=== PATIENT | male | born 1985 | race Caucasian/White ===

== ENCOUNTER 2016-09-16 18:04 | Inpatient (IN) | payer MEDICAID, OTHER ==
[~2016-09-16] VITALS: Ht 170.2 cm; Wt 50.0 kg
[~2016-09-16 18:04] MED LIST: ALBU2.5V36 NEB; ASCO500C7 PO; BUDE0.5A IH; CEFE1FRO IV; CRAN425C PO; DOCU-159 PO; DULR PR; FER325 PO; LOV40I SC; MAGN400O4 PO; MULT-552 PO; OMEP20CA16 PO; SIME80TA PO; UDTYL PO; VENL25TA PO; Vancomycin Hcl XX; ZINC220C5 PO
[2016-09-16] MEDS ORDERED: ACETAMINOPHEN 650 MG SUPP PR STA (18:08)
[2016-09-16] MEDS ORDERED: CEFEPIME 2GM/50 ML (PMX) 50 ML IVPB STA (18:08)
[2016-09-16] MEDS ORDERED: SODIUM CHLORIDE 0.9% 1L BAG IV* STA (18:08)
[2016-09-16] MEDS ORDERED: VANCOMYCIN 1 GM (PMX) 250 ML IVPB ONE (18:30)
[2016-09-16 19:03] VITALS: Ht 170.2 cm; Wt 50.0 kg
[2016-09-16 19:44] LABS: INR 3.69; MEAN CORPUSCULAR HEMOGLOBIN 27.9 pg (29.0-33.0); MEAN CORPUSCULAR HGB CONC 32.8 g/dl (32.0-37.0); MEAN CORPUSCULAR VOLUME 85.1 fl (82.0-101.0); MEAN PLATELET VOLUME 7.6 fl (7.4-10.4); PLATELET COUNT 86 10^3/UL (140-440); PROTIME 37.2 Sec (12.2-14.2); PT RATIO 2.9; RED BLOOD COUNT 1.17 10^6/ul (4.70-6.10); RED CELL DISTRIBUTION WIDTH 15.3 % (11.5-14.5); UNCORRECTED WBC 6.3 10^3/ul (4.8-10.8); WHITE BLOOD COUNT 6.3 10^3/ul (4.8-10.8)
--- NOTE | 2016-09-16 19:46 | RADRPT ---
PROCEDURE: XR Chest. CLINICAL INDICATION: Possible sepsis. TECHNIQUE: Single frontal view of the chest was obtained COMPARISON: 09/30/2014. FINDINGS: Tracheostomy tube at midline. Cardiac silhouette unremarkable. Calcified thoracic aorta. Left ángel g base atelectasis versus airspace disease versus small pleural effusion. Right lung is clear. There is no pleural effusion or pneumothorax. IMPRESSION: 1. Atherosclerotic calcifications in the thoracic aorta. 2. Left lung base air space disease with small pleural effusion. RPTAT: [facility] Physician Turner Date Time Electronically viewed and signed by Valerie Tobias Physician on 09/16/2016 19:46 RS/
[2016-09-16 20:04] LABS: ALANINE AMINOTRANSFERASE 23 IU/L (13-69); ANION GAP 10 (8-16); ASPARTATE AMINO TRANSFERASE < 8 IU/L (15-46); BLOOD UREA NITROGEN 24 mg/dl (7-20); CHLORIDE 129 mmol/L (97-110); CREATININE 0.59 mg/dl (0.61-1.24); SODIUM 147 mmol/L (135-144); TROPONIN-I 0.048 ng/ml (0.00-0.12)
[2016-09-16 20:05] LABS: PARTIAL THROMBOPLASTIN TIME 76.3 Sec (25.0-35.0)
[2016-09-16 20:06] LABS: CONDITION 1; HEMOGLOBIN 3.3 g/dl (14.0-18.0); LH ANALYZER COMMENTS 1
[2016-09-16 20:07] LABS: ALKALINE PHOSPHATASE < 20 IU/L (42-121); CALCIUM 2.1 mg/dl (8.4-10.2); CARBON DIOXIDE 9 mmol/L (21-31); GLUCOSE 42 mg/dl (70-220); POTASSIUM 1.3 mmol/L (3.5-5.1)
[2016-09-16 20:08] LABS: ALBUMIN < 1.0 g/dl (3.3-4.9); AMYLASE < 30 U/L (11-123); TOTAL PROTEIN < 2.0 g/dl (6.1-8.1)
[2016-09-16] MEDS ORDERED: DEXTROSE 50% 50 ML SYRINGE IV STA (20:08)
[2016-09-16 20:12] LABS: ADD UMIC YES; URINE BILIRUBIN (Dip) NEGATIVE (NEGATIVE); URINE BLOOD (Dip) 2+ (NEGATIVE); URINE COLOR YELLOW (YELLOW); URINE GLUCOSE (Dip) NEGATIVE (NEGATIVE); URINE KETONES (Dip) NEGATIVE (NEGATIVE); URINE LEUKOCYTE ESTERASE (Dip) 3+ (NEGATIVE); URINE NITRITE (Dip) NEGATIVE (NEGATIVE); URINE TOTAL PROTEIN (Dip) 2+ (NEGATIVE); URINE UROBILINOGEN (Dip) 0.2 E.U./dL (0.1-1.0)
[2016-09-16 21:00] LABS: SQUAMOUS EPITHELIAL CELL,UR MODERATE
[2016-09-16 21:01] LABS: BACTERIA,URINE MANY
[2016-09-16 21:53] LABS: HEMOGLOBIN 10.1 g/dl (14.0-18.0); MEAN CORPUSCULAR HEMOGLOBIN 27.5 pg (29.0-33.0); MEAN CORPUSCULAR HGB CONC 32.6 g/dl (32.0-37.0); MEAN CORPUSCULAR VOLUME 84.2 fl (82.0-101.0); MEAN PLATELET VOLUME 8.1 fl (7.4-10.4); PLATELET COUNT 241 10^3/UL (140-440); RED BLOOD COUNT 3.68 10^6/ul (4.70-6.10); RED CELL DISTRIBUTION WIDTH 15.8 % (11.5-14.5); UNCORRECTED WBC 20.5 10^3/ul (4.8-10.8); WHITE BLOOD COUNT 20.5 10^3/ul (4.8-10.8)
[2016-09-16 21:56] LABS: CONDITION 1; LH ANALYZER COMMENTS 1; SUSPECT 1
--- NOTE | 2016-09-16 21:59 | ERA ---
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 No further history is available. The patient is a phasic and EMS indicated they were told that the patient just appeared more confused however it is unknown with the patient's baseline mental status is. According to previous documentation the patient has a spinal cord injury at C1-C2-C3 that resulted in his quadriplegia and has a known history of anemia. Again no further information is available at this time. ROS All systems reviewed and are negative except as per history of present illness. Medications Home Meds Active Scripts [Vancomycin Hcl] 1 EA EACH No Conflict Check, 0 EA XX NOTE for 7 Days, EACH pharmacy to dose for 7 more days Prov:RAKESH BEST 10/02/14 Cefepime Hcl/Dextrose, Iso-Osm (Cefepime 1 Gm Injection) 1 Gm/50 Ml Froz.piggy, 1 GM IV Q12 for 7 Days Prov:RAKESH BEST 10/02/14 Acetaminophen* (Tylenol*) 160 Mg/5 Ml Soln, 650 MG PO Q6H Y for PAIN LEVEL 1-3 OR FEVER for 30 Days Prov:RAKESH BEST 10/02/14 Reported Medications Albuterol Sulfate* (Albuterol Sulfate* Neb) 0.5%-0.5 Ml Neb, 2.5 MG NEB Q4H Y for WHEEZING AND SOB, EA 09/29/14 Docusate Sodium* (Docusate Sodium*) 100 Mg Capsule, 100 MG PO QHS, CAP 09/29/14 Cranberry Extract (Cranberry) 425 Mg Capsule, 425 MG PO DAILY 09/29/14 Bisacodyl* (Bisacodyl*) 10 Mg Supp, 10 MG NJ Q24H for CONSTIPATION, SUPP 09/29/14 Enoxaparin Sodium* (Enoxaparin Sodium*) 40 Mg/0.4 Ml Disp.syrin, 40 MG SC DAILY , SYR 09/29/14 Ferrous Sulfate* (Ferrous Sulfate*) 325 Mg Tabec, 325 MG PO DAILY, TAB 09/29/14 Magnesium Hydroxide* (Milk Of Magnesia*) 400 Mg/5 Ml Oral.susp, 30 ML PO Q24H for CONSTIPATION, ML 09/29/14 Multivitamins* (Once Daily*) 1 Tab Tablet, 1 TAB PO DAILY, TAB 09/29/14 Omeprazole* (Omeprazole*) 20 Mg Capsule.dr, 20 MG PO DAILY, CAP 09/29/14 Budesonide* (Budesonide*) 0.5 Mg/2 Ml Ampul.neb, 0.5 MG IH BID, EA 09/29/14 Simethicone* (Anti-Gas/80*) 80 Mg Tab.chew, 80 MG PO DAILY Y for DISTENSION/GAS/ BLOATING, TAB.CHEW 09/29/14 Venlafaxine Hcl* (Effexor*) 25 Mg Tablet, 25 MG PO DAILY, TAB 09/29/14 Ascorbic Acid* (Vitamin C*) 500 Mg Capsule.sa, 500 MG PO DAILY, CAP 09/29/14 Zinc Sulfate* (Zinc Sulfate*) 220 Mg Cap, 220 MG PO DAILY, CAP 09/29/14 Allergies Allergies: Coded Allergies: No Known Allergy (Unverified , 09/29/14) PMhx/Soc History of Surgery: Yes (TRACH PLACEMENT) Anesthesia Reaction: No (UNKNOWN) Hx Neurological Disorder: Yes (QUADRIPLEGIA, ENCEPHALOPATHY) Hx Respiratory Disorders: Yes (TRACH TO MECH VENT) Hx Cardiac Disorders: No Hx Psychiatric Problems: No Hx Miscellaneous Medical Probl: Yes (vent dependent resp failure w/trach & vent ) Hx Alcohol Use: No (UNKNOWN) Hx Substance Use: No (UNKNOWN) Hx Tobacco Use: No (UNKNOWN) Smoking Status: Never smoker Physical Exam Vitals Vital Signs Date Time Temp Pulse Resp B/P Pulse Ox O2 Delivery O2 Flow Rate FiO2 09/16/16 21:45 101.8 125 16 119/66 100 Mechanical Ventilator 09/16/16 21:15 110 16 111/65 100 Mechanical Ventilator 09/16/16 20:45 112 16 107/56 100 Mechanical Ventilator 09/16/16 20:15 113 16 86/42 100 Mechanical Ventilator 09/16/16 19:45 114 16 88/36 100 Mechanical Ventilator 09/16/16 19:15 124 16 76/47 100 Mechanical Ventilator 09/16/16 19:03 107.3 125 16 117/98 100 09/16/16 18:45 131 16 78/50 100 Mechanical Ventilator 09/16/16 18:10 15 100 Physical Exam Constitutional:Well-developed. Cachectic male. Trach to vent dependent. HEENT:Normocephalic. Atraumatic.Pupils were equal round reactive to light. Moist mucous membranes.No tonsillar exudates. Neck: No nuchal rigidity. No lymphadenopathy. No posterior cervical spine tenderness or step-offs. Patient's head is turned to the right. Tracheostomy site clean dry and intact. Respiratory: Not using accessory muscles of respiration.Lungs were clear to auscultation bilaterally. No rhonchi. No rales. No wheezing. Cardiovascular: Regular rate regular rhythm.No murmurs. No rubs were appreciated.S1, S2 normal. Distal pulses are palpable 2+ bilaterally. GI: Abdomen was soft. Nontender. Non Distended. No pulsatile abdominal masses or bruits. No rebound. No guarding. Bowel sounds were present and normal. Muscle skeletal: Paraplegia with muscle atrophy of the upper and lower extremities Skin: Diaphoretic and very warm to the touch with no petechia, no purpura. No lesions on the palms or the soles of the feet. No maculopapular rash. 5 cm x 4 cm well-circumscribed stage II ulcer over the right buttocks with no purulent drainage NEURO: Patient was alert. Aphasic. Bedbound. Result Diagram: 09/16/16214209/[id number] Results 24 hrs Laboratory Tests Test 09/16/16 18:50 09/16/16 18:55 09/16/16 18:57 09/16/16 20:56 Activated Partial Thromboplast Time 76.3Sec Blood Morphology Comment Hematocrit 10.0% Hemoglobin 3.3g/dl INR International Normalized Ratio 3.69 Mean Corpuscular Hemoglobin 27.9pg Mean Corpuscular Hemoglobin Concent 32.8g/dl Mean Corpuscular Volume 85.1fl Mean Platelet Volume 7.6fl Platelet Count 8610^3/UL Prothrombin Time 37.2Sec Prothrombin Time Ratio 2.9 Red Blood Count 1.1710^6/ul Red Cell Distribution Width 15.3% White Blood Count 6.310^3/ul Alanine Aminotransferase (ALT/SGPT) 23IU/L Albumin < 1.0g/dl Albumin/Globulin Ratio 1.00 Alkaline Phosphatase < 20IU/L Amylase Level < 30U/L Anion Gap 10 Aspartate Amino Transf (AST/SGOT) < 8IU/L Blood Urea Nitrogen 24mg/dl Calcium Level 2.1mg/dl Carbon Dioxide Level 9mmol/L Chloride Level 129mmol/L Creatinine 0.59mg/dl Direct Bilirubin 0.00mg/dl Globulin 1.00g/dl Glucose Level 42mg/dl Indirect Bilirubin 0.0mg/dl Lactic Acid Level 1.0mmol/L 1.1mmol/L Lipase < 10U/L Potassium Level 1.3mmol/L Sodium Level 147mmol/L Total Bilirubin 0.0mg/dl Total Protein < 2.0g/dl Troponin I 0.048ng/ml Urine Amorphous Urates MODERATE Urine Bacteria MANY Urine Bilirubin NEGATIVE Urine Calcium Oxalate Crystals MODERATE Urine Clarity CLOUDY Urine Color YELLOW Urine Glucose NEGATIVE% Urine Hemoglobin 2+ Urine Ketones NEGATIVE Urine Leukocyte Esterase 3+ Urine Microscopic RBC 5-10/HPF Urine Microscopic WBC >200/HPF Urine Nitrite NEGATIVE Urine Specific Beaver 1.010 Urine Squamous Epithelial Cells MODERATE Urine Total Protein 2+ Urine Urobilinogen 0.2 E.U./dL Urine pH >=9.0 Test 09/16/16 21:43 Activated Partial Thromboplast Time 47.0Sec Alanine Aminotransferase (ALT/SGPT) 25IU/L Albumin 3.5g/dl Albumin/Globulin Ratio 0.92 Alkaline Phosphatase 74IU/L Amylase Level 97U/L Anion Gap 18 Aspartate Amino Transf (AST/SGOT) 43IU/L Blood Morphology Comment Blood Urea Nitrogen 83mg/dl Calcium Level 8.2mg/dl Carbon Dioxide Level 28mmol/L Chloride Level 93mmol/L Creatinine 2.21mg/dl Direct Bilirubin 0.00mg/dl Globulin 3.80g/dl Glucose Level 152mg/dl Hematocrit 31.0% Hemoglobin 10.1g/dl INR International Normalized Ratio 1.68 Indirect Bilirubin 0.1mg/dl Lipase 42U/L Mean Corpuscular Hemoglobin 27.5pg Mean Corpuscular Hemoglobin Concent 32.6g/dl Mean Corpuscular Volume 84.2fl Mean Platelet Volume 8.1fl Platelet Count 91277^3/UL Potassium Level 3.7mmol/L Prothrombin Time 19.9Sec Prothrombin Time Ratio 1.6 Red Blood Count 3.6810^6/ul Red Cell Distribution Width 15.8% Sodium Level 135mmol/L Total Bilirubin 0.1mg/dl Total Protein 7.3g/dl Troponin I 0.247ng/ml White Blood Count 20.510^3/ul Current Medications Medications (Trade) Dose Ordered Sig/Shannen Route PRN Reason Start Time Stop Time Status Last Admin Dose Admin Sodium Chloride (NS) 2,170 ml BOLUS OVER 2 HOURS STAT IV* 09/16/16 18:08 09/16/16 18:11 DC 09/16/16 19:01 Acetaminophen 650 mg 650 mg ONCE STAT NJ 09/16/16 18:08 09/16/16 18:11 DC 09/16/16 18:56 Cefepime HCl 50 ml @ 100 mls/hr ONCE STAT IVPB 09/16/16 18:08 09/16/16 18:37 DC 09/16/16 19:20 Vancomycin HCl (Vancocin) 250 ml @ 125 mls/hr ONCE ONCE IVPB 09/16/16 18:30 09/16/16 20:29 DC 09/16/16 20:23 Dextrose 50 ml 50 ml ONCE STAT IV 09/16/16 20:08 09/16/16 20:09 DC 09/16/16 20:22 Norepinephrine (Levophed) 250 ml @ 7.5 mls/hr ONCE STAT IV 09/16/16 22:00 09/18/16 07:19 Acetaminophen (Tylenol Supp) 650 mg ONCE ONCE NJ 09/16/16 22:00 09/16/16 22:07 DC 09/16/16 22:23 Procedures/MDM The patient presented to the emergency department with an acute and persistent change in their mental status. The differential diagnosis is diverse however reversible causes such as hypoglycemia, opiate overdose, thiamine deficiency were immediately considered. The patient was placed on a cardiac exercise physiologist, continuous pulse oximetry and IV access was established. The patients airway was secure however hypoxic events such as anemia, shock, or severe pulmonary disease were all considered as etiologies in this patients presentation. Circulation assessed with poor good cap refill and did require fluids and pressure support. Finger stick for rapid glucose determined to be normal. The patient was pyretic upon arrival with a temperature of 107 rectally. Cooling measures were immediately performed and the patient received rectal acetaminophen for resolution of the patient's elevated core temperature. 12 Lead EKG tracing ordered and reviewed by myself showed: Sinus tachycardia 118 bpm and no arrhythmia. NJ interval normal. QRS duration normal. No ST segment elevation No ST segment depression. No changes consistent with acute ischemia. The patient had a urinary tract infection. Patient's infectious symptoms have not stabilized and the patient is at risk of rapid decompensation. The patient will be admitted for careful hydration, antibiotic therapy, and infectious source control. Severe Sepsis Assessment: Infectious Source: pyleonephritis End organ damage indicated by: Lactate > 2.0 mmol/L Hypotension( SBP < 90 or >40 mmHG drop or MAP < 65) Acute Resp Failure (sat < 92% w/o oxygen) Severe Sepsis Managment: Blood Cultures X 2 before broad spectrum antibiotics initiated within 3 hours of recognition. 30 ml/kg NS bolus Completed Initial Lactate: Pending Repeat Lactate pending Septic Shock Assessment (1 hour post 30 ml/kg fluid bolus): Hypotension (SBP < 90 or 40 mmHg drop, MAP < 65): Yes Lactic acid > 4.0 pending Perfusion Reassessment for Septic Shock: Temp 101.8, Pulse 125, RR 16, BP 119/66 Heart Exam: Tachycardic Lung Exam: No Crackles Capillary Refill: Delayed Peripheral Pulses: Radially present Skin: warm Hypotensive Treatment (not required for isolated lactic acid elevation): Comfort Care: No Central LIne: femoral line Vasopressor started: norepinephrine Troponin was elevated and the patient received aspirin via his PEG tube. I considered further perfusion assessment with CVP measurement, SCVO2, bedside ultrasound volume assessment, passive leg raise, trial of further fluid bolus. And preceded with IV fluids The patient had significant abnormalities at the lab which included hypo-kalemia , hypocalcemia, and severe anemia. Type and screen was obtained and the patient was typed and crossed and 2 units of packed red blood cells had been ordered. However laboratory inform me that they were concerned that the labs are not accurate and therefore the labs are being repeated and will be followed up with the oncoming physician Dr. Montano. Repeat labs indicated that the hemoglobin level was 10 and therefore the packed red blood cells were not given to the patient The patient will admitted to the telemetry service in serious condition with anticipated stay of greater than 2 midnights. The patient was not stable for transfer and I spoke with Dr. Whelan from [facility] who was in agreement with this. Critical Care: Time: 80 minutes Treatments/Evaluations: Close monitoring and treatment of unstable vital signs, cardiorespiratory, and neurologic status, while maintaining tight balance of fluid, respiratory, and cardiac interventions. The patient was critically ill and required central venous access. The patient was unable to consent due to his altered mental status and after was prepped and draped in a sterile fashion. Time out performed and the left femoral vein was cannulated using the Seldinger technique after anesthesia administered with 1% lidocaine locally. A triple lumen catheter used. The guidewire was easily thread into the vessel. The guidewire was retrieved, removed and disposed of. All three ports keshia back venous blood and flushed easily. The line was secured in place with 2 simple interrupted sutures and a biostat was applied over the area in inoculation. The patient tolerated the procedure well with no complications. ED Ultrasound: Central line placed by me using concurrent ultrasound guidance. Real time image archived in the medical record confirms vascular anatomy. Departure Diagnosis: Primary Impression: Encephalopathy Additional Impressions: Heatstroke Severe sepsis Urinary tract infection NSTEMI (non-ST elevation myocardial infarction) Condition: Serious HOLLI BARRERA Sep 16, 2016 21:59
[2016-09-16] MEDS ORDERED: NORepinephrine 8MG/250 ML (PMX 250 ML IV STA (22:00)
[2016-09-16] MEDS ORDERED: ACETAMINOPHEN 650 MG SUPP PR ONE (22:00)
[2016-09-16 22:01] LABS: ALBUMIN 3.5 g/dl (3.3-4.9)
[2016-09-16 22:02] LABS: INR 1.68; POTASSIUM 3.7 mmol/L (3.5-5.1); PROTIME 19.9 Sec (12.2-14.2); PT RATIO 1.6
[2016-09-16 22:04] LABS: BILIRUBIN,INDIRECT 0.1 mg/dl (0-1.1); BILIRUBIN,TOTAL 0.1 mg/dl (0.2-1.3); CREATININE 2.21 mg/dl (0.61-1.24)
[2016-09-16 22:05] LABS: ALBUMIN/GLOBULIN RATIO 0.92; CALCIUM 8.2 mg/dl (8.4-10.2); TOTAL PROTEIN 7.3 g/dl (6.1-8.1)
[2016-09-16 22:19] LABS: TROPONIN-I 0.247 ng/ml (0.00-0.12)
[2016-09-16 22:35] LABS: LYMPHOCYTES # 1.2 10^3/ul (0.8-2.9); MONOCYTE # 1.8 10^3/ul (0.3-0.9); NEUTROPHIL # 16.4 10^3/ul (1.6-7.5)
[2016-09-16 22:38] LABS: LYMPHOCYTES # 0.6 10^3/ul (0.8-2.9); MONOCYTE # 0.2 10^3/ul (0.3-0.9); NEUTROPHIL # 5.2 10^3/ul (1.6-7.5)
[2016-09-16 22:42] LABS: AADO2 Arterial 268.8 mmHg (7.0-24.0); Arterial Base Excess -2.3 mmol/L (-3.0-3); Arterial HCO3 26.4 mmol/L (22.0-26.0); Blood Gas Mean Airway Pressure 4.6; MODE VENT - AC
[2016-09-16] MEDS ORDERED: ALBUTEROL 0.5% (NEB) 2.5 MG/0.5 ML AMP NEB PRN (23:00)
[2016-09-16] MEDS ORDERED: ACETAMINOPHEN 650MG/20.3ML CUP PO PRN (23:00)
[2016-09-16] MEDS ORDERED: NACL 0.9% 3 ML SYG IV SCH (23:00)
[2016-09-16] MEDS ORDERED: morphine 2 MG INJ IV PRN (23:00)
[2016-09-16] MEDS ORDERED: ASPIRIN 325 MG TAB PEG ONE (23:00)
[2016-09-16] MEDS: MAGNESIUM HYDROXIDE 30ML CUP PO SCH (23:00)
[2016-09-16] MEDS ORDERED: VANCOMYCIN IV PER PHARMACY XX SCH (23:00)
[2016-09-16] MEDS: BISACODYL 10 MG SUPP PR SCH (23:00)
[2016-09-16] MEDS: D5W-0.45 NACL + KCL 20 MEQ 1,000 ML IV SCH (23:24)
[2016-09-16] MEDS: PIPER-TAZO 3.375 GM IV (PMX) 100 ML IVPB SCH (23:24)
--- NOTE | 2016-09-17 01:26 | HP ---
DATE OF ADMISSION: 09/16/2016 TIME: 10:15 p.m. CHIEF COMPLAINT: Altered level of consciousness. HISTORY OF PRESENT ILLNESS: The patient is a 31-year-old male who is vent dependent and has a known history of quadriplegia secondary to spinal cord injury at C1, C2, C3. [facility]. The patient reportedly had a sudden change in mental status. The patient is no nverbal. The EMS indicated that the patient appeared more confused. The patient's baseline mental status is unclear. History is obtained from previous medical records. The patient's temperature wa s severely elevated on arrival at 107.3 and it has improved now to 101.8. The patient was hospitali zed here in 2014 under the diagnosis of healthcare-associated pneumonia. The patient is unable to p rovide any history. PAST MEDICAL HISTORY: 1. Quadriplegia secondary to cervical injury with tracheostomy and vent as well as PEG tube placeme nt and chronic encephalopathy. 2. History of healthcare-associated pneumonia. 3. History of anemia of chronic disease as well as sacral decubitus ulcer. HOME MEDICATIONS: Albuterol, Colace, cranberry extract, Lovenox, ferrous sulfate, Milk of magnesia, multivitamin, omeprazole, budesonide, simethicone, Effexor, zinc sulfate, and vitamin C. ALLERGIES: NO KNOWN DRUG ALLERGIES. FAMILY HISTORY: Unknown. SOCIAL HISTORY: Unknown. REVIEW OF SYSTEMS: A 12-point review of systems is unable to be obtained secondary to patient's poo r mentation. PHYSICAL EXAMINATION: VITAL SIGNS: T-max was 107.3, T-current is 101.8, pulse is 125, respiratory rate 16, BP is 190/66, saturation 100% on mechanical ventilation. GENERAL: Nonverbal. HEENT: Normocephalic, atraumatic. LUNGS: Clear to auscultation. CARDIOVASCULAR: Tachycardic. ABDOMEN: Nondistended, soft. EXTREMITIES: No clubbing, cyanosis, or edema. LABORATORIES: White count is 20.5, hemoglobin 7.1, platelets are 241. Chemistry: Sodium is 135, p otassium is 3.7, chloride 93, anion gap is 18, BUN is 83, creatinine is 2.21, calcium is 8.2. Tropo nins 0.247. INR is 1.68. UA initially is greater than 200 WBCs, 3+ leukocyte esterase. DIAGNOSTICS: Chest x-ray shows atherosclerotic calcifications in the thoracic aorta and left lung b ase airspace disease with small pleural effusion. ASSESSMENT AND PLAN: 1. Severe sepsis secondary to urinary tract infection. The patient had a T-max of 107 on arrival. The patient does have leukocytosis and tachycardia and was reported as acute encephalopathy. The p atient will be started on antibiotics. Will get a urine culture with an ID consultation in the a.m. measures as needed. 2. Demand ischemia, likely secondary to sepsis. We will trend the troponins. 3. Acute kidney injury, likely secondary to sepsis. Will treat with IV fluids and antibiotics. 4. History of quadriplegia, status post tracheostomy and PEG. No acute issues. 5. Prophylaxis: SCDs. Dictated By: DIANA HORNE MD BS/NTS Conf#: [id number] DID#: [id number]
--- NOTE | 2016-09-17 01:56 | RADRPT ---
PROCEDURE: CT brain without contrast. CLINICAL INDICATION: Headache. TECHNIQUE: CT of the brain was performed using a [employer] 64-slice VCT scann er. Contiguous axial images using 5-mm slice thickness were obtained from the skull base to the rosina soto without contrast. Coronal and sagittal reformatted images were obtained. Images were reviewed on a PACS workstation. Exam CTD/vol = 44.40 mGy. Total exam DLP = 720.23 mGy-cm. COMPARISON: None. FINDINGS: The ventricles and cortical sulci are within normal limits for patient's age. There are no areas of abnormal attenuation within the brain parenchyma. There is no mass effect or midline shift. There is no intracranial hemorrhage or abnormal extra-axial collection. The calvarium is intact. There is no evidence of fracture. Visualized paranasal sinuses and mastoi d air cells are clear. IMPRESSION: No acute intracranial abnormality identified. .Avtar Daniel MD, MD Date Time Electronically viewed and signed by .Avtar Daniel MD, on 09/17/2016 01:55 .T/
[2016-09-17] MEDS: PANTOPRAZOLE 40 MG INJ IV SCH (05:56)
[2016-09-17] MEDS: PIPER-TAZO 3.375 GM IV (PMX) 100 ML IVPB SCH ×3 (05:57→18:23)
[2016-09-17] MEDS ORDERED: PANTOPRAZOLE (EC) 40 MG TAB PO SCH (06:00)
[2016-09-17 06:01] LABS: HEMATOCRIT 32.2 % (42.0-52.0); HEMOGLOBIN 10.6 g/dl (14.0-18.0); LYMPHOCYTES # 1.2 10^3/ul (0.8-2.9); MEAN CORPUSCULAR HEMOGLOBIN 27.7 pg (29.0-33.0); MEAN CORPUSCULAR HGB CONC 32.7 g/dl (32.0-37.0); MEAN CORPUSCULAR VOLUME 84.5 fl (82.0-101.0); MONOCYTE # 1.2 10^3/ul (0.3-0.9); MONOCYTES % 7.2 % (0.0-11.0); NEUTROPHIL # 14.3 10^3/ul (1.6-7.5); NEUTROPHILS % 85.8 % (39.0-77.0); PLATELET COUNT 179 10^3/UL (140-440); RED BLOOD COUNT 3.81 10^6/ul (4.70-6.10); RED CELL DISTRIBUTION WIDTH 15.9 % (11.5-14.5); UNCORRECTED WBC 16.7 10^3/ul (4.8-10.8); WHITE BLOOD COUNT 16.7 10^3/ul (4.8-10.8)
[2016-09-17 06:11] LABS: POTASSIUM 4.2 mmol/L (3.5-5.1)
[2016-09-17 06:13] LABS: CREATININE 1.69 mg/dl (0.61-1.24)
[2016-09-17 06:14] LABS: CALCIUM 8.3 mg/dl (8.4-10.2)
[2016-09-17 06:15] LABS: CONDITION 1; LH ANALYZER COMMENTS 1; MAGNESIUM 2.6 mg/dl (1.7-2.5)
[2016-09-17] MEDS: MULTIVITAMINS THERAPEUTIC TAB PO SCH (08:58)
[2016-09-17] MEDS: ZINC SULFATE 220 MG CAP PO SCH (08:58)
[2016-09-17] MEDS: VENLAFAXINE 25 MG TAB PO SCH (08:58)
[2016-09-17] MEDS: ASCORBIC ACID 500 MG TAB PO SCH (08:58)
[2016-09-17] MEDS: FERROUS SULFATE (EC) 325 MG TAB PO SCH (08:58)
[2016-09-17] MEDS ORDERED: NON-FORMULARY/PATIENT OWN MED (Cranberry Extract (Cranberry) 425 MG) PO SCH (09:00)
[2016-09-17] MEDS ORDERED: NON-FORMULARY/PATIENT OWN MED (Omeprazole* 20 MG) PO SCH (09:00)
[2016-09-17] MEDS: ENOXAPARIN 40 MG/0.4 ML SYG SC SCH (09:01)
[2016-09-17] MEDS: D5W-0.45 NACL + KCL 20 MEQ 1,000 ML IV SCH (09:01)
[2016-09-17] MEDS: BUDESONIDE (NEB) 0.5MG/2ML AMP INH SCH ×2 (09:09→20:00)
[2016-09-17] MEDS: ONDANSETRON 4 MG INJ IV PRN (14:14)
--- NOTE | 2016-09-17 14:27 | PN ---
DATE: 09/17/2016 SUBJECTIVE: The patient is alert. Family members at the bedside. No acute events overnight. OBJECTIVE VITAL SIGNS: T-max 101.8, presently 99.9, pulse is 103 to 112, respirations 14, blood pressure is t o 98 to 141 systolic over 61 to 82 diastolic, saturating at 100% on mechanical ventilation, FIO2 of 40. GENERAL: The patient lying in bed, not verbal, opens eyes. No acute distress. HEENT: Pupils equal, round, reactive to light. Extraocular muscles intact. NECK: Supple, no thyromegaly. LUNGS: Clear to auscultation bilaterally. CARDIOVASCULAR: Tachycardic heart rate. No rubs or gallops. ABDOMEN: Soft, nontender, nondistended. Normal bowel sounds. MUSCULOSKELETAL: No lower extremity edema bilaterally. LABORATORY DATA: WBC 16.7, hemoglobin 10.6, hematocrit 32.2, platelets of 179. Sodium 137, potassi um 4.2, chloride 96, CO2 26, BUN of 79, creatinine is down to 1.69. Third troponin is 0.192, 4th is 0.142. UA shows 3+ leukocyte esterase positive. ASSESSMENT AND PLAN: This is a 31-year-old male, vent dependent, history of quadriplegia secondary to spinal cord injury, comes from [facility] facility with severe sepsis secondary to urinary t ract infection. 1. Severe sepsis, again white blood cell count slightly less than yesterday, but still elevated. S till having some fevers, but lessened in intensity than yesterday. Continue broad spectrum antibiot ics, Tylenol p.r.n. pain and fevers. Consider ID consult. Follow up culture results. Morphine p.r .n. for pain. Zofran p.r.n. for nausea, vomiting. 2. History of trach. Continue mechanical ventilation for now. Consider followup pulmonary consult for vent management as well. 3. Gastrointestinal prophylaxis. Continue Protonix. 4. Deep venous thrombosis prophylaxis, he is on Lovenox. 5. Acute renal insufficiency. Again secondary to sepsis, slowly improving. Continue to monitor ur ine output. Continue IV fluids for now. 6. History of quadriplegia, status post tracheostomy and percutaneous endoscopic gastrostomy. Cont inue to monitor for now . Dictated By: KINGA NUNEZ/JENNIFER Conf#: [id number] DID#: [id number]
[2016-09-17 19:30] VITALS: TEMP 99.1
[2016-09-17] MEDS ORDERED: VANCOMYCIN 750 MG in SOD CHLORIDE 0.9% 150 ML IVPB SCH (20:00)
[2016-09-17] MEDS ORDERED: VANCOMYCIN 1 GM in NS 250 ML IVPB SCH (20:00)
[2016-09-17] MEDS: DOCUSATE SODIUM 100 MG CAP PO SCH (21:00)
[2016-09-17 21:50] VITALS: RESP 14
[2016-09-17] MEDS: BISACODYL 10 MG SUPP PR SCH (23:00)
[2016-09-17] MEDS: MAGNESIUM HYDROXIDE 30ML CUP PO SCH (23:00)
[2016-09-17 23:30] VITALS: BP 107/67; PULSE 89; RESP 14
[2016-09-17 23:37] VITALS: RESP 14
[2016-09-17 23:45] VITALS: BP 85/58; PULSE 84; RESP 12
[2016-09-18] VITALS (87 sets, daily range): BP systolic 82–163; BP diastolic 51–110; PULSE 45–103; RESP 12–22
[2016-09-18] MEDS ORDERED: NORepinephrine 8MG/250 ML (PMX 250 ML IV SCH
[2016-09-18] MEDS: D5W-0.45 NACL + KCL 20 MEQ 1,000 ML IV SCH ×4 (00:31→20:08)
[2016-09-18] MEDS: PIPER-TAZO 3.375 GM IV (PMX) 100 ML IVPB SCH ×5 (00:35→23:58)
[2016-09-18 05:12] LABS: BASOPHILS % 0.1 % (0.0-2.0); HEMATOCRIT 27.8 % (42.0-52.0); HEMOGLOBIN 8.9 g/dl (14.0-18.0); LYMPHOCYTES # 1.1 10^3/ul (0.8-2.9); LYMPHOCYTES % 7.1 % (15.0-51.0); MEAN CORPUSCULAR HEMOGLOBIN 27.4 pg (29.0-33.0); MEAN CORPUSCULAR HGB CONC 32.1 g/dl (32.0-37.0); MEAN CORPUSCULAR VOLUME 85.3 fl (82.0-101.0); MEAN PLATELET VOLUME 10.5 fl (7.4-10.4); MONOCYTE # 0.6 10^3/ul (0.3-0.9); MONOCYTES % 3.8 % (0.0-11.0); NEUTROPHIL # 13.3 10^3/ul (1.6-7.5); PLATELET COUNT 126 10^3/UL (140-440); RED BLOOD COUNT 3.26 10^6/ul (4.70-6.10); UNCORRECTED WBC 14.9 10^3/ul (4.8-10.8); WHITE BLOOD COUNT 14.9 10^3/ul (4.8-10.8)
[2016-09-18 05:29] LABS: CONDITION 1; LH ANALYZER COMMENTS 1
[2016-09-18 05:37] LABS: POTASSIUM 5.1 mmol/L (3.5-5.1)
[2016-09-18 05:40] LABS: CREATININE 0.85 mg/dl (0.61-1.24)
[2016-09-18] MEDS: PANTOPRAZOLE 40 MG INJ IV SCH (05:52)
[2016-09-18] MEDS: VENLAFAXINE 25 MG TAB PO SCH (08:56)
[2016-09-18] MEDS: MULTIVITAMINS THERAPEUTIC TAB PO SCH (08:56)
[2016-09-18] MEDS: FERROUS SULFATE (EC) 325 MG TAB PO SCH (08:56)
[2016-09-18] MEDS: ASCORBIC ACID 500 MG TAB PO SCH (08:56)
[2016-09-18] MEDS: ENOXAPARIN 40 MG/0.4 ML SYG SC SCH (09:01)
[2016-09-18] MEDS: ZINC SULFATE 220 MG CAP PO SCH (09:03)
[2016-09-18] MEDS: BUDESONIDE (NEB) 0.5MG/2ML AMP INH SCH ×2 (09:53→21:27)
--- NOTE | 2016-09-18 10:23 | PN ---
Date/Time of Note Date/Time of Note DATE: 09/18/16 TIME: 10:17 Assessment/Plan VTE Prophylaxis VTE Prophylaxis Intervention: other Lines/Catheters IV Catheter Type (from Nrsg): Central Line Central line still needed: Yes Urinary Cath still in place: Yes Reason Cath still needed: other (indicate) Assessment/Plan Chief Complaint/Hosp Course ASSESSMENT AND PLAN: This is a 31-year-old male, vent dependent, history of quadriplegia secondary to spinal cord injury, comes from nursing home facility with severe sepsis secondary to urinary tract infection. 1. Severe sepsis, Continue broad spectrum antibiotics, Tylenol p.r.n. pain and fevers. Continue aggressive IV fluids and pressors 2. History of trach. Continue mechanical ventilation for now. Consult blacksmith helper for vent management 3. Acute renal insufficiency. Likely secondary to sepsis, slowly improving. Continue to monitor urine output. Continue IV fluids for now. 4. History of quadriplegia, status post tracheostomy and percutaneous endoscopic gastrostomy. Continue to monitor for now 5. Gastrointestinal prophylaxis. Continue Protonix. 6. Deep venous thrombosis prophylaxis,on Lovenox. We will continue monitor patient closely for recommendation management treatment as clinical course Plan to transfer to telemetry floor when off pressors Restart feeding via Isosource Problems: Subjective 24 Hr Interval Summary Free Text/Dictation Patient is minimally responsive to pain stimuli Continues to be on pressors. Levophed at 4 vargas Vent dependent via trach Exam/Review of Systems Vital Signs Vitals Vital Signs Date Time Temp Pulse Resp B/P Pulse Ox O2 Delivery O2 Flow Rate FiO2 09/18/16 09:54 53 14 100 50 09/18/16 09:15 107/72 09/18/16 09:00 Mechanical Ventilator 09/18/16 08:00 98.8 Intake and Output 09/17/16 09/17/16 09/18/16 15:00 23:00 07:00 Intake Total 207.5 ml Output Total 700 ml 850 ml 100 ml Balance -700 ml -850 ml 107.5 ml Exam General: The patient is cachectic with severe muscle wasting, minimal response HEENT: Atraumatic, normocephalic. The pupils are symmetric Neck: Tracheostomy in place Chest: Normal Lungs: Decreased breath sounds bilateral lower lung field Heart: Normal S1-S2, Abdomen: Soft , nontender, nondistended , bowel sounds are present. PEG tube in place Extremities: Severe muscle wasting and contracture Neurologic: Minimal response to pain stimuli Results Result Diagram: 09/18/16 0414 09/18/164 Results 24 hrs Laboratory Tests Test 09/18/16 04:14 09/18/16 08:23 Anion Gap 16 Basophils # 0.0 Basophils % 0.1 Blood Morphology Comment Blood Urea Nitrogen 30 #H Calcium Level 8.0 L Carbon Dioxide Level 25 Chloride Level 104 Creatinine 0.85 Eosinophils # 0.0 Eosinophils % 0.0 Glucose Level 382 #H Hematocrit 27.8 L Hemoglobin 8.9 L Lymphocytes # 1.1 Lymphocytes % 7.1 L Mean Corpuscular Hemoglobin 27.4 L Mean Corpuscular Hemoglobin Concent 32.1 Mean Corpuscular Volume 85.3 Mean Platelet Volume 10.5 H Monocytes # 0.6 Monocytes % 3.8 Neutrophils # 13.3 H Neutrophils % 89.0 H Nucleated Red Blood Cells # 0.0 Nucleated Red Blood Cells % 0.0 Platelet Count 126 #L Potassium Level 5.1 Red Blood Count 3.26 L Red Cell Distribution Width 16.0 H Sodium Level 140 White Blood Count 14.9 H Bedside Glucose 147 Medications Medications Current Medications Potassium Chloride/Dextrose/ Sod Cl (D5-1/2ns + KCl 20 Meq) 1,000 ml @ 100 mls/ hr Q10H IV Last administered on 09/18/16 08:28; Admin Dose 100 MLS/HR; Start at 22:41 Ondansetron HCl (Zofran Inj) 4 mg Q6H PRN IV NAUSEA AND/OR VOMITING Last administered on 09/17/16 14:14; Admin Dose 4 MG; Start 09/16/16 at 23:00 Morphine Sulfate 2 mg 2 mg Q4H PRN IV SEVERE PAIN LEVEL 7-10; Start 09/16/16 at 23:00 Piperacillin Sod/ Tazobactam Sod (Zosyn 3.375gm/ 100 ml (Pmx)) 100 ml @ 200 mls /hr Q6 IVPB Last administered on 09/18/16 05:53; Admin Dose 200 MLS/HR; Start 09/17/16 at 00:00 Acetaminophen (Tylenol Liquid) 650 mg Q6H PRN PO PAIN LEVEL 1-3 OR FEVER Last administered on 09/17/16 14:44; Admin Dose 650 MG; Start 09/16/16 at 23:00 Ascorbic Acid (Vitamin C) 500 mg DAILY PO Last administered on 09/18/16 08:56; Admin Dose 500 MG; Start 09/17/16 at 09:00 Bisacodyl (Dulcolax Supp) 10 mg Q24H RI ; Start 09/16/16 at 23:00 Docusate Sodium (Colace) 100 mg QHS PO ; Start 09/17/16 at 21:00 Enoxaparin Sodium (Lovenox) 40 mg DAILY SC Last administered on 09/18/16 09:01 ; Admin Dose 40 MG; Start 09/17/16 at 09:00 Ferrous Sulfate (Ferrous Sulfate (Ec)) 325 mg DAILY PO Last administered on 09/18 08:56; Admin Dose 325 MG; Start 09/17/16 at 09:00 Magnesium Hydroxide (Milk Of Mag) 30 ml Q24H PO ; Start 09/16/16 at 23:00 Multivitamins Therapeutic (Theragran) 1 tab DAILY PO Last administered on 08:56; Admin Dose 1 TAB; Start 09/17/16 at 09:00 Simethicone (Mylicon) 80 mg DAILY PRN PO DISTENSION/GAS/BLOATING; Start at 23:00 Venlafaxine HCl (Effexor) 25 mg DAILY PO Last administered on 09/18/16 08:56; Admin Dose 25 MG; Start 09/17/16 at 09:00 Zinc Sulfate (Zinc Sulfate) 220 mg DAILY PO Last administered on 09/18/16 09:03 ; Admin Dose 220 MG; Start 09/17/16 at 09:00 Pantoprazole 40 mg 40 mg DAILY@06 IV Last administered on 09/18/16 05:52; Admin Dose 40 MG; Start 09/17/16 at 06:00 Norepinephrine 250 ml @ 1.875 mls/ hr TITRATE IV Last administered on 00:29; Admin Dose 7.5 MLS/HR; Start 09/18/16 at 00:00 Norepinephrine 16 mg/Dextrose 500 ml @ 1.87 mls/hr TITRATE IV ; Start 09/17/16 at 23:45 Vancomycin HCl/ Sodium Chloride (Vancocin/NS) 150 ml @ 75 mls/hr Q12H IVPB ; Start 09/18/16 at 11:00 DEBORAH CHEN MD Sep 18, 2016 10:23
[2016-09-18] MEDS: ONDANSETRON 4 MG INJ IV PRN (10:47)
[2016-09-18] MEDS: VANCOMYCIN 750 MG in SOD CHLORIDE 0.9% 150 ML IVPB SCH ×2 (11:30→22:36)
[2016-09-18 14:56] LABS: AADO2 Arterial 204.7 mmHg (7.0-24.0); Allen Test ACCEPTAB; Arterial COHb 0.3 % (0.0-3.0); Arterial Fraction of Oxyhgb 96.5 % (93.0-99.0); Arterial HCO3 24.8 mmol/L (22.0-26.0); Arterial MetHb 0 % (0.0-1.5); Arterial Total Hemglobin 10.6 g/dl (12.0-18.0); Blood Gas Low PEEP Setting 0 cmH2O; MODE VENT - AC
--- NOTE | 2016-09-18 16:15 | CONS ---
DATE OF ADMISSION: 09/16/2016 DATE OF CONSULTATION: 09/18/2016 REASON FOR CONSULTATION: Ventilator management. Thank you, Dr. Montano, for this consultation. HISTORY OF PRESENT ILLNESS: This is a 31-year-old gentleman with history of vent-dependent respirat ory failure, quadriplegia, spinal cord injury, transferred from [facility] facility for change in mentation, found to have a fever of 107 on admission and 101 with leukocytosis and urinalysis pos itive for E. coli infection, positive for gram-negative rods, cultures of which are pending at this time. The patient is currently nonverbal and unable to give me further details. PAST MEDICAL HISTORY: As above. MEDICATIONS: Per chart. ALLERGIES: NONE. PHYSICAL EXAMINATION: GENERAL: Chronically ill appearing gentleman, appears comfortable at rest, no acute distress. VITAL SIGNS: Currently afebrile, pulse is 56, blood pressure 128/95, O2 saturation 96%, FIO2 of 50% . NECK: Supple. No JVD or lymphadenopathy. CARDIAC: S1, S2, no added sounds or murmurs. CHEST: Diminished air entry bilaterally. ABDOMEN: Soft, nontender. No guarding or rebound. EXTREMITIES: No cyanosis, clubbing, edema. NEUROLOGIC: Generalized weakness. LABORATORY DATA: White count 14.9, hemoglobin 8.9, platelets 126, BUN 30, creatinine 0.85. Initial ABG: pH 7.24, pCO2 of 37, pCO2 of 62, PaO2 of 381. INR 1.68. Urinalysis positive for UTI. IMPRESSION AND PLAN: 1. Gram-negative urinary tract infection with septic shock. 2. Vent dependent respiratory failure. 3. Chronic encephalopathy. 4. History of C-spine disease with quadriplegia. 5. Dysphagia with G-tube. PLAN: The patient will require: 1. Continue broad-spectrum antibiotics, currently on Zosyn and vancomycin. 2. Monitor hemoglobin and hematocrit. 3. Vasopressors as needed. 4. Tube feeding as tolerated. 5. Deep venous thrombosis and gastrointestinal prophylaxis. Dictated By: ROLANDO NOLAND/JENNIFER Conf#: [id number] DID#: [id number]
--- NOTE | 2016-09-18 17:10 | CONS ---
DATE OF ADMISSION: 09/16/2016 DATE OF CONSULTATION: 09/18/2016 TYPE OF CONSULTATION: Infectious Disease. REASON FOR CONSULTATION: Antibiotic management. HISTORY OF PRESENT ILLNESS: Aaron Flores is a 31-year-old male with numerous problem s who comes in with altered levels of consciousness. His problems include: 1. Quadriplegia secondary to cervical injury. 2. Ventilator-dependent respiratory failure, status post tracheostomy. 3. Dysphagia, status post G-tube placement. 4. Chronic encephalopathy. 5. History of healthcare-associated pneumonia. 6. Anemia of chronic disease. 7. Sacral decubitus ulcer. The patient had a quadriplegic secondary to spinal cord injury at C1-2 and 3. He has had a sudden c hange in his mental status according to his long term facility, and on admission, his temperat ure was 107.3, then down to 101.8. He was hospitalized under the diagnosis of healthcare-associated pneumonia in 2014. On admission on the , his white count was 20.5, hemoglobin of 7.1, platelet count 241,000, BUN and creatinine 83/2.21. Urinalysis showed greater than 200 white cells per high- power field, 3+ leukocyte esterase. Chest x-ray shows atherosclerotic calcification of the thoracic aorta, left lung base airspace with small pleural effusion. PAST MEDICAL HISTORY: Operations as outlined. FAMILY HISTORY: Noncontributory. SOCIAL HISTORY: He does not smoke, drink or abuse drugs. ALLERGIES: NONE TO PENICILLIN, SULFA OR FOODS. MEDICATIONS: Per chart. REVIEW OF SYSTEMS: As per HPI. PHYSICAL EXAMINATION: GENERAL: The patient is a chronically ill-appearing white male who is awake, but noncommunicative, in no acute distress. VITAL SIGNS: Stable. His T-max is 100.6, but today his T-current is 98.2/97.4. SKIN: Without generalized rash. He has a trach, PEG, Grant. HEENT: Within normal limits. NECK: Supple. LYMPH NODES: None palpable. CHEST: Decreased breath sounds at the bases. HEART: Without murmur or gallop. ABDOMEN: Soft, nontender, without organosplenomegaly or masses. EXTREMITIES: Without cyanosis, clubbing, or edema. RECTAL AND GENITAL: Deferred. NEUROLOGIC: The patient is cephalopathic, does not follow commands, moves all extremities. IMAGING: Chest x-ray shows left lung atelectasis versus airspace disease versus small left pleural effusion, right lung is clear. Brain CT: No acute intracranial abnormality identified. MICROBIOLOGY: Blood cultures are negative. Clostridium difficile assay is negative. Urine culture greater than 10 to the 5th gram-negative rods. IMPRESSION AND PLAN: The patient was started on vancomycin and Zosyn. We will continue him on this regimen until we get the results of the cultures. It seems that he has severe sepsis secondary to urinary tract infection. I will dictate my findings to Dr. Montano, Dr. Last Lares, the hospita list. Dictated By: ELINOR LOPEZ MD, JD/JENNIFER Conf#: [id number] DID#: [id number]
[2016-09-18] MEDS: DOCUSATE SODIUM 100 MG CAP PO SCH (20:09)
[2016-09-18] MEDS: BISACODYL 10 MG SUPP PR SCH (22:37)
[2016-09-18] MEDS: MAGNESIUM HYDROXIDE 30ML CUP PO SCH (22:37)
[2016-09-19] VITALS (22 sets, daily range): BP systolic 90–134; BP diastolic 67–104; PULSE 41–98; RESP 14–16
[2016-09-19] MEDS: PANTOPRAZOLE 40 MG INJ IV SCH (05:32)
[2016-09-19] MEDS: PIPER-TAZO 3.375 GM IV (PMX) 100 ML IVPB SCH ×2 (05:32→12:41)
[2016-09-19 06:07] LABS: BASOPHILS % 0.2 % (0.0-2.0); EOSINOPHILS # 0.1 10^3/ul (0.0-0.5); EOSINOPHILS % 1.1 % (0.0-7.0); HEMATOCRIT 25.7 % (42.0-52.0); HEMOGLOBIN 8.3 g/dl (14.0-18.0); LYMPHOCYTES # 1.2 10^3/ul (0.8-2.9); LYMPHOCYTES % 11.5 % (15.0-51.0); MEAN CORPUSCULAR HEMOGLOBIN 27.5 pg (29.0-33.0); MEAN CORPUSCULAR HGB CONC 32.4 g/dl (32.0-37.0); MEAN CORPUSCULAR VOLUME 84.9 fl (82.0-101.0); MEAN PLATELET VOLUME 10.2 fl (7.4-10.4); MONOCYTE # 0.4 10^3/ul (0.3-0.9); MONOCYTES % 4.1 % (0.0-11.0); NEUTROPHIL # 8.5 10^3/ul (1.6-7.5); NEUTROPHILS % 83.1 % (39.0-77.0); PLATELET COUNT 101 10^3/UL (140-440); RED BLOOD COUNT 3.03 10^6/ul (4.70-6.10); RED CELL DISTRIBUTION WIDTH 15.6 % (11.5-14.5); UNCORRECTED WBC 10.2 10^3/ul (4.8-10.8); WHITE BLOOD COUNT 10.2 10^3/ul (4.8-10.8)
[2016-09-19 06:27] LABS: CONDITION 1; LH ANALYZER COMMENTS 1
[2016-09-19 06:28] LABS: POTASSIUM 4.1 mmol/L (3.5-5.1)
[2016-09-19 06:31] LABS: CALCIUM 8.5 mg/dl (8.4-10.2); CREATININE 0.7 mg/dl (0.61-1.24)
[2016-09-19 08:25] LABS: AADO2 Arterial 101.5 mmHg (7.0-24.0); Allen Test ACCEPTAB; Arterial Base Excess -2.6 mmol/L (-3.0-3); Arterial COHb 0.3 % (0.0-3.0); Arterial Fraction of Oxyhgb 98.3 % (93.0-99.0); Arterial MetHb 0 % (0.0-1.5); Arterial Total Hemglobin 11.8 g/dl (12.0-18.0); Blood Gas Low PEEP Setting 0 cmH2O; MODE VENT - AC
[2016-09-19] MEDS: ZINC SULFATE 220 MG CAP PO SCH (09:00)
[2016-09-19] MEDS: FERROUS SULFATE (EC) 325 MG TAB PO SCH (09:00)
[2016-09-19] MEDS: MULTIVITAMINS THERAPEUTIC TAB PO SCH (09:00)
[2016-09-19] MEDS: ASCORBIC ACID 500 MG TAB PO SCH (09:00)
[2016-09-19] MEDS: VENLAFAXINE 25 MG TAB PO SCH (09:00)
[2016-09-19] MEDS: ENOXAPARIN 40 MG/0.4 ML SYG SC SCH (09:03)
[2016-09-19] MEDS: BUDESONIDE (NEB) 0.5MG/2ML AMP INH SCH (09:15)
[2016-09-19] MEDS: D5W-0.45 NACL + KCL 20 MEQ 1,000 ML IV SCH (09:53)
--- NOTE | 2016-09-19 10:12 | PDOCDIS ---
Discharge Instructions CONDITION Patient Condition: Fair HOME CARE INSTRUCTIONS: Diet Instructions: ACTIVITY: Activity Restrictions: No Weight Bearing DEBORAH CHEN MD Sep 19, 2016 10:12
[2016-09-19] MEDS ORDERED: PIPE3.374 IVPB (10:14)
[2016-09-19] MEDS ORDERED: LEVO500T72 PO (10:14)
--- NOTE | 2016-09-19 10:34 | RADRPT ---
PROCEDURE: XR Chest. CLINICAL INDICATION: pain TECHNIQUE: Single portable view of the chest was obtained COMPARISON: 09/16/2016 FINDINGS: There is decreased left lower lobe infiltrate and left pleural effusion. The heart is normal in siz e. There is a tracheostomy tube in place. There is no pleural effusion or pneumothorax.. The heart , lungs and mediastinum are otherwise unchanged. . RPTAT: AA IMPRESSION: Decreased left lower lobe infiltrate and left pleural effusion. No other significant change. .Rafal Damon MD, MD Date Time Electronically viewed and signed by .Rafal Damon MD, on 09/19/2016 10:34 .S/
--- NOTE | 2016-09-19 11:07 | CONS ---
Date/Time of Note Date/Time of Note DATE: 09/19/16 TIME: 11:06 Consult Date/Type/Reason Admit Date/Time Sep 16, 2016 at 22:45 Initial Consult Date Type of Consultation: pulmonary Subjective Patient remains stable awake alert Appears to have mild discomfort Attempting to talk Objective Vital Signs Date Time Temp Pulse Resp B/P Pulse Ox O2 Delivery O2 Flow Rate FiO2 09/19/16 09:17 55 16 100 30 09/19/16 09:00 123/93 09/19/16 08:00 97.4 Mechanical Ventilator Intake and Output 09/18/16 09/18/16 09/19/16 15:00 23:00 07:00 Intake Total 1093.25 ml 441.22 ml 260 ml Output Total 465 ml 405 ml 675 ml Balance 628.25 ml 36.22 ml -415 ml PHYSICAL EXAMINATION: GENERAL: Chronically ill appearing gentleman, appears comfortable at rest, no acute distress. VITAL SIGNS: NECK: Supple. No JVD or lymphadenopathy. CARDIAC: S1, S2, no added sounds or murmurs. CHEST: Diminished air entry bilaterally. ABDOMEN: Soft, nontender. No guarding or rebound. EXTREMITIES: No cyanosis, clubbing, edema. NEUROLOGIC: Generalized weakness. Results/Medications Result Diagram: 09/19/16 0450 09/19/16 0450 Results 24 hrs Laboratory Tests Test 09/18/16 14:00 09/19/16 04:50 09/19/16 07:00 Arterial Blood HCO3 24.8 22.0 Arterial Blood Base Excess -2.0 -2.6 Arterial Blood Oxygen Saturation 96.8 98.6 H Farhan Test ACCEPTAB ACCEPTAB Arterial Blood Gas Puncture Site Right Radial Right Radial Arterial Blood Carboxyhemoglobin 0.3 0.3 Arterial Blood Date Drawn 09/18/2016 2:30:11 PM 09/19/2016 7:30:13 AM Arterial Blood Methemoglobin 0 0 Arterial Blood pCO2 (Temp correct) 52.1 H 37.1 Arterial Blood pH (Temp corrected) 7.296 *L 7.390 Arterial Blood pO2 (Temp corrected) 93.2 141.0 H Blood Gas A-a O2 Differential 204.7 H 101.5 H Blood Gas Actual Respiration Rate 14 17 Blood Gas Critical Value Read Back K FARLESS RN Blood Gas Low PEEP Setting 0 0 Blood Gas Modality VENT - AC VENT - AC Blood Gas Notified Time 09/18/2016 2:55:28 PM 09/19/2016 8:24:55 AM Blood Gas Notified Whom JLD JLD Blood Gas Respiration Rate 14.0 16.0 Blood Gas Specimen Source Blood arterial Blood arterial Blood Gas Temperature 37.0 37.0 Blood Gas Tidal Volume 450.0 500.0 FiO2 50.0 40.0 Oxyhemoglobin Percent 96.5 98.3 Total Hemoglobin 10.6 L 11.8 L Anion Gap 12 Basophils # 0.0 Basophils % 0.2 Blood Morphology Comment Blood Urea Nitrogen 19 # Calcium Level 8.5 Carbon Dioxide Level 26 Chloride Level 109 Creatinine 0.70 Eosinophils # 0.1 Eosinophils % 1.1 Glucose Level 357 H Hematocrit 25.7 L Hemoglobin 8.3 L Lymphocytes # 1.2 Lymphocytes % 11.5 L Mean Corpuscular Hemoglobin 27.5 L Mean Corpuscular Hemoglobin Concent 32.4 Mean Corpuscular Volume 84.9 Mean Platelet Volume 10.2 Monocytes # 0.4 Monocytes % 4.1 Neutrophils # 8.5 H Neutrophils % 83.1 H Nucleated Red Blood Cells # 0.0 Nucleated Red Blood Cells % 0.0 Platelet Count 101 L Potassium Level 4.1 Red Blood Count 3.03 L Red Cell Distribution Width 15.6 H Sodium Level 143 White Blood Count 10.2 # Medications Current Medications Potassium Chloride/Dextrose/ Sod Cl (D5-1/2ns + KCl 20 Meq) 1,000 ml @ 100 mls/ hr Q10H IV Last administered on 09/19/16 09:53; Admin Dose 100 MLS/HR; Start 09/16/16 at 22:41 Ondansetron HCl (Zofran Inj) 4 mg Q6H PRN IV NAUSEA AND/OR VOMITING Last administered on 09/18/16 10:47; Admin Dose 4 MG; Start 09/16/16 at 23:00 Morphine Sulfate 2 mg 2 mg Q4H PRN IV SEVERE PAIN LEVEL 7-10; Start 09/16/16 at 23:00 Piperacillin Sod/ Tazobactam Sod (Zosyn 3.375gm/ 100 ml (Pmx)) 100 ml @ 200 mls /hr Q6 IVPB Last administered on 09/19/16 05:32; Admin Dose 200 MLS/HR; Start 09/17/16 at 00:00 Acetaminophen (Tylenol Liquid) 650 mg Q6H PRN PO PAIN LEVEL 1-3 OR FEVER Last administered on 09/17/16 14:44; Admin Dose 650 MG; Start 09/16/16 at 23:00 Ascorbic Acid (Vitamin C) 500 mg DAILY PO Last administered on 09/19/16 09:00 ; Admin Dose 500 MG; Start 09/17/16 at 09:00 Bisacodyl (Dulcolax Supp) 10 mg Q24H DC Last administered on 09/18/16 22:37; Admin Dose 10 MG; Start 09/16/16 at 23:00 Docusate Sodium (Colace) 100 mg QHS PO ; Start 09/17/16 at 21:00 Enoxaparin Sodium (Lovenox) 40 mg DAILY SC Last administered on 09/19/16 09:03 ; Admin Dose 40 MG; Start 09/17/16 at 09:00 Ferrous Sulfate (Ferrous Sulfate (Ec)) 325 mg DAILY PO Last administered on 09:00; Admin Dose 325 MG; Start 09/17/16 at 09:00 Magnesium Hydroxide (Milk Of Mag) 30 ml Q24H PO Last administered on 09/18/16 22:37; Admin Dose 30 ML; Start 09/16/16 at 23:00 Multivitamins Therapeutic (Theragran) 1 tab DAILY PO Last administered on 09:00; Admin Dose 1 TAB; Start 09/17/16 at 09:00 Simethicone (Mylicon) 80 mg DAILY PRN PO DISTENSION/GAS/BLOATING; Start at 23:00 Venlafaxine HCl (Effexor) 25 mg DAILY PO Last administered on 09/19/16 09:00; Admin Dose 25 MG; Start 09/17/16 at 09:00 Zinc Sulfate (Zinc Sulfate) 220 mg DAILY PO Last administered on 09/19/16 09: 00; Admin Dose 220 MG; Start 09/17/16 at 09:00 Pantoprazole 40 mg 40 mg DAILY@06 IV Last administered on 09/19/16 05:32; Admin Dose 40 MG; Start 09/17/16 at 06:00 Norepinephrine 250 ml @ 1.875 mls/ hr TITRATE IV Last administered on 00:29; Admin Dose 7.5 MLS/HR; Start 09/18/16 at 00:00 Norepinephrine 16 mg/Dextrose 500 ml @ 1.87 mls/hr TITRATE IV ; Start 09/17/16 at 23:45 Vancomycin HCl/ Sodium Chloride (Vancocin/NS) 150 ml @ 75 mls/hr Q12H IVPB Last administered on 09/18/16t 22:36; Admin Dose 75 MLS/HR; Start 09/18/16 at 11: 00 Assessment/Plan Chief Complaint/Hosp Course IMPRESSION AND PLAN: 1. Gram-negative urinary tract infection with septic shock. Improved hemodynamics 2. Vent dependent respiratory failure. 3. Chronic encephalopathy. 4. History of C-spine disease with quadriplegia. 5. Dysphagia with G-tube. 6. Chronic anemia PLAN: The patient will require: 1. Continue broad-spectrum antibiotics, currently on Zosyn and vancomycin. 2. Monitor hemoglobin and hematocrit. Consider transfusion 1 unit packed red blood cells prior to discharge 3. Free water per G-tube 4. Tube feeding as tolerated. 5. Deep venous thrombosis and gastrointestinal prophylaxis. Agree with discharge planning Problems: ROLANDO COLIN MD, [facility] Sep 19, 2016 11:07
[2016-09-19] MEDS: VANCOMYCIN 750 MG in SOD CHLORIDE 0.9% 150 ML IVPB SCH (11:11)
--- NOTE | 2016-09-19 13:26 | PN ---
DATE: 09/19/2016 SUBJECTIVE: No changes overnight. The patient is off pressors, awake, in no distress. No fevers. WBC today 10.2, platelets 101, neutrophils 83.1, BUN 19, creatinine 0.70. MICROBIOLOGY: Blood cultures remain negative. Stool for C. diff negative. Urine culture growing g kiko-negative rods. INDWELLINGS: Trach, PEG, Grant, right femoral triple-lumen catheter. ANTIMICROBIALS: 1. Vancomycin. 2. Zosyn. DIAGNOSTICS: Chest x-ray this morning revealed decreased left lower lobe infiltrate and left pleura l effusions. PHYSICAL EXAMINATION: GENERAL: This is a chronically ill-appearing, middle-aged man who is in no distress. HEENT: Head atraumatic, normocephalic. Sclerae anicteric. Buccal mucosa dry. NECK: Supple. Tracheostomy present. CHEST: Rise symmetrical. Breath sounds diminished to bases. HEART: S1, S2. ABDOMEN: Soft. Bowel tones hypoactive. EXTREMITIES: Contractured, wasted with multiple chronic wounds, pressure sores. ASSESSMENT: 1. Sepsis status post shock, improving. 2. Urinary tract infection. 3. Healthcare-associated pneumonia. 4. Multiple pressure sores and chronic decubitus. 5. Chronic encephalopathy. 6. History of cervical spine injury with resulting quadriplegia. PLAN: The patient remains stable, currently off pressors. No fevers. Final cultures are pending. His white blood cell count decreased to normal. We will continue him on current regimen and await f or final cultures. Dictated By: SERENA SANTIAGO FUNCTIONAL TESTER TYPEWRITERS for ELINOR KINSEY/JENNIFER Conf#: [id number] DID#: [id number]
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
== END 2016-09-19 17:50 | DRG 871 ==
LOC: E/R 18:04 → TEL 22:45 → ICU 09-17 22:50
PROVIDERS: ADMIT Internal Medicine; ATTEND Internal Medicine
PROC: 5A1945Z Respiratory Ventilation, 24-96 Consecutive Hours (ICD-10-PCS; principal; 2016-09-16)
DX: A41.50 Gram-negative sepsis, unspecified (principal); R65.21 Severe sepsis with septic shock; G93.49 Other encephalopathy; G82.50 Quadriplegia, unspecified; L89.214 Pressure ulcer of right hip, stage 4; Z99.11 Dependence on respirator [ventilator] status; D69.6 Thrombocytopenia, unspecified; N17.9 Acute kidney failure, unspecified; N39.0 Urinary tract infection, site not specified; L89.222 Pressure ulcer of left hip, stage 2; Z93.0 Tracheostomy status; Z93.1 Gastrostomy status; R13.10 Dysphagia, unspecified; D64.9 Anemia, unspecified; E16.2 Hypoglycemia, unspecified; L89.512 Pressure ulcer of right ankle, stage 2
CPT/HCPCS: 36415; 36600; 70450; 71010; 76937; 80048; 80053; 81001; 81003; 82150; 82803; 82962; 83036; 83605; 83690; 83735; 84100; 84484; 85025; 85610; 85730; 86850; 86900; 86901; 86920; 87040; 87045; 87075; 87081; 87086; 93005; 94002; 94003; 94640; 94664; 94799; 96372; 96374; 96375; 96376; C1751; C9113; J1650; J2405; J2543; J3370; J3480; J7030

== ENCOUNTER 2018-03-23 21:34 | Inpatient (IN) | END 2018-03-30 20:08 | DRG 870 ==

== ENCOUNTER 2018-10-18 19:49 | Inpatient (IN) | payer OTHER ==
[~2018-10-18] VITALS: Ht 177.8 cm; Wt 69.0 kg
[~2018-10-18 19:49] MED LIST changes: +ACET325T33 GTB; -ALBU2.5V36 NEB; -ASCO500C7 PO; +ASPI-817 GTB; +BALS60OI TOP; -BUDE0.5A IH; +BUDE0.5A INHALATION; -CEFE1FRO IV; +CHLO473M7 MM; -CRAN425C PO; +CRAN425C6 GTB; +DOCU-144 GTB; -DOCU-159 PO; -DULR PR; +ENOX30DI10 SQ; -FER325 PO; +FERR220S13 PO; +LACT1CAP72 GTB; -LOV40I SC; -MAGN400O4 PO; +MIDO10TA GTB; -MULT-552 PO; +MULTI GTB; +OMEP20CA16 GTB; -OMEP20CA16 PO; +SAN30GM TOP; -SIME80TA PO; +TRAM50TA GTB; -UDTYL PO; -VENL25TA PO; -Vancomycin Hcl XX; -ZINC220C5 PO
[2018-10-18] MEDS ORDERED: CEFEPIME 2GM/50 ML (PMX) 50 ML IVPB STA (19:50)
[2018-10-18] MEDS ORDERED: SODIUM CHLORIDE 0.9% 1L BAG IV* STA (19:50)
[2018-10-18] MEDS ORDERED: VANCOMYCIN 1 GM (PMX) 250 ML IVPB ONE (20:00)
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
[2018-10-18] MEDS ORDERED: ACETAMINOPHEN 325 MG TAB PO ONE (20:30)
[2018-10-18] MEDS ORDERED: ACID1CAP GTB (21:07)
[2018-10-18] MEDS ORDERED: ASPI-903 GTB (21:08)
[2018-10-18] MEDS ORDERED: CHLO473M2 MM (21:10)
[2018-10-18] MEDS ORDERED: DOCU-144 GTB (21:11)
[2018-10-18] MEDS ORDERED: CRAN425C6 GTB (21:12)
[2018-10-18] MEDS ORDERED: FERR220S13 GTB (21:13)
[2018-10-18] MEDS ORDERED: ENOX30DI10 SQ (21:14)
[2018-10-18] MEDS ORDERED: MIDO10TA GTB (21:15)
[2018-10-18] MEDS ORDERED: MULTI GTB (21:16)
[2018-10-18] MEDS ORDERED: OMEP20CA16 GTB (21:18)
[2018-10-18] MEDS ORDERED: BUDE0.5A INHALATION (21:18)
[2018-10-18] MEDS ORDERED: ACET325T33 GTB ×2 (21:21)
[2018-10-18] MEDS ORDERED: TYL500 GTB (21:22)
[2018-10-18] MEDS ORDERED: TRAM50TA2 GTB (21:23)
[2018-10-18] MEDS ORDERED: VIT500LI GTB (21:25)
[2018-10-18] MEDS ORDERED: VANCOMYCIN IV PER PHARMACY XX SCH (21:30)
[2018-10-18] MEDS ORDERED: ACETAMINOPHEN 325 MG TAB PO PRN (21:30)
[2018-10-18] MEDS ORDERED: NACL 0.9% 3 ML SYG IV SCH (21:30)
[2018-10-18] MEDS ORDERED: ONDANSETRON 4 MG INJ IV PRN ×2 (21:30)
[2018-10-18 22:22] VITALS: RESP 18
[2018-10-18] MEDS ORDERED: IPRA3AMP29 INHALATION (22:25)
[2018-10-18 22:34] VITALS: PULSE 95
[2018-10-18 23:32] VITALS: Ht 177.8 cm; Wt 69.0 kg
[2018-10-18 23:48] VITALS: RESP 18
[2018-10-18 23:50] VITALS: BP 96/55; PULSE 78; RESP 18
[2018-10-19] VITALS (24 sets, daily range): BP systolic 95–115; BP diastolic 51–77; PULSE 51–105; RESP 16–19
[2018-10-19] MEDS: SOD CHLORIDE 0.9% 1,000 ML IV SCH ×3 (00:23→17:31)
[2018-10-19] MEDS: ACETAMINOPHEN 325 MG TAB PO PRN (05:27)
[2018-10-19] MEDS ORDERED: VANCOMYCIN 750 MG (PMX) 250 ML IVPB SCH (09:00)
[2018-10-19] MEDS: FAMOTIDINE 20 MG INJ IV SCH ×2 (09:05→21:43)
[2018-10-19] MEDS: CEFEPIME 1GM/50 ML (PMX) 50 ML IVPB SCH ×2 (09:05→21:44)
[2018-10-19] MEDS: ENOXAPARIN 30 MG/0.3 ML SYG SC SCH (09:07)
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
[2018-10-19] MEDS: morphine 2 MG INJ IV PRN ×2 (13:19→17:29)
[2018-10-19] MEDS: VANCOMYCIN 750 MG (PMX) 250 ML IVPB SCH (23:42)
[2018-10-20] VITALS (24 sets, daily range): BP systolic 93–118; BP diastolic 52–68; PULSE 44–82; RESP 18–23
[2018-10-20] MEDS: morphine 2 MG INJ IV PRN ×2 (04:28→17:21)
[2018-10-20] MEDS: SOD CHLORIDE 0.9% 1,000 ML IV SCH ×2 (06:39→12:11)
[2018-10-20] MEDS: CEFEPIME 1GM/50 ML (PMX) 50 ML IVPB SCH ×2 (08:21→21:07)
[2018-10-20] MEDS: FAMOTIDINE 20 MG INJ IV SCH ×2 (08:21→21:06)
[2018-10-20] MEDS: ENOXAPARIN 30 MG/0.3 ML SYG SC SCH (08:23)
[2018-10-20] MEDS: VANCOMYCIN 750 MG (PMX) 250 ML IVPB SCH ×2 (10:53→23:46)
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
[2018-10-21] VITALS (29 sets, daily range): BP systolic 95–122; BP diastolic 55–75; PULSE 26–67; RESP 18–23
[2018-10-21] MEDS: morphine 2 MG INJ IV PRN ×3 (02:44→22:05)
[2018-10-21] MEDS: SOD CHLORIDE 0.9% 1,000 ML IV SCH ×2 (09:08→21:57)
[2018-10-21] MEDS: CEFEPIME 1GM/50 ML (PMX) 50 ML IVPB SCH ×2 (09:08→21:57)
[2018-10-21] MEDS: FAMOTIDINE 20 MG INJ IV SCH (09:08)
[2018-10-21] MEDS: ENOXAPARIN 30 MG/0.3 ML SYG SC SCH (09:28)
[2018-10-21] MEDS: VANCOMYCIN 750 MG (PMX) 250 ML IVPB SCH ×2 (11:47→22:04)
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
[2018-10-21] MEDS: FAMOTIDINE 20 MG TAB PO SCH (21:00)
[2018-10-22] VITALS (25 sets, daily range): BP systolic 89–132; BP diastolic 51–85; PULSE 39–98; RESP 18–62
[2018-10-22] MEDS: morphine LIQ (10 MG/5 ML) CUP PO PRN ×3 (05:38→15:03)
[2018-10-22] MEDS: SOD CHLORIDE 0.9% 1,000 ML IV SCH (08:39)
[2018-10-22] MEDS: CEFEPIME 1GM/50 ML (PMX) 50 ML IVPB SCH ×2 (09:15→21:38)
[2018-10-22] MEDS: FAMOTIDINE 20 MG TAB PO SCH ×2 (09:15→21:00)
[2018-10-22] MEDS: ENOXAPARIN 30 MG/0.3 ML SYG SC SCH (09:30)
[2018-10-22] MEDS: VANCOMYCIN 750 MG (PMX) 250 ML IVPB SCH ×2 (11:15→23:00)
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
[2018-10-22] MEDS: traMADol 50 MG TAB PO PRN (17:51)
[2018-10-22] MEDS: DEXTROSE 5%-0.9% NACL 1,000 ML IV SCH (18:49)
[2018-10-23] VITALS (23 sets, daily range): BP systolic 85–119; BP diastolic 53–70; PULSE 55–90; RESP 18–20
[2018-10-23] MEDS: DEXTROSE 5%-0.9% NACL 1,000 ML IV SCH ×2 (08:43→21:10)
[2018-10-23] MEDS: CEFEPIME 1GM/50 ML (PMX) 50 ML IVPB SCH ×2 (08:44→20:26)
[2018-10-23] MEDS: FAMOTIDINE 20 MG TAB PO SCH ×2 (08:44→20:25)
[2018-10-23] MEDS: ENOXAPARIN 30 MG/0.3 ML SYG SC SCH (08:48)
[2018-10-23] MEDS: morphine LIQ (10 MG/5 ML) CUP PO PRN (08:53)
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
[2018-10-23] MEDS: VANCOMYCIN 750 MG (PMX) 250 ML IVPB SCH ×2 (12:25→23:10)
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
[2018-10-23] MEDS ORDERED: SOD CHLORIDE 0.9% 500 ML IV ONE (14:00)
[2018-10-23] MEDS: ACETAMINOPHEN 325 MG TAB PO PRN (16:56)
--- NOTE | 2018-10-23 18:12 | RADRPT ---
Echocardiogram Report Patient Name: CIARA PRAKASHEPatient ID: [id number] : 1985 (33y 1m)Study Date: 10/23/2018 9:11:43 AM Gender: MAccession #: [id number] Tech: Aashish Ignacio [facility] Location: [facility] Ref.Physician: ADAM CLEMENS Height(Cm): BSA: Weight(Kg): Quality: GoodAccount #: Procedures: Echocardiographic Report: Transthoracic echocardiogram with complete 2D, M-Mode, and doppler examination. Indications: Cardiac pauses. Measurements: 2D/M Mode Doppler Measurement Value Normal Range Measurement Value Normal Range LVIDd 2D 4.5 [ 4.2 - 5.8 ] cm AV Peak Donavon 1.0 [ 100.0 - 170.0 ] cm/sec LVIDs 2D 2.9 [ 2.5 - 4.0 ] cm AV Peak PG 4.0 [ 2.0 - 9.0 ] mmHg LVPWd 2D 1.1 [ 0.6 - 1.0 ] cm LVOT Peak Donavon 0.9 [ 70.0 - 110.0 ] cm/sec IVSd 2D 0.9 [ 0.6 - 1.0 ] cm LVOT Peak PG 3.0 [ 2.0 - 6.0 ] mmHg IVS/LVPW 2D 0.9 ratio MV E Peak Donavon 1.0 [ 60.0 - 130.0 ] cm/sec AoR Diam 2D 2.9 [ 2.6 - 3.4 ] cm MV A Peak Donavon 0.7 [ 100.0 - 120.0 ] cm/sec LA/Ao 2D 1 ratio MV E/A 1.4 [ 0.8 - 1.5 ] ratio LA Dimen 2D 2.8 [ 3.0 - 4.0 ] cm MV Decel Time 208 [ 104 - 258 ] msec Lat E` Donavon 0.1 [ 10.0 - 15.0 ] cm/sec MV E/A 1.4 [ 0.8 - 1.5 ] ratio TR Peak Donavon 2.7 [ 100.0 - 280.0 ] cm/sec TR Peak PG 30.0 mmHg RVSP 33.0 [ 10.0 - 36.0 ] mmHg RA Pressure 3.0 mmHg Findings: Left Ventricle: Normal left ventricular systolic function. Normal left ventricular cavity size. Mild concentric left ventricular hypertrophy. Ejection fraction is visually estimated at 55 %. Right Ventricle: Normal right ventricular size. Normal right ventricular systolic function. Left Atrium: The left atrium is normal in size. Right Atrium: The right atrium is normal in size. Mitral Valve: Normal appearance and function of the mitral valve with trace physiologic regurgitation. Aortic Valve: Normal appearance of the aortic valve. No significant aortic stenosis or insufficiency. Tricuspid Valve: Normal appearance of the tricuspid valve. Estimated peak PA systolic pressure 33 mmHg. There is trace tricuspid regurgitation. Pulmonic Valve: Normal pulmonic valve appearance. Pericardium: Normal pericardium with no significant pericardial effusion. Aorta: Normal aortic root. IVC: Normal size and normal respiratory collapse consistent with normal right atrial pressure. Conclusions: Normal left ventricular systolic function. Normal left ventricular cavity size. Mild concentric left ventricular hypertrophy. Ejection fraction is visually estimated at 55 %. Normal appearance and function of the mitral valve with trace physiologic regurgitation. Normal appearance of the tricuspid valve. Estimated peak PA systolic pressure 33 mmHg. There is trace tricuspid regurgitation. Electronically Signed By: Amish Carnes 2018-10-23 18:11:44 PST
[2018-10-24] VITALS (23 sets, daily range): BP systolic 81–116; BP diastolic 51–72; PULSE 53–94; RESP 15–27
[2018-10-24] MEDS: ACETAMINOPHEN 325 MG TAB PO PRN ×2 (05:23→17:24)
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
[2018-10-24] MEDS: FAMOTIDINE 20 MG TAB PO SCH ×2 (09:21→20:32)
[2018-10-24] MEDS: CEFEPIME 1GM/50 ML (PMX) 50 ML IVPB SCH ×2 (09:21→20:32)
[2018-10-24] MEDS: ENOXAPARIN 30 MG/0.3 ML SYG SC SCH (09:45)
[2018-10-24] MEDS: DEXTROSE 5%-0.9% NACL 1,000 ML IV SCH ×2 (09:51→23:50)
[2018-10-24] MEDS: VANCOMYCIN 750 MG (PMX) 250 ML IVPB SCH (11:25)
[2018-10-24] MEDS: morphine LIQ (10 MG/5 ML) CUP PO PRN ×2 (11:33→22:03)
--- NOTE | 2018-10-24 11:39 | CONS ---
Assessment/Plan Assessment/Plan Hospital Course (Demo Recall) IMPRESSION: 1. Cardiac pause x approximately 5 seconds in the setting of a vented patient with no signs of significant conduction system disease by EKG. Likely primary pulmonary event with possible mucus plugging congestion of the patient's tracheostomy or sleep apnea. Continue to follow.- no receurrnce by tele in last 24 hours. NL EF by echo EF 55. Neg trop x 3. NL TSH 2. Abnormal electrocardiogram, borderline anterior R-wave progression status post acute coronary syndrome, unlikely. 3. Chronic respiratory failure, status post trach. 4. Dysphagia, status post G-tube. 5. Chronic encephalopathy. 6. Left hemithorax whiteout; question mucous plugging, collapse. 7. Anemia. 8. Thrombocytosis. Recc: -Tele -Follow for recurrent significant pause -Contineu abx's and f/u cx data Consultation Date/Type/Reason Admit Date/Time Oct 18, 2018 at 21:17 Initial Consult Date 10/23/18 Type of Consult Cardiology Reason for Consultation Pause Requesting Provider: ADAM CLEMENS MD Date/Time of Note DATE: 10/24/18 TIME: 11:36 Exam/Review of Systems Vital Signs Vitals Vital Signs Date Temp Pulse Resp B/P (MAP) Pulse Ox O2 O2 Flow FiO2 Time Delivery Rate 10/24/18 98.2 64 21 102/66 97 Mechanical 11:08 (78) Ventilator 10/24/18 30 09:15 Intake and Output 10/23/18 10/23/18 10/24/18 1515:00 23:00 07:00 IntakeIntake Total 800 ml 950 ml OutputOutput Total 600 ml BalanceBalance 800 ml 350 ml Exam Exam Review of Systems: CONSTITUTIONAL: No fevers, chills. PULMONARY: No sob CARDIOVASCULAR: No chest pain/palpitations GASTROINTESTINAL: No nausea/vomiting. GENITOURINARY: No hematuria/dysuria. MUSCULOSKELETAL: No myagias/arthalgias. PSYCHIATRIC: The patient denies depression. NEUROLOGIC: No weakness Constitutional: alert Psych: no complaints Head: normocephalic ENMT: mucosa pink and moist Neck: supple, jvd (9 cm water) Respiratory: diminished breath sounds (at bases/B) Cardiovascular: regular rate and rhythm Gastrointestinal: soft, non-tender Musculoskeletal: muscle weakness Extremities: other (contracted) Neurological: other (No focal deficits) Labs Result Diagram: 10/24/1828 10/24/18527 Results 24hrs Laboratory Tests Test 10/23/18 12:01 10/23/18 18:17 10/23/18 22:02 10/24/18 00:37 Sodium Level 140 Potassium Level 3.7 Chloride Level 108 Carbon Dioxide Level 22 Anion Gap 10 Blood Urea Nitrogen 12 Creatinine 0.62 Est Glomerular > 60 Filtrat Rate mL/min Glucose Level 149 Calcium Level 9.5 Magnesium Level 1.8 Troponin I < 0.012 < 0.012 Vancomycin Level 18.3 Trough Test 10/24/18 05:28 White Blood Count 6.2 # Red Blood Count 3.73 L Hemoglobin 10.2 L Hematocrit 33.9 L Mean Corpuscular 90.9 Volume Mean Corpuscular 27.3 L Hemoglobin Mean Corpuscular 30.1 L Hemoglobin Concent Red Cell 14.9 H Distribution Width Platelet Count 403 Mean Platelet Volume 8.7 Immature 0.300 Granulocytes % Neutrophils % 54.5 Lymphocytes % 35.6 Monocytes % 7.7 Eosinophils % 1.3 Basophils % 0.6 Nucleated Red Blood 0.0 Cells % Immature 0.020 Granulocytes # Neutrophils # 3.4 Lymphocytes # 2.2 Monocytes # 0.5 Eosinophils # 0.1 Basophils # 0.0 Nucleated Red Blood 0.0 Cells # Sodium Level 141 Potassium Level 4.1 Chloride Level 107 Carbon Dioxide Level 23 Anion Gap 11 Blood Urea Nitrogen 12 Creatinine 0.64 Est Glomerular > 60 Filtrat Rate mL/min Glucose Level 97 # Calcium Level 9.7 Troponin I < 0.012 Thyroid Stimulating 1.690 Hormone (TSH) Medications Medications Current Medications IV Flush (NS 3 ml) 3 ml PER PROTOCOL IV ; Start 10/18/18 at 21:30 Ondansetron HCl (Zofran Inj) 4 mg Q6H PRN IV NAUSEA/VOMITING; Start 10/18/18 at 21:30 Acetaminophen (Tylenol Tab) 650 mg Q6H PRN PO .PAIN 1-3 OR TEMP Last administered on 10/24/18at 05:23; Admin Dose 650 MG; Start 10/18/18 at 21:30 Enoxaparin Sodium (Lovenox) 30 mg DAILY SC Last administered on 10/24/18at 09:45; Admin Dose 30 MG; Start 10/19/18 at 09:00 Cefepime HCl 50 ml @ 100 mls/hr Q12 IVPB Last administered on 10/24/18 09:21; Admin Dose 100 MLS/HR; Start 10/19/18 at 09:00 Vancomycin HCl (Vanco Iv Per Pharmacy) VANCOMYCIN PER PHARMACY PER PROTOCOL XX ; Start 10/18/18 at 21:30 Vancomycin/Sodium Chloride 250 ml @ 125 mls/hr Q12H IVPB Last administered on 10/23/18 23:10; Admin Dose 125 MLS/HR; Start 10/19/18 at 23:00 Famotidine (Pepcid) 20 mg Q12 PO Last administered on 10/24/18 09:21; Admin Dose 20 MG; Start 10/21/18 at 21:00 Morphine Sulfate (morphine) 6 mg Q4H PRN PO SEVERE PAIN LEVEL 7-10 Last administered on 10/23/18 08:53; Admin Dose 6 MG; Start 10/21/18 at 23:00 Tramadol HCl (Ultram) 50 mg Q6H PRN PO MODERATE PAIN LEVEL 4-6 Last administered on 10/22/18 17:51; Admin Dose 50 MG; Start 10/22/18 at 18:00 Dextrose/Sodium Chloride 1,000 ml @ 75 mls/hr [id number] IV Last administered on 10/24/18 09:51; Admin Dose 75 MLS/HR; Start 10/22/18 at 18:30 Midodrine (Proamatine) 5 mg Q8 PRN PO SBP<90; Start 10/23/18 at 14:30 NOE SAWYER Oct 24, 2018 11:39
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
[2018-10-24] MEDS ORDERED: SOD CHLORIDE 0.9% 500 ML IV ONE (20:30)
[2018-10-25] VITALS (22 sets, daily range): BP systolic 92–137; BP diastolic 50–78; PULSE 57–101; RESP 9–23
[2018-10-25] MEDS: VANCOMYCIN 750 MG (PMX) 250 ML IVPB SCH ×2 (00:56→12:07)
[2018-10-25] MEDS: FAMOTIDINE 20 MG TAB PO SCH ×2 (09:30→20:17)
[2018-10-25] MEDS: CEFEPIME 1GM/50 ML (PMX) 50 ML IVPB SCH ×2 (09:30→20:17)
[2018-10-25] MEDS: ENOXAPARIN 30 MG/0.3 ML SYG SC SCH (09:48)
[2018-10-25] MEDS: ACETAMINOPHEN 325 MG TAB PO PRN (09:49)
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
[2018-10-25] MEDS: DEXTROSE 5%-0.9% NACL 1,000 ML IV SCH ×2 (12:10→22:04)
--- NOTE | 2018-10-25 14:57 | CONS ---
Assessment/Plan Assessment/Plan Hospital Course (Demo Recall) IMPRESSION: 1. Cardiac pause x approximately 5 seconds in the setting of a vented patient with no signs of significant conduction system disease by EKG. Likely primary pulmonary event with possible mucus plugging congestion of the patient's tracheostomy or sleep apnea. Continue to follow.- no receurrnce by tele in last 24 hours. NL EF by echo EF 55. Neg trop x 3. NL TSH 2. Abnormal electrocardiogram, borderline anterior R-wave progression status post acute coronary syndrome, unlikely. 3. Chronic respiratory failure, status post trach. 4. Dysphagia, status post G-tube. 5. Chronic encephalopathy. 6. Left hemithorax whiteout; question mucous plugging, collapse. 7. Anemia. 8. Thrombocytosis. Recc: -Tele -Follow for recurrent significant pause -Contineu abx's and f/u cx data Consultation Date/Type/Reason Admit Date/Time Oct 18, 2018 at 21:17 Initial Consult Date 10/23/18 Type of Consult Cardiology Reason for Consultation Pause Requesting Provider: ADAM CLEMENS MD Date/Time of Note DATE: 10/25/18 TIME: 14:56 Exam/Review of Systems Vital Signs Vitals Vital Signs Date Temp Pulse Resp B/P (MAP) Pulse Ox O2 O2 Flow FiO2 Time Delivery Rate 10/25/18 59 12:14 10/25/18 18 95 30 11:23 10/25/18 98.0 127/69 Mechanical 11:21 (88) Ventilator Intake and Output 10/24/18 10/24/18 10/25/18 1414:59 22:59 06:59 IntakeIntake Total 0 ml 1750 ml 100 ml OutputOutput Total 800 ml 900 ml BalanceBalance -800 ml 850 ml 100 ml Exam Exam Review of Systems: CONSTITUTIONAL: No fevers, chills. PULMONARY: No sob CARDIOVASCULAR: No chest pain/palpitations GASTROINTESTINAL: No nausea/vomiting. GENITOURINARY: No hematuria/dysuria. MUSCULOSKELETAL: No myagias/arthalgias. PSYCHIATRIC: The patient denies depression. NEUROLOGIC: No weakness Constitutional: alert Head: normocephalic ENMT: mucosa pink and moist Neck: supple, jvd (9 cm water) Respiratory: diminished breath sounds (at bases/B) Cardiovascular: regular rate and rhythm Gastrointestinal: soft, non-tender Musculoskeletal: muscle tone (normal) Extremities: edema (none) Neurological: other (No focal deficits) Labs Result Diagram: 10/25/18 0552 10/25/18 0552 Results 24hrs Laboratory Tests Test 10/25/18 05:52 White Blood Count 7.8 # Red Blood Count 3.66 L Hemoglobin 10.1 L Hematocrit 33.5 L Mean Corpuscular Volume 91.5 Mean Corpuscular Hemoglobin 27.6 L Mean Corpuscular Hemoglobin Concent 30.1 L Red Cell Distribution Width 15.1 H Platelet Count 388 Mean Platelet Volume 8.8 Immature Granulocytes % 0.300 Neutrophils % 66.4 Lymphocytes % 24.4 Monocytes % 6.2 Eosinophils % 2.2 Basophils % 0.5 Nucleated Red Blood Cells % 0.0 Immature Granulocytes # 0.020 Neutrophils # 5.2 Lymphocytes # 1.9 Monocytes # 0.5 Eosinophils # 0.2 Basophils # 0.0 Nucleated Red Blood Cells # 0.0 Sodium Level 142 Potassium Level 3.8 Chloride Level 110 Carbon Dioxide Level 23 Anion Gap 9 Blood Urea Nitrogen 12 Creatinine 0.68 Est Glomerular Filtrat Rate mL/min > 60 Glucose Level 100 Calcium Level 9.8 Medications Medications Current Medications IV Flush (NS 3 ml) 3 ml PER PROTOCOL IV ; Start 10/18/18 at 21:30 Ondansetron HCl (Zofran Inj) 4 mg Q6H PRN IV NAUSEA/VOMITING; Start 10/18/18 at 21:30 Acetaminophen (Tylenol Tab) 650 mg Q6H PRN PO .PAIN 1-3 OR TEMP Last administered on 10/25/18at 09:49; Admin Dose 650 MG; Start 10/18/18 at 21:30 Enoxaparin Sodium (Lovenox) 30 mg DAILY SC Last administered on 10/25/18at 09:48; Admin Dose 30 MG; Start 10/19/18 at 09:00 Cefepime HCl 50 ml @ 100 mls/hr Q12 IVPB Last administered on 10/25/18 09:30; Admin Dose 100 MLS/HR; Start 10/19/18 at 09:00 Vancomycin HCl (Vanco Iv Per Pharmacy) VANCOMYCIN PER PHARMACY PER PROTOCOL XX ; Start 10/18/18 at 21:30 Famotidine (Pepcid) 20 mg Q12 PO Last administered on 10/25/18at 09:30; Admin Dose 20 MG; Start 10/21/18 at 21:00 Morphine Sulfate (morphine) 6 mg Q4H PRN PO SEVERE PAIN LEVEL 7-10 Last a dministered on 10/24/18at 22:03; Admin Dose 6 MG; Start 10/21/18 at 23:00 Tramadol HCl (Ultram) 50 mg Q6H PRN PO MODERATE PAIN LEVEL 4-6 Last administered on 10/22/18at 17:51; Admin Dose 50 MG; Start 10/22/18 at 18:00 Dextrose/Sodium Chloride 1,000 ml @ 75 mls/hr [id number] IV Last administered on 10/24/18at 23:50; Admin Dose 75 MLS/HR; Start 10/22/18 at 18:30 Midodrine (Proamatine) 5 mg Q8 PRN PO SBP<90; Start 10/23/18 at 14:30 Vancomycin HCl 100 ml @ 100 mls/hr Q12H IVPB ; Start 10/26/18 at 00:00 NOE SAWYER Oct 25, 2018 14:57
[2018-10-25] MEDS: morphine LIQ (10 MG/5 ML) CUP PO PRN ×2 (18:10→23:43)
[2018-10-25] MEDS: VANCOMYCIN 500 MG (PMX) 100 ML IVPB SCH (23:42)
[2018-10-26] VITALS (26 sets, daily range): BP systolic 102–124; BP diastolic 49–73; PULSE 32–88; RESP 18–24
[2018-10-26] MEDS: FAMOTIDINE 20 MG TAB PO SCH ×2 (09:56→20:41)
[2018-10-26] MEDS: CEFEPIME 1GM/50 ML (PMX) 50 ML IVPB SCH ×2 (09:56→20:41)
[2018-10-26] MEDS: ENOXAPARIN 30 MG/0.3 ML SYG SC SCH (10:01)
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
[2018-10-26] MEDS: VANCOMYCIN 500 MG (PMX) 100 ML IVPB SCH ×2 (12:07→23:28)
[2018-10-26] MEDS: DEXTROSE 5%-0.9% NACL 1,000 ML IV SCH (12:07)
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
--- NOTE | 2018-10-26 16:06 | CONS ---
Consult Date/Type/Reason Admit Date/Time Oct 18, 2018 at 21:17 Initial Consult Date Requesting Provider: ADAM CLEMENS MD Date/Time of Note DATE: 10/26/18 TIME: 16:06 Subjective VS reviewed - stable Objective Vitals Vital Signs Date Temp Pulse Resp B/P (MAP) Pulse Ox O2 O2 Flow FiO2 Time Delivery Rate 10/26/18 75 18 98 40 15:37 10/26/18 98.0 116/73 Mechanical 15:33 (87) Ventilator Intake and Output 10/25/18 10/25/18 10/26/18 1515:00 23:00 07:00 IntakeIntake Total 1850 ml 100 ml BalanceBalance 1850 ml 100 ml Results/Medications Result Diagram: 10/26/18 0500 10/26/18 0500 Results 24 hrs Laboratory Tests Test 10/26/18 05:00 White Blood Count 7.2 Red Blood Count 3.67 L Hemoglobin 10.2 L Hematocrit 34.4 L Mean Corpuscular Volume 93.7 Mean Corpuscular Hemoglobin 27.8 L Mean Corpuscular Hemoglobin Concent 29.7 L Red Cell Distribution Width 14.9 H Platelet Count 329 Mean Platelet Volume 9.6 Immature Granulocytes % 0.300 Neutrophils % 56.5 Lymphocytes % 31.7 Monocytes % 7.6 Eosinophils % 3.5 Basophils % 0.4 Nucleated Red Blood Cells % 0.0 Immature Granulocytes # 0.020 Neutrophils # 4.1 Lymphocytes # 2.3 Monocytes # 0.6 Eosinophils # 0.3 Basophils # 0.0 Nucleated Red Blood Cells # 0.0 Sodium Level 142 Potassium Level 4.2 Chloride Level 111 H Carbon Dioxide Level 19 L Anion Gap 12 Blood Urea Nitrogen 15 Creatinine 0.56 L Est Glomerular Filtrat Rate mL/min > 60 Glucose Level 90 Calcium Level 9.9 Home Meds Reported Medications Ipratropium-Albuterol (Ipratropium-Albuterol) 0.5-3 Mg/3 Ml Ampul.neb, 3 ML INHALATION Q6, #30 VIAL 10/18/18 Vit C-Ascorbate Ca-Ascorb Sod (Vitamin C) 500 Mg/15 Ml Liquid, 5 ML GTB DAILY, ML 10/18/18 Tramadol HCl (Tramadol HCl) 50 Mg Tablet, 50 MG GTB BID PRN for PAIN, #60 TAB 10/18/18 Acetaminophen* (Tylenol*) 500 Mg Tab, 1000 MG GTB Q4H PRN for PAIN 7-9/10, TAB 10/18/18 Acetaminophen* (Tylenol*) 325 Mg Tablet, 650 MG GTB NEEDED PRN for TRACH TUBE CHANGE, TAB 10/18/18 Acetaminophen* (Tylenol*) 325 Mg Tablet, 650 MG GTB Q4H PRN for MILD PAIN LEVEL 1-3, TAB AND FEVER 101F 10/18/18 Budesonide* (Budesonide*) 0.5 Mg/2 Ml Ampul.neb, 0.5 MG INHALATION BID, AMP 10/18/18 Omeprazole* (Omeprazole*) 20 Mg Capsule.dr, 20 MG GTB DAILY, #30 CAP 10/18/18 Multivitamins* (Theragran*) 1 Tab Tab, 1 TAB GTB BID, TAB 10/18/18 Midodrine* (Midodrine*) 10 Mg Tablet, 10 MG GTB TID, TAB HOLD FOR SBP ABOVE 140 10/18/18 Enoxaparin Sodium* (Lovenox*) 30 Mg/0.3 Ml Disp.syrin, 30 MG SQ DAILY, SYR 10/18/18 Ferrous Sulfate* (Ferrous Sulfate*) 220 Mg/5 Ml Solution, 7.5 ML GTB DAILY, ML 10/18/18 Cranberry Extract (Cranberry) 425 Mg Capsule, 425 MG GTB TID, CAP 10/18/18 Docusate Sodium* (Colace*) 100 Mg Capsule, 200 MG GTB QHS, #30 CAP 10/18/18 Chlorhexidine Gluconate (Periogard) 473 Ml Mouthwash, 15 ML MM Q12H, BOTTLE 10/18/18 Aspirin* (Aspirin* Chew) 81 Mg Tab.chew, 81 MG GTB DAILY, TAB.CHEW 10/18/18 Acidophilus/Pectin, [place] (ACIDOPHILUS PROBIOTIC CAPSULE) 1 Each Capsule, 1 EACH GTB BID, CAP 10/18/18 Medications Current Medications IV Flush (NS 3 ml) 3 ml PER PROTOCOL IV ; Start 10/18/18 at 21:30 Ondansetron HCl (Zofran Inj) 4 mg Q6H PRN IV NAUSEA/VOMITING; Start 10/18/18 at 21:30 Acetaminophen (Tylenol Tab) 650 mg Q6H PRN PO .PAIN 1-3 OR TEMP Last administered on 10/25/18 09:49; Admin Dose 650 MG; Start 10/18/18 at 21:30 Enoxaparin Sodium (Lovenox) 30 mg DAILY SC Last administered on 10/26/18 10:01; Admin Dose 30 MG; Start 10/19/18 at 09:00 Cefepime HCl 50 ml @ 100 mls/hr Q12 IVPB Last administered on 10/26/18 09:56; Admin Dose 100 MLS/HR; Start 10/19/18 at 09:00 Vancomycin HCl (Vanco Iv Per Pharmacy) VANCOMYCIN PER PHARMACY PER PROTOCOL XX ; Start 10/18/18 at 21:30 Famotidine (Pepcid) 20 mg Q12 PO Last administered on 10/26/18 09:56; Admin Dose 20 MG; Start 10/21/18 at 21:00 Morphine Sulfate (morphine) 6 mg Q4H PRN PO SEVERE PAIN LEVEL 7-10 Last administered on 10/25/18 23:43; Admin Dose 6 MG; Start 10/21/18 at 23:00 Tramadol HCl (Ultram) 50 mg Q6H PRN PO MODERATE PAIN LEVEL 4-6 Last administered on 10/22/18 17:51; Admin Dose 50 MG; Start 10/22/18 at 18:00 Dextrose/Sodium Chloride 1,000 ml @ 75 mls/hr [id number] IV Last administered on 10/26/18 12:07; Admin Dose 75 MLS/HR; Start 10/22/18 at 18:30 Midodrine (Proamatine) 5 mg Q8 PRN PO SBP<90; Start 10/23/18 at 14:30 Vancomycin HCl 100 ml @ 100 mls/hr Q12H IVPB Last administered on 10/26/18 12:07; Admin Dose 100 MLS/HR; Start 10/26/18 at 00:00 Miscellaneous Information (*Rx Drug Level Order Reminder*) 1 ONCE ONCE XX ; Start 10/27/18 at 11:00; Stop 10/27/18 at 11:01 QUINTIN OWEN MD Oct 26, 2018 16:06
[2018-10-26] MEDS: ACETAMINOPHEN 325 MG TAB PO PRN (16:22)
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
[2018-10-26] MEDS: morphine LIQ (10 MG/5 ML) CUP PO PRN (23:26)
[2018-10-27] VITALS (24 sets, daily range): BP systolic 94–116; BP diastolic 59–73; PULSE 52–95; RESP 18–22
[2018-10-27] MEDS: DEXTROSE 5%-0.9% NACL 1,000 ML IV SCH ×3 (06:21→21:38)
[2018-10-27] MEDS: FAMOTIDINE 20 MG TAB PO SCH ×2 (09:02→20:49)
[2018-10-27] MEDS: CEFEPIME 1GM/50 ML (PMX) 50 ML IVPB SCH ×2 (09:02→20:48)
[2018-10-27] MEDS: ENOXAPARIN 30 MG/0.3 ML SYG SC SCH (09:13)
[2018-10-27] MEDS: VANCOMYCIN 500 MG (PMX) 100 ML IVPB SCH (12:45)
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
--- NOTE | 2018-10-27 13:45 | CONS ---
Consult Date/Type/Reason Admit Date/Time Oct 18, 2018 at 21:17 Initial Consult Date Requesting Provider: ADAM CLEMENS MD Date/Time of Note DATE: 10/27/18 TIME: 13:42 Subjective No acute events - pt stable on vent - con't to follow clinically. ROS: No fever, no chills, no nausea, no vomiting, no diarrhea/constipation No recent weight changes No chest pain, no PND, no orthopnea - stable SOB No dizziness, blurred vision No thirst, no heat or cold intolerance Objective Vitals Vital Signs Date Temp Pulse Resp B/P (MAP) Pulse Ox O2 O2 Flow FiO2 Time Delivery Rate 10/27/18 70 12:26 10/27/18 98.4 21 116/65 99 11:25 (82) 10/27/18 40 11:10 10/27/18 Mechanical 03:37 Ventilator Intake and Output 10/26/18 10/26/18 10/27/18 1414:59 22:59 06:59 IntakeIntake Total 880 ml 1150 ml BalanceBalance 880 ml 1150 ml Exam General: WN/WD/NAD, AOx 3 HEENT: Unicetric/atraumatic/EOMI (follows commands) NECK: trach Lymph: no lymphadenopathy HEART: regular with no S3, II/ systolic murmur at apex LUNGS: Coarse sounds ABD: soft, NT, ND, +BS : Intact Neuro: non focal SKIN: chronic changes EXT: trace edema Results/Medications Result Diagram: 10/27/18 0500 10/27/18 0500 Results 24 hrs Laboratory Tests Test 10/27/18 05:00 10/27/18 10:57 White Blood Count 5.7 # Red Blood Count 3.97 L Hemoglobin 10.9 L Hematocrit 36.9 L Mean Corpuscular Volume 92.9 Mean Corpuscular Hemoglobin 27.5 L Mean Corpuscular Hemoglobin Concent 29.5 L Red Cell Distribution Width 14.8 H Platelet Count 386 Mean Platelet Volume 8.9 Immature Granulocytes % 0.300 Neutrophils % 50.0 Lymphocytes % 38.0 Monocytes % 8.2 Eosinophils % 2.8 Basophils % 0.7 Nucleated Red Blood Cells % 0.0 Immature Granulocytes # 0.020 Neutrophils # 2.9 Lymphocytes # 2.2 Monocytes # 0.5 Eosinophils # 0.2 Basophils # 0.0 Nucleated Red Blood Cells # 0.0 Sodium Level 143 Potassium Level 4.1 Chloride Level 109 Carbon Dioxide Level 25 Anion Gap 9 Blood Urea Nitrogen 15 Creatinine 0.68 Est Glomerular Filtrat Rate mL/min > 60 Glucose Level 96 Calcium Level 9.8 Vancomycin Level Trough 11.6 Home Meds Reported Medications Ipratropium-Albuterol (Ipratropium-Albuterol) 0.5-3 Mg/3 Ml Ampul.neb, 3 ML INHALATION Q6, #30 VIAL 10/18/18 Vit C-Ascorbate Ca-Ascorb Sod (Vitamin C) 500 Mg/15 Ml Liquid, 5 ML GTB DAILY, ML 10/18/18 Tramadol HCl (Tramadol HCl) 50 Mg Tablet, 50 MG GTB BID PRN for PAIN, #60 TAB 10/18/18 Acetaminophen* (Tylenol*) 500 Mg Tab, 1000 MG GTB Q4H PRN for PAIN 7-05/20, TAB 10/18/18 Acetaminophen* (Tylenol*) 325 Mg Tablet, 650 MG GTB NEEDED PRN for TRACH TUBE CHANGE, TAB 10/18/18 Acetaminophen* (Tylenol*) 325 Mg Tablet, 650 MG GTB Q4H PRN for MILD PAIN LEVEL 1-3, TAB AND FEVER 101F 10/18/18 Budesonide* (Budesonide*) 0.5 Mg/2 Ml Ampul.neb, 0.5 MG INHALATION BID, AMP 10/18/18 Omeprazole* (Omeprazole*) 20 Mg Capsule.dr, 20 MG GTB DAILY, #30 CAP 10/18/18 Multivitamins* (Theragran*) 1 Tab Tab, 1 TAB GTB BID, TAB 10/18/18 Midodrine* (Midodrine*) 10 Mg Tablet, 10 MG GTB TID, TAB HOLD FOR SBP ABOVE 140 10/18/18 Enoxaparin Sodium* (Lovenox*) 30 Mg/0.3 Ml Disp.syrin, 30 MG SQ DAILY, SYR 10/18/18 Ferrous Sulfate* (Ferrous Sulfate*) 220 Mg/5 Ml Solution, 7.5 ML GTB DAILY, ML 10/18/18 Cranberry Extract (Cranberry) 425 Mg Capsule, 425 MG GTB TID, CAP 10/18/18 Docusate Sodium* (Colace*) 100 Mg Capsule, 200 MG GTB QHS, #30 CAP 10/18/18 Chlorhexidine Gluconate (Periogard) 473 Ml Mouthwash, 15 ML MM Q12H, BOTTLE 10/18/18 Aspirin* (Aspirin* Chew) 81 Mg Tab.chew, 81 MG GTB DAILY, TAB.CHEW 10/18/18 Acidophilus/Pectin, [place] (ACIDOPHILUS PROBIOTIC CAPSULE) 1 Each Capsule, 1 EACH GTB BID, CAP 10/18/18 Medications Current Medications IV Flush (NS 3 ml) 3 ml PER PROTOCOL IV ; Start 10/18/18 at 21:30 Ondansetron HCl (Zofran Inj) 4 mg Q6H PRN IV NAUSEA/VOMITING; Start 10/18/18 at 21:30 Acetaminophen (Tylenol Tab) 650 mg Q6H PRN PO .PAIN 1-3 OR TEMP Last administered on 10/26/18at 16:22; Admin Dose 650 MG; Start 10/18/18 at 21:30 Enoxaparin Sodium (Lovenox) 30 mg DAILY SC Last administered on 10/27/18at 09:13; Admin Dose 30 MG; Start 10/19/18 at 09:00 Cefepime HCl 50 ml @ 100 mls/hr Q12 IVPB Last administered on 10/27/18 09:02; Admin Dose 100 MLS/HR; Start 10/19/18 at 09:00 Vancomycin HCl (Vanco Iv Per Pharmacy) VANCOMYCIN PER PHARMACY PER PROTOCOL XX ; Start 10/18/18 at 21:30 Famotidine (Pepcid) 20 mg Q12 PO Last administered on 10/27/18 09:02; Admin Dose 20 MG; Start 10/21/18 at 21:00 Morphine Sulfate (morphine) 6 mg Q4H PRN PO SEVERE PAIN LEVEL 7-10 Last administered on 10/26/18 23:26; Admin Dose 6 MG; Start 10/21/18 at 23:00 Tramadol HCl (Ultram) 50 mg Q6H PRN PO MODERATE PAIN LEVEL 4-6 Last administered on 10/22/18at 17:51; Admin Dose 50 MG; Start 10/22/18 at 18:00 Dextrose/Sodium Chloride 1,000 ml @ 75 mls/hr [id number] IV Last administered on 10/27/18at 06:21; Admin Dose 75 MLS/HR; Start 10/22/18 at 18:30 Midodrine (Proamatine) 5 mg Q8 PRN PO SBP<90; Start 10/23/18 at 14:30 Vancomycin HCl 100 ml @ 100 mls/hr Q12H IVPB Last administered on 10/27/18at 12:45; Admin Dose 100 MLS/HR; Start 10/26/18 at 00:00 Assessment/Plan Hospital Course (Demo Recall) 1. Cardiac pause x approximately 5 seconds in the setting of a vented patient with no signs of significant conduction system disease by EKG. Likely primary pulmonary event with possible mucus plugging congestion of the patient's tracheostomy or sleep apnea. Continue to follow.- no receurrnce by tele in last 24 hours. NL EF by echo EF 55. Neg trop x 3. NL TSH - no new pauses now, will monitor clinically. 2. Abnormal electrocardiogram, borderline anterior R-wave progression status post acute coronary syndrome, unlikely. 3. Chronic respiratory failure, status post trach.Con't resp Rx. 4. Dysphagia, status post G-tube- con't feeds. 5. Chronic encephalopathy. 6. Left hemithorax whiteout; question mucous plugging, collapse. Pulmonary team follows. 7. Anemia - H/H satble - con't to follow. 8. Thrombocytosis. QUINTIN OWEN MD Oct 27, 2018 13:45
[2018-10-27] MEDS: traMADol 50 MG TAB PO PRN (14:29)
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
[2018-10-27] MEDS: morphine LIQ (10 MG/5 ML) CUP PO PRN (21:38)
[2018-10-28] VITALS (23 sets, daily range): BP systolic 93–116; BP diastolic 53–74; PULSE 49–82; RESP 18–24
[2018-10-28] MEDS: VANCOMYCIN 500 MG (PMX) 100 ML IVPB SCH ×2 (00:24→11:47)
[2018-10-28] MEDS: MIDODRINE 5 MG TAB PO PRN (00:25)
[2018-10-28] MEDS: CEFEPIME 1GM/50 ML (PMX) 50 ML IVPB SCH ×2 (08:54→21:49)
[2018-10-28] MEDS: FAMOTIDINE 20 MG TAB PO SCH ×2 (09:00→21:49)
[2018-10-28] MEDS: ENOXAPARIN 30 MG/0.3 ML SYG SC SCH (09:07)
[2018-10-28] MEDS: DEXTROSE 5%-0.9% NACL 1,000 ML IV SCH (11:48)
--- NOTE | 2018-10-28 11:49 | CONS ---
Assessment/Plan Assessment/Plan Hospital Course (Demo Recall) IMPRESSION: 1. Cardiac pause x approximately 5 seconds in the setting of a vented patient with no signs of significant conduction system disease by EKG. Likely primary pulmonary event with possible mucus plugging congestion of the patient's tracheostomy or sleep apnea. Continue to follow.- no recurrnece by tele. NL EF by echo EF 55. Neg trop x 3. NL TSH 2. Abnormal electrocardiogram, borderline anterior R-wave progression status post acute coronary syndrome, unlikely. 3. Chronic respiratory failure, status post trach. 4. Dysphagia, status post G-tube. 5. Chronic encephalopathy. 6. Left hemithorax whiteout; question mucous plugging, collapse. 7. Anemia. 8. Thrombocytosis. Recc: -Tele -Follow for recurrent significant pause -Contineu abx's and f/u cx data -Contineu midodrine BP support as necessary Consultation Date/Type/Reason Admit Date/Time Oct 18, 2018 at 21:17 Initial Consult Date 10/23/18 Type of Consult Cardiology Reason for Consultation pause Requesting Provider: ADAM CLEMENS MD Date/Time of Note DATE: 10/28/18 TIME: 11:47 Exam/Review of Systems Vital Signs Vitals Vital Signs Date Temp Pulse Resp B/P (MAP) Pulse Ox O2 O2 Flow FiO2 Time Delivery Rate 10/28/18 98.7 75 21 97/53 (68) 97 11:35 10/28/18 40 05:19 10/27/18 Mechanical 03:37 Ventilator Intake and Output 10/27/18 10/27/18 10/28/18 1515:00 23:00 07:00 IntakeIntake Total 150 ml 1700 ml 1075 ml BalanceBalance 150 ml 1700 ml 1075 ml Exam Exam Review of Systems: CONSTITUTIONAL: No fevers, chills. PULMONARY: trached CARDIOVASCULAR: No chest pain/palpitations GASTROINTESTINAL: No nausea/vomiting. GENITOURINARY: No hematuria/dysuria. MUSCULOSKELETAL: No myagias/arthalgias. PSYCHIATRIC: The patient denies depression. NEUROLOGIC: No weakness Constitutional: alert Psych: no complaints Head: normocephalic ENMT: mucosa pink and moist Neck: supple, jvd (9 cm water) Respiratory: diminished breath sounds (at bases/B) Cardiovascular: regular rate and rhythm Gastrointestinal: soft, non-tender Musculoskeletal: muscle weakness (generalized) Extremities: edema (none/contracted) Labs Result Diagram: 10/28/18 0535 10/28/18 0535 Results 24hrs Laboratory Tests Test 10/28/18 05:35 White Blood Count 7.1 # Red Blood Count 3.71 L Hemoglobin 10.4 L Hematocrit 34.2 L Mean Corpuscular Volume 92.2 Mean Corpuscular Hemoglobin 28.0 L Mean Corpuscular Hemoglobin Concent 30.4 L Red Cell Distribution Width 14.7 H Platelet Count 367 Mean Platelet Volume 8.9 Immature Granulocytes % 0.300 Neutrophils % 64.3 Lymphocytes % 25.8 Monocytes % 6.6 Eosinophils % 2.7 Basophils % 0.3 Nucleated Red Blood Cells % 0.0 Immature Granulocytes # 0.020 Neutrophils # 4.6 Lymphocytes # 1.8 Monocytes # 0.5 Eosinophils # 0.2 Basophils # 0.0 Nucleated Red Blood Cells # 0.0 Sodium Level 142 Potassium Level 4.3 Chloride Level 105 Carbon Dioxide Level 23 Anion Gap 14 H Blood Urea Nitrogen 16 Creatinine 0.71 Est Glomerular Filtrat Rate mL/min > 60 Glucose Level 92 Calcium Level 9.9 Medications Medications Current Medications IV Flush (NS 3 ml) 3 ml PER PROTOCOL IV ; Start 10/18/18 at 21:30 Ondansetron HCl (Zofran Inj) 4 mg Q6H PRN IV NAUSEA/VOMITING; Start 10/18/18 at 21:30 Acetaminophen (Tylenol Tab) 650 mg Q6H PRN PO .PAIN 1-3 OR TEMP Last administered on 10/26/18at 16:22; Admin Dose 650 MG; Start 10/18/18 at 21:30 Enoxaparin Sodium (Lovenox) 30 mg DAILY SC Last administered on 10/28/18at 09:07; Admin Dose 30 MG; Start 10/19/18 at 09:00 Cefepime HCl 50 ml @ 100 mls/hr Q12 IVPB Last administered on 10/28/18at 08:54; Admin Dose 100 MLS/HR; Start 10/19/18 at 09:00 Vancomycin HCl (Vanco Iv Per Pharmacy) VANCOMYCIN PER PHARMACY PER PROTOCOL XX ; Start 10/18/18 at 21:30 Famotidine (Pepcid) 20 mg Q12 PO Last administered on 10/28/18at 09:00; Admin Dose 20 MG; Start 10/21/18 at 21:00 Morphine Sulfate (morphine) 6 mg Q4H PRN PO SEVERE PAIN LEVEL 7-10 Last administered on 10/27/18 21:38; Admin Dose 6 MG; Start 10/21/18 at 23:00 Tramadol HCl (Ultram) 50 mg Q6H PRN PO MODERATE PAIN LEVEL 4-6 Last administered on 10/27/18 14:29; Admin Dose 50 MG; Start 10/22/18 at 18:00 Dextrose/Sodium Chloride 1,000 ml @ 75 mls/hr [id number] IV Last administered on 10/27/18 21:38; Admin Dose 75 MLS/HR; Start 10/22/18 at 18:30 Midodrine (Proamatine) 5 mg Q8 PRN PO SBP<90 Last administered on 10/28/18at 00:25; Admin Dose 5 MG; Start 10/23/18 at 14:30 Vancomycin HCl 100 ml @ 100 mls/hr Q12H IVPB Last administered on 10/28/18at 00:24; Admin Dose 100 MLS/HR; Start 10/26/18 at 00:00 NOE SAWYER Oct 28, 2018 11:49
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
[2018-10-28] MEDS: ACETYLCYSTEINE 20% 4 ML VIAL NEB SCH ×2 (16:30→20:00)
[2018-10-28] MEDS: morphine LIQ (10 MG/5 ML) CUP PO PRN ×2 (17:04→22:41)
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
[2018-10-29] VITALS (25 sets, daily range): BP systolic 94–110; BP diastolic 50–71; PULSE 34–98; RESP 18–20
[2018-10-29] MEDS: DEXTROSE 5%-0.9% NACL 1,000 ML IV SCH ×4 (00:39→18:52)
[2018-10-29] MEDS: VANCOMYCIN 500 MG (PMX) 100 ML IVPB SCH ×3 (00:39→23:57)
[2018-10-29] MEDS: ACETYLCYSTEINE 20% 4 ML VIAL NEB SCH ×4 (01:19→19:44)
[2018-10-29] MEDS: morphine LIQ (10 MG/5 ML) CUP PO PRN ×2 (02:42→23:42)
[2018-10-29] MEDS: FAMOTIDINE 20 MG TAB PO SCH ×2 (08:30→21:09)
[2018-10-29] MEDS: CEFEPIME 1GM/50 ML (PMX) 50 ML IVPB SCH ×2 (08:30→21:09)
[2018-10-29] MEDS: ENOXAPARIN 30 MG/0.3 ML SYG SC SCH (08:39)
--- NOTE | 2018-10-29 09:16 | CONS ---
Consult Date/Type/Reason Admit Date/Time Oct 18, 2018 at 21:17 Initial Consult Date Requesting Provider: ADAM CLEMENS MD Date/Time of Note DATE: 10/29/18 TIME: 09:14 Subjective NO acute events - BP stable - no CP - con't res Rx - n pauses noted. ROS: No fever, no chills, no nausea, no vomiting, no diarrhea/constipation No recent weight changes No chest pain, no PND, no orthopnea - chronic SOB No dizziness, blurred vision No thirst, no heat or cold intolerance Objective Vitals Vital Signs Date Temp Pulse Resp B/P (MAP) Pulse Ox O2 O2 Flow FiO2 Time Delivery Rate 10/29/18 98.6 68 18 107/68 99 07:40 (81) 10/29/18 40 05:15 10/27/18 Mechanical 03:37 Ventilator Intake and Output 10/28/18 10/28/18 10/29/18 1515:00 23:00 07:00 IntakeIntake Total 375 ml 450 ml 1300 ml BalanceBalance 375 ml 450 ml 1300 ml Exam General: WN/WD/NAD, AOx 2-3 HEENT: Unicetric/atraumatic/EOMI (follow commands) NECK: trach Lymph: no lymphadenopathy HEART: regular with no S3, II/ systolic murmur at apex LUNGS: Coarse sounds ABD: soft, NT, ND, +BS : Intact Neuro: non focal SKIN: chronic changes EXT: trace edema Results/Medications Result Diagram: 10/28/18 0535 10/28/18 0535 Home Meds Reported Medications Ipratropium-Albuterol (Ipratropium-Albuterol) 0.5-3 Mg/3 Ml Ampul.neb, 3 ML INHALATION Q6, #30 VIAL 10/18/18 Vit C-Ascorbate Ca-Ascorb Sod (Vitamin C) 500 Mg/15 Ml Liquid, 5 ML GTB DAILY, ML 10/18/18 Tramadol HCl (Tramadol HCl) 50 Mg Tablet, 50 MG GTB BID PRN for PAIN, #60 TAB 10/18/18 Acetaminophen* (Tylenol*) 500 Mg Tab, 1000 MG GTB Q4H PRN for PAIN 7-9/10, TAB 10/18/18 Acetaminophen* (Tylenol*) 325 Mg Tablet, 650 MG GTB NEEDED PRN for TRACH TUBE CHANGE, TAB 10/18/18 Acetaminophen* (Tylenol*) 325 Mg Tablet, 650 MG GTB Q4H PRN for MILD PAIN LEVEL 1-3, TAB AND FEVER 101F 10/18/18 Budesonide* (Budesonide*) 0.5 Mg/2 Ml Ampul.neb, 0.5 MG INHALATION BID, AMP 10/18/18 Omeprazole* (Omeprazole*) 20 Mg Capsule.dr, 20 MG GTB DAILY, #30 CAP 10/18/18 Multivitamins* (Theragran*) 1 Tab Tab, 1 TAB GTB BID, TAB 10/18/18 Midodrine* (Midodrine*) 10 Mg Tablet, 10 MG GTB TID, TAB HOLD FOR SBP ABOVE 140 10/18/18 Enoxaparin Sodium* (Lovenox*) 30 Mg/0.3 Ml Disp.syrin, 30 MG SQ DAILY, SYR 10/18/18 Ferrous Sulfate* (Ferrous Sulfate*) 220 Mg/5 Ml Solution, 7.5 ML GTB DAILY, ML 10/18/18 Cranberry Extract (Cranberry) 425 Mg Capsule, 425 MG GTB TID, CAP 10/18/18 Docusate Sodium* (Colace*) 100 Mg Capsule, 200 MG GTB QHS, #30 CAP 10/18/18 Chlorhexidine Gluconate (Periogard) 473 Ml Mouthwash, 15 ML MM Q12H, BOTTLE 10/18/18 Aspirin* (Aspirin* Chew) 81 Mg Tab.chew, 81 MG GTB DAILY, TAB.CHEW 10/18/18 Acidophilus/Pectin, [place] (ACIDOPHILUS PROBIOTIC CAPSULE) 1 Each Capsule, 1 EACH GTB BID, CAP 10/18/18 Medications Current Medications IV Flush (NS 3 ml) 3 ml PER PROTOCOL IV ; Start 10/18/18 at 21:30 Ondansetron HCl (Zofran Inj) 4 mg Q6H PRN IV NAUSEA/VOMITING; Start 10/18/18 at 21:30 Acetaminophen (Tylenol Tab) 650 mg Q6H PRN PO .PAIN 1-3 OR TEMP Last administered on 10/26/18at 16:22; Admin Dose 650 MG; Start 10/18/18 at 21:30 Enoxaparin Sodium (Lovenox) 30 mg DAILY SC Last administered on 10/29/18 08:39; Admin Dose 30 MG; Start 10/19/18 at 09:00 Cefepime HCl 50 ml @ 100 mls/hr Q12 IVPB Last administered on 10/29/18 08:30; Admin Dose 100 MLS/HR; Start 10/19/18 at 09:00 Vancomycin HCl (Vanco Iv Per Pharmacy) VANCOMYCIN PER PHARMACY PER PROTOCOL XX ; Start 10/18/18 at 21:30 Famotidine (Pepcid) 20 mg Q12 PO Last administered on 10/29/18 08:30; Admin Dose 20 MG; Start 10/21/18 at 21:00 Morphine Sulfate (morphine) 6 mg Q4H PRN PO SEVERE PAIN LEVEL 7-10 Last administered on 10/29/18 02:42; Admin Dose 6 MG; Start 10/21/18 at 23:00 Tramadol HCl (Ultram) 50 mg Q6H PRN PO MODERATE PAIN LEVEL 4-6 Last administer ed on 10/27/18 14:29; Admin Dose 50 MG; Start 10/22/18 at 18:00 Dextrose/Sodium Chloride 1,000 ml @ 75 mls/hr [id number] IV Last administered on 10/29/18 00:39; Admin Dose 75 MLS/HR; Start 10/22/18 at 18:30 Midodrine (Proamatine) 5 mg Q8 PRN PO SBP<90 Last administered on 10/28/18 00:25; Admin Dose 5 MG; Start 10/23/18 at 14:30 Vancomycin HCl 100 ml @ 100 mls/hr Q12H IVPB Last administered on 10/29/18 00:39; Admin Dose 100 MLS/HR; Start 10/26/18 at 00:00 Acetylcysteine (Mucomyst) 2 ml Q6H RESP THERAPY NEB ; Start 10/28/18 at 16:30 Assessment/Plan Hospital Course (Demo Recall) 1. Cardiac pause x approximately 5 seconds in the setting of a vented patient with no signs of significant conduction system disease by EKG. Likely primary pulmonary event with possible mucus plugging congestion of the patient's tracheostomy or sleep apnea. Continue to follow.- no receurrnce by tele in last 24 hours. NL EF by echo EF 55. Neg trop x 3. NL TSH - no new pauses now, will monitor clinically. NO new pauses - no indictaion for pacer. 2. Abnormal electrocardiogram, borderline anterior R-wave progression status post acute coronary syndrome, unlikely. 3. Chronic respiratory failure, status post trach.Con't resp Rx. 4. Dysphagia, status post G-tube- con't feeds. 5. Chronic encephalopathy - more alert now. 6. Left hemithorax whiteout; question mucous plugging, collapse. Pulmonary team follows. BETTER now. 7. Anemia - H/H satble - con't to follow. 8. Thrombocytosis. QUINTIN OWEN MD Oct 29, 2018 09:16
[2018-10-29] MEDS: DOCUSATE SODIUM 100 MG CAP PO SCH ×2 (11:57→21:00)
[2018-10-29] MEDS: BISACODYL (EC) 5 MG TAB PO PRN (11:58)
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
[2018-10-29] MEDS: ALBUTEROL/IPRATROPIUM (NEB) 3 ML AMP HHN SCH ×2 (13:17→19:44)
--- NOTE | 2018-10-29 14:57 | CONS ---
Consult Date/Type/Reason Admit Date/Time Oct 18, 2018 at 21:17 Initial Consult Date Type of Consult Pulmonary Requesting Provider: ADAM CLEMENS MD Date/Time of Note DATE: 10/29/18 TIME: 14:56 Subjective Patient remains stable today. No respiratory distress awake alert. Chest x-ray is unchanged. He had previously declined Mucomyst. Objective Vital Signs Date Temp Pulse Resp B/P (MAP) Pulse Ox O2 O2 Flow FiO2 Time Delivery Rate 10/29/18 70 18 97 40 13:10 10/29/18 98.0 106/69 11:59 (81) 10/27/18 Mechanical 03:37 Ventilator Intake and Output 10/28/18 10/28/18 10/29/18 1515:00 23:00 07:00 IntakeIntake Total 375 ml 450 ml 1300 ml BalanceBalance 375 ml 450 ml 1300 ml Exam PHYSICAL EXAMINATION: GENERAL: Chronically ill appearing gentleman, comfortable at rest, in no acute distress. VITAL SIGNS: NECK: Trach site is clean and intact. CARDIAC: S1, S2. No added sounds or murmurs. CHEST: Diminished air entry bilaterally. ABDOMEN: Soft, nontender. No guarding or rebound. EXTREMITIES: No cyanosis, clubbing, edema. NEUROLOGIC: Generalized weakness. Vent Setting Ventilator Support Mode: AC Fraction of Inspired Oxygen pe: 40 Positive End Expiratory Pressu: 0.0 Results/Medications Result Diagram: 10/28/18 0535 10/28/18 0535 Medications Current Medications IV Flush (NS 3 ml) 3 ml PER PROTOCOL IV ; Start 10/18/18 at 21:30 Ondansetron HCl (Zofran Inj) 4 mg Q6H PRN IV NAUSEA/VOMITING; Start 10/18/18 at 21:30 Acetaminophen (Tylenol Tab) 650 mg Q6H PRN PO .PAIN 1-3 OR TEMP Last administe red on 10/26/18at 16:22; Admin Dose 650 MG; Start 10/18/18 at 21:30 Enoxaparin Sodium (Lovenox) 30 mg DAILY SC Last administered on 10/29/18at 08:39; Admin Dose 30 MG; Start 10/19/18 at 09:00 Cefepime HCl 50 ml @ 100 mls/hr Q12 IVPB Last administered on 10/29/18at 08:30; Admin Dose 100 MLS/HR; Start 10/19/18 at 09:00 Vancomycin HCl (Vanco Iv Per Pharmacy) VANCOMYCIN PER PHARMACY PER PROTOCOL XX ; Start 10/18/18 at 21:30 Famotidine (Pepcid) 20 mg Q12 PO Last administered on 10/29/18 08:30; Admin Do se 20 MG; Start 10/21/18 at 21:00 Morphine Sulfate (morphine) 6 mg Q4H PRN PO SEVERE PAIN LEVEL 7-10 Last administered on 10/29/18 02:42; Admin Dose 6 MG; Start 10/21/18 at 23:00 Tramadol HCl (Ultram) 50 mg Q6H PRN PO MODERATE PAIN LEVEL 4-6 Last administered on 10/27/18 14:29; Admin Dose 50 MG; Start 10/22/18 at 18:00 Dextrose/Sodium Chloride 1,000 ml @ 75 mls/hr [id number] IV Last administered on 10/29/18 00:39; Admin Dose 75 MLS/HR; Start 10/22/18 at 18:30 Midodrine (Proamatine) 5 mg Q8 PRN PO SBP<90 Last administered on 10/28/18 00:25; Admin Dose 5 MG; Start 10/23/18 at 14:30 Vancomycin HCl 100 ml @ 100 mls/hr Q12H IVPB Last administered on 10/29/18 11:58; Admin Dose 100 MLS/HR; Start 10/26/18 at 00:00 Acetylcysteine (Mucomyst) 2 ml Q6H RESP THERAPY NEB Last administered on 10/29/18 13:18; Admin Dose 2 ML; Start 10/28/18 at 16:30 Albuterol/ Ipratropium (Duoneb) 3 ml Q6H RESP THERAPY HHN Last administered on 10/29/18 13:17; Admin Dose 3 ML; Start 10/29/18 at 14:00 Docusate Sodium (Colace) 100 mg BID PO Last administered on 10/29/18 11:57; Admin Dose 100 MG; Start 10/29/18 at 11:00 Bisacodyl (Dulcolax) 10 mg DAILY PRN PO CONSTIPATION Last administered on 10/29/18 11:58; Admin Dose 10 MG; Start 10/29/18 at 11:00 Assessment/Plan Hospital Course (Demo Recall) IMPRESSION Left lung volume loss likely secondary to mucous plugging and possible aspiration component. Plan 1. Chest PT. 2. Mucomyst. 3. Current vent settings with PMV trials. 4. Aspiration precautions. 5. DVT and GI prophylaxis. Discussed with charge nurse need to change bed to a bed that provides percussion. Patient will benefit from a percussion vest. ROLANDO COLIN MD, [facility] Oct 29, 2018 14:57
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
[2018-10-30] VITALS (26 sets, daily range): BP systolic 70–135; BP diastolic 35–89; PULSE 68–125; RESP 17–28
[2018-10-30] MEDS: ACETAMINOPHEN 325 MG TAB PO PRN ×2 (00:43→08:40)
[2018-10-30] MEDS: ACETYLCYSTEINE 20% 4 ML VIAL NEB SCH ×4 (01:48→19:36)
[2018-10-30] MEDS: ALBUTEROL/IPRATROPIUM (NEB) 3 ML AMP HHN SCH ×4 (01:48→19:36)
[2018-10-30] MEDS ORDERED: LORAZEPAM 2 MG INJ IV PRN (02:00)
[2018-10-30] MEDS: DOCUSATE SODIUM 100 MG CAP PO SCH ×2 (08:39→21:25)
[2018-10-30] MEDS: FAMOTIDINE 20 MG TAB PO SCH ×2 (08:39→21:25)
[2018-10-30] MEDS: CEFEPIME 1GM/50 ML (PMX) 50 ML IVPB SCH ×2 (08:39→21:26)
[2018-10-30] MEDS: ENOXAPARIN 30 MG/0.3 ML SYG SC SCH (09:03)
[2018-10-30] MEDS: DEXTROSE 5%-0.9% NACL 1,000 ML IV SCH ×3 (10:27→13:10)
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
[2018-10-30] MEDS: VANCOMYCIN 500 MG (PMX) 100 ML IVPB SCH (11:38)
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
--- NOTE | 2018-10-30 14:46 | CONS ---
Consult Date/Type/Reason Admit Date/Time Oct 18, 2018 at 21:17 Initial Consult Date Type of Consult Pulmonary Requesting Provider: ADAM CLEMENS MD Date/Time of Note DATE: 10/30/18 TIME: 14:44 Subjective Patient stable this morning. No new events Objective Vital Signs Date Temp Pulse Resp B/P (MAP) Pulse Ox O2 O2 Flow FiO2 Time Delivery Rate 10/30/18 91 12:21 10/30/18 22 100 50 11:50 10/30/18 99.2 135/89 11:15 (104) 10/27/18 Mechanical 03:37 Ventilator Intake and Output 10/29/18 10/29/18 10/30/18 1515:00 23:00 07:00 IntakeIntake Total 150 ml 1500 ml 100 ml BalanceBalance 150 ml 1500 ml 100 ml Exam PHYSICAL EXAMINATION: GENERAL: Chronically ill appearing gentleman, comfortable at rest, in no acute distress. VITAL SIGNS: NECK: Trach site is clean and intact. CARDIAC: S1, S2. No added sounds or murmurs. CHEST: Diminished air entry bilaterally. ABDOMEN: Soft, nontender. No guarding or rebound. EXTREMITIES: No cyanosis, clubbing, edema. NEUROLOGIC: Generalized weakness. Vent Setting Ventilator Support Mode: AC Fraction of Inspired Oxygen pe: 50 Positive End Expiratory Pressu: 5.0 Results/Medications Result Diagram: 10/28/18 0535 10/30/18 0525 Results 24 hrs Laboratory Tests Test 10/30/18 05:25 Sodium Level 143 Potassium Level 4.9 Chloride Level 112 H Carbon Dioxide Level 22 Anion Gap 9 # Blood Urea Nitrogen 21 H Creatinine 0.82 Est Glomerular Filtrat Rate mL/min > 60 Glucose Level 106 Calcium Level 9.8 Medications Current Medications IV Flush (NS 3 ml) 3 ml PER PROTOCOL IV ; Start 10/18/18 at 21:30 Ondansetron HCl (Zofran Inj) 4 mg Q6H PRN IV NAUSEA/VOMITING; Start 10/18/18 at 21:30 Acetaminophen (Tylenol Tab) 650 mg Q6H PRN PO .PAIN 1-3 OR TEMP Last administered on 10/30/18at 08:40; Admin Dose 650 MG; Start 10/18/18 at 21:30 Enoxaparin Sodium (Lovenox) 30 mg DAILY SC Last administered on 10/30/18at 09:03; Admin Dose 30 MG; Start 10/19/18 at 09:00 Cefepime HCl 50 ml @ 100 mls/hr Q12 IVPB Last administered on 10/30/18 08:39; Admin Dose 100 MLS/HR; Start 10/19/18 at 09:00 Vancomycin HCl (Vanco Iv Per Pharmacy) VANCOMYCIN PER PHARMACY PER PROTOCOL XX ; Start 10/18/18 at 21:30 Famotidine (Pepcid) 20 mg Q12 PO Last administered on 10/30/18 08:39; Admin Dose 20 MG; Start 10/21/18 at 21:00 Morphine Sulfate (morphine) 6 mg Q4H PRN PO SEVERE PAIN LEVEL 7-10 Last admini stered on 10/29/18 23:42; Admin Dose 6 MG; Start 10/21/18 at 23:00 Tramadol HCl (Ultram) 50 mg Q6H PRN PO MODERATE PAIN LEVEL 4-6 Last administered on 10/27/18 14:29; Admin Dose 50 MG; Start 10/22/18 at 18:00 Dextrose/Sodium Chloride 1,000 ml @ 75 mls/hr [id number] IV Last administered on 10/30/18 10:28; Admin Dose 75 MLS/HR; Start 10/22/18 at 18:30 Midodrine (Proamatine) 5 mg Q8 PRN PO SBP<90 Last administered on 10/28/18 00:25; Admin Dose 5 MG; Start 10/23/18 at 14:30 Vancomycin HCl 100 ml @ 100 mls/hr Q12H IVPB Last administered on 10/30/18 11:38; Admin Dose 100 MLS/HR; Start 10/26/18 at 00:00 Acetylcysteine (Mucomyst) 2 ml Q6H RESP THERAPY NEB Last administered on 10/30/18 13:25; Admin Dose 2 ML; Start 10/28/18 at 16:30 Albuterol/ Ipratropium (Duoneb) 3 ml Q6H RESP THERAPY HHN Last administered on 10/30/18 13:25; Admin Dose 3 ML; Start 10/29/18 at 14:00 Docusate Sodium (Colace) 100 mg BID PO Last administered on 10/30/18 08:39; Admin Dose 100 MG; Start 10/29/18 at 11:00 Bisacodyl (Dulcolax) 10 mg DAILY PRN PO CONSTIPATION Last administered on 10/29/18at 11:58; Admin Dose 10 MG; Start 10/29/18 at 11:00 Lorazepam (Ativan) 1 mg Q4 PRN IV AGITATION/ANXIETY Last administered on 10/30/18at 02:06; Admin Dose 1 MG; Start 10/30/18 at 02:00 Miscellaneous Information (*Rx Drug Level Order Reminder*) VANCO TROUGH @ 1,100 ON... ONCE ONCE XX ; Start 10/31/18 at 11:00; Stop 10/31/18 at 11:01 Assessment/Plan Hospital Course (Demo Recall) IMPRESSION Left lung volume loss likely secondary to mucous plugging and possible aspiration component. Slowly improving aeration. Plan 1. Chest PT. 2. Mucomyst. 3. Current vent settings with PMV trials. 4. Aspiration precautions. 5. DVT and GI prophylaxis. Repeat chest x-ray in [facility] Oct 30, 2018 14:46
--- NOTE | 2018-10-30 15:47 | CONS ---
Assessment/Plan Assessment/Plan Hospital Course (Demo Recall) IMPRESSION: 1. Cardiac pause x approximately 5 seconds in the setting of a vented patient with no signs of significant conduction system disease by EKG. Likely primary pulmonary event with possible mucus plugging congestion of the patient's tracheostomy or sleep apnea. Continue to follow.- no recurrnece by tele. NL EF by echo EF 55. Neg trop x 3. NL TSH 2. Abnormal electrocardiogram, borderline anterior R-wave progression status post acute coronary syndrome, unlikely. 3. Chronic respiratory failure, status post trach. 4. Dysphagia, status post G-tube. 5. Chronic encephalopathy. 6. Left hemithorax whiteout; question mucous plugging, collapse. 7. Anemia. 8. Thrombocytosis. Recc: -Tele -Follow for recurrent significant pause -Contineu abx's and f/u cx data -Contineu midodrine BP support as necessary Consultation Date/Type/Reason Admit Date/Time Oct 18, 2018 at 21:17 Initial Consult Date 10/23/18 Type of Consult Cardiology Reason for Consultation Pause Requesting Provider: ADAM CLEMENS MD Date/Time of Note DATE: 10/30/18 TIME: 15:45 Exam/Review of Systems Vital Signs Vitals Vital Signs Date Temp Pulse Resp B/P (MAP) Pulse Ox O2 O2 Flow FiO2 Time Delivery Rate 10/30/18 99.0 91 19 119/71 99 15:30 (87) 10/30/18 50 11:50 10/27/18 Mechanical 03:37 Ventilator Intake and Output 10/29/18 10/29/18 10/30/18 1515:00 23:00 07:00 IntakeIntake Total 150 ml 1500 ml 100 ml BalanceBalance 150 ml 1500 ml 100 ml Exam Exam Review of Systems: CONSTITUTIONAL: No fevers, chills. PULMONARY: No sob CARDIOVASCULAR: No chest pain/palpitations GASTROINTESTINAL: No nausea/vomiting. GENITOURINARY: No hematuria/dysuria. MUSCULOSKELETAL: No myagias/arthalgias. PSYCHIATRIC: The patient denies depression. NEUROLOGIC: No weakness Constitutional: alert Psych: no complaints Head: normocephalic ENMT: mucosa pink and moist Neck: supple, jvd (9 cxm water), other (trached) Respiratory: diminished breath sounds Cardiovascular: regular rate and rhythm Gastrointestinal: soft, non-tender Musculoskeletal: muscle weakness (generalized) Extremities: edema (trace/B) Neurological: other Skin: other (No focal deficits) Labs Result Diagram: 10/28/18 0535 10/30/18 0525 Results 24hrs Laboratory Tests Test 10/30/18 05:25 Sodium Level 143 Potassium Level 4.9 Chloride Level 112 H Carbon Dioxide Level 22 Anion Gap 9 # Blood Urea Nitrogen 21 H Creatinine 0.82 Est Glomerular Filtrat Rate mL/min > 60 Glucose Level 106 Calcium Level 9.8 Medications Medications Current Medications IV Flush (NS 3 ml) 3 ml PER PROTOCOL IV ; Start 10/18/18 at 21:30 Ondansetron HCl (Zofran Inj) 4 mg Q6H PRN IV NAUSEA/VOMITING; Start 10/18/18 at 21:30 Acetaminophen (Tylenol Tab) 650 mg Q6H PRN PO .PAIN 1-3 OR TEMP Last administered on 10/30/18 08:40; Admin Dose 650 MG; Start 10/18/18 at 21:30 Enoxaparin Sodium (Lovenox) 30 mg DAILY SC Last administered on 10/30/18 09:03; Admin Dose 30 MG; Start 10/19/18 at 09:00 Cefepime HCl 50 ml @ 100 mls/hr Q12 IVPB Last administered on 10/30/18 08:39; Admin Dose 100 MLS/HR; Start 10/19/18 at 09:00 Vancomycin HCl (Vanco Iv Per Pharmacy) VANCOMYCIN PER PHARMACY PER PROTOCOL XX ; Start 10/18/18 at 21:30 Famotidine (Pepcid) 20 mg Q12 PO Last administered on 10/30/18 08:39; Admin Dose 20 MG; Start 10/21/18 at 21:00 Morphine Sulfate (morphine) 6 mg Q4H PRN PO SEVERE PAIN LEVEL 7-10 Last administered on 10/29/18 23:42; Admin Dose 6 MG; Start 10/21/18 at 23:00 Tramadol HCl (Ultram) 50 mg Q6H PRN PO MODERATE PAIN LEVEL 4-6 Last administered on 10/27/18 14:29; Admin Dose 50 MG; Start 10/22/18 at 18:00 Dextrose/Sodium Chloride 1,000 ml @ 75 mls/hr [id number] IV Last administered on 10/30/18 10:28; Admin Dose 75 MLS/HR; Start 10/22/18 at 18:30 Midodrine (Proamatine) 5 mg Q8 PRN PO SBP<90 Last administered on 10/28/18 00:25; Admin Dose 5 MG; Start 10/23/18 at 14:30 Vancomycin HCl 100 ml @ 100 mls/hr Q12H IVPB Last administered on 10/30/18 11:38; Admin Dose 100 MLS/HR; Start 10/26/18 at 00:00 Acetylcysteine (Mucomyst) 2 ml Q6H RESP THERAPY NEB Last administered on 10/30/18 13:25; Admin Dose 2 ML; Start 10/28/18 at 16:30 Albuterol/ Ipratropium (Duoneb) 3 ml Q6H RESP THERAPY HHN Last administered on 10/30/18 13:25; Admin Dose 3 ML; Start 10/29/18 at 14:00 Docusate Sodium (Colace) 100 mg BID PO Last administered on 10/30/18 08:39; Admin Dose 100 MG; Start 10/29/18 at 11:00 Bisacodyl (Dulcolax) 10 mg DAILY PRN PO CONSTIPATION Last administered on 10/29/18 11:58; Admin Dose 10 MG; Start 10/29/18 at 11:00 Lorazepam (Ativan) 1 mg Q4 PRN IV AGITATION/ANXIETY Last administered on 10/30/18 02:06; Admin Dose 1 MG; Start 10/30/18 at 02:00 Miscellaneous Information (*Rx Drug Level Order Reminder*) VANCO TROUGH @ 1,100 ON... ONCE ONCE XX ; Start 10/31/18 at 11:00; Stop 10/31/18 at 11:01 NOE SAWYER Oct 30, 2018 15:47
[2018-10-30] MEDS: morphine LIQ (10 MG/5 ML) CUP PO PRN (21:31)
[2018-10-31] VITALS (22 sets, daily range): BP systolic 86–125; BP diastolic 50–82; PULSE 63–113; RESP 16–30
[2018-10-31] MEDS: VANCOMYCIN 500 MG (PMX) 100 ML IVPB SCH ×2 (00:06→12:29)
[2018-10-31] MEDS: ACETYLCYSTEINE 20% 4 ML VIAL NEB SCH ×4 (01:16→19:42)
[2018-10-31] MEDS: ALBUTEROL/IPRATROPIUM (NEB) 3 ML AMP HHN SCH ×4 (01:16→19:42)
[2018-10-31] MEDS: DEXTROSE 5%-0.9% NACL 1,000 ML IV SCH ×3 (02:53→19:27)
[2018-10-31] MEDS: morphine LIQ (10 MG/5 ML) CUP PO PRN ×2 (04:41→18:12)
[2018-10-31] MEDS: MIDODRINE 5 MG TAB PO PRN (08:49)
[2018-10-31] MEDS: DOCUSATE SODIUM 100 MG CAP PO SCH ×2 (08:49→20:39)
[2018-10-31] MEDS: FAMOTIDINE 20 MG TAB PO SCH ×2 (08:49→20:39)
[2018-10-31] MEDS: CEFEPIME 1GM/50 ML (PMX) 50 ML IVPB SCH ×2 (08:49→20:39)
[2018-10-31] MEDS: ENOXAPARIN 30 MG/0.3 ML SYG SC SCH (08:53)
--- NOTE | 2018-10-31 12:08 | CONS ---
Assessment/Plan Assessment/Plan Hospital Course (Demo Recall) IMPRESSION: 1. Cardiac pause x approximately 5 seconds in the setting of a vented patient with no signs of significant conduction system disease by EKG. Likely primary pulmonary event with possible mucus plugging congestion of the patient's tracheostomy or sleep apnea. Continue to follow.- no recurrnece by tele. NL EF by echo EF 55. Neg trop x 3. NL TSH 2. Abnormal electrocardiogram, borderline anterior R-wave progression status post acute coronary syndrome, unlikely. 3. Chronic respiratory failure, status post trach. 4. Dysphagia, status post G-tube. 5. Chronic encephalopathy. 6. Left hemithorax whiteout; question mucous plugging, collapse. 7. Anemia. 8. Thrombocytosis. Recc: -Tele -Follow for recurrent significant pause -Contineu abx's and f/u cx data -Contineu midodrine BP support as necessary Consultation Date/Type/Reason Admit Date/Time Oct 18, 2018 at 21:17 Initial Consult Date 10/23/18 Type of Consult Cardiology Reason for Consultation Pause Requesting Provider: ADAM CLEMENS MD Date/Time of Note DATE: 10/31/18 TIME: 12:06 Exam/Review of Systems Vital Signs Vitals Vital Signs Date Temp Pulse Resp B/P (MAP) Pulse Ox O2 O2 Flow FiO2 Time Delivery Rate 10/31/18 98.5 87 18 113/81 99 Mechanical 11:40 (92) Ventilator 10/31/18 50 08:00 Intake and Output 10/30/18 10/30/18 10/31/18 1515:00 23:00 07:00 IntakeIntake Total 1150 ml 1330 ml BalanceBalance 1150 ml 1330 ml Exam Exam Review of Systems: CONSTITUTIONAL: No fevers, chills. PULMONARY: No sob CARDIOVASCULAR: No chest pain/palpitations GASTROINTESTINAL: No nausea/vomiting. GENITOURINARY: No hematuria/dysuria. MUSCULOSKELETAL: No myagias/arthalgias. PSYCHIATRIC: The patient denies depression. NEUROLOGIC: No weakness Constitutional: alert Psych: no complaints Head: normocephalic ENMT: mucosa pink and moist Neck: supple, jvd (9 cm water), other (trached) Respiratory: clear to auscultation Cardiovascular: regular rate and rhythm Gastrointestinal: soft, non-tender Musculoskeletal: muscle tone (normal) Extremities: edema (none) Neurological: other (No focal deficits) Labs Result Diagram: 10/28/18 0535 10/30/18 0525 Results 24hrs Laboratory Tests Test 10/30/18 21:00 10/31/18 10:59 Urine Color STRAW Urine Clarity CLEAR Urine pH 6.0 Urine Specific Reading 1.013 Urine Ketones NEGATIVE Urine Nitrite NEGATIVE Urine Bilirubin NEGATIVE Urine Urobilinogen NEGATIVE Urine Leukocyte Esterase TRACE A Urine Microscopic RBC 5 Urine Microscopic WBC 20 H Urine Bacteria FEW A Urine Yeast (Budding) FEW A Urine Hemoglobin NEGATIVE Urine Glucose NEGATIVE Urine Total Protein NEGATIVE Vancomycin Level Trough 10.8 Medications Medications Current Medications IV Flush (NS 3 ml) 3 ml PER PROTOCOL IV ; Start 10/18/18 at 21:30 Ondansetron HCl (Zofran Inj) 4 mg Q6H PRN IV NAUSEA/VOMITING; Start 10/18/18 at 21:30 Acetaminophen (Tylenol Tab) 650 mg Q6H PRN PO .PAIN 1-3 OR TEMP Last administered on 10/30/18 08:40; Admin Dose 650 MG; Start 10/18/18 at 21:30 Enoxaparin Sodium (Lovenox) 30 mg DAILY SC Last administered on 10/31/18 08:53; Admin Dose 30 MG; Start 10/19/18 at 09:00 Cefepime HCl 50 ml @ 100 mls/hr Q12 IVPB Last administered on 10/31/18 08:49; Admin Dose 100 MLS/HR; Start 10/19/18 at 09:00 Vancomycin HCl (Vanco Iv Per Pharmacy) VANCOMYCIN PER PHARMACY PER PROTOCOL XX ; Start 10/18/18 at 21:30 Famotidine (Pepcid) 20 mg Q12 PO Last administered on 10/31/18 08:49; Admin Dose 20 MG; Start 10/21/18 at 21:00 Morphine Sulfate (morphine) 6 mg Q4H PRN PO SEVERE PAIN LEVEL 7-10 Last administered on 10/31/18 04:41; Admin Dose 6 MG; Start 10/21/18 at 23:00 Tramadol HCl (Ultram) 50 mg Q6H PRN PO MODERATE PAIN LEVEL 4-6 Last administered on 10/27/18 14:29; Admin Dose 50 MG; Start 10/22/18 at 18:00 Dextrose/Sodium Chloride 1,000 ml @ 75 mls/hr [id number] IV Last administered on 10/31/18 02:53; Admin Dose 75 MLS/HR; Start 10/22/18 at 18:30 Midodrine (Proamatine) 5 mg Q8 PRN PO SBP<90 Last administered on 10/31/18 08:49; Admin Dose 5 MG; Start 10/23/18 at 14:30 Vancomycin HCl 100 ml @ 100 mls/hr Q12H IVPB Last administered on 10/31/18 00:06; Admin Dose 100 MLS/HR; Start 10/26/18 at 00:00 Acetylcysteine (Mucomyst) 2 ml Q6H RESP THERAPY NEB Last administered on 10/31/18 07:49; Admin Dose 2 ML; Start 10/28/18 at 16:30 Albuterol/ Ipratropium (Duoneb) 3 ml Q6H RESP THERAPY HHN Last administered on 10/31/18 07:49; Admin Dose 3 ML; Start 10/29/18 at 14:00 Docusate Sodium (Colace) 100 mg BID PO Last administered on 10/31/18 08:49; Admin Dose 100 MG; Start 10/29/18 at 11:00 Bisacodyl (Dulcolax) 10 mg DAILY PRN PO CONSTIPATION Last administered on 10/29/18 11:58; Admin Dose 10 MG; Start 10/29/18 at 11:00 Lorazepam (Ativan) 1 mg Q4 PRN IV AGITATION/ANXIETY Last administered on 10/30/18 02:06; Admin Dose 1 MG; Start 10/30/18 at 02:00 NOE SAWYER Oct 31, 2018 12:08
--- NOTE | 2018-10-31 12:40 | CONS ---
Consult Date/Type/Reason Admit Date/Time Oct 18, 2018 at 21:17 Initial Consult Date Type of Consult Pulmonary Requesting Provider: ADAM CLEMENS MD Date/Time of Note DATE: 10/31/18 TIME: 12:39 Subjective Patient stable. No new events. Objective Vital Signs Date Temp Pulse Resp B/P (MAP) Pulse Ox O2 O2 Flow FiO2 Time Delivery Rate 10/31/18 98.5 87 18 113/81 99 Mechanical 11:40 (92) Ventilator 10/31/18 50 08:00 Intake and Output 10/30/18 10/30/18 10/31/18 1515:00 23:00 07:00 IntakeIntake Total 1150 ml 1330 ml BalanceBalance 1150 ml 1330 ml Exam PHYSICAL EXAMINATION: GENERAL: Chronically ill appearing gentleman, comfortable at rest, in no acute distress. VITAL SIGNS: NECK: Trach site is clean and intact. CARDIAC: S1, S2. No added sounds or murmurs. CHEST: Diminished air entry bilaterally. ABDOMEN: Soft, nontender. No guarding or rebound. EXTREMITIES: No cyanosis, clubbing, edema. NEUROLOGIC: Generalized weakness. Vent Setting Ventilator Support Mode: AC Fraction of Inspired Oxygen pe: 50 Positive End Expiratory Pressu: 5.0 Results/Medications Result Diagram: 10/28/18 0535 10/30/18 0525 Results 24 hrs Laboratory Tests Test 10/30/18 21:00 10/31/18 10:59 Urine Color STRAW Urine Clarity CLEAR Urine pH 6.0 Urine Specific [place] 1.013 Urine Ketones NEGATIVE Urine Nitrite NEGATIVE Urine Bilirubin NEGATIVE Urine Urobilinogen NEGATIVE Urine Leukocyte Esterase TRACE A Urine Microscopic RBC 5 Urine Microscopic WBC 20 H Urine Bacteria FEW A Urine Yeast (Budding) FEW A Urine Hemoglobin NEGATIVE Urine Glucose NEGATIVE Urine Total Protein NEGATIVE Vancomycin Level Trough 10.8 Medications Current Medications IV Flush (NS 3 ml) 3 ml PER PROTOCOL IV ; Start 10/18/18 at 21:30 Ondansetron HCl (Zofran Inj) 4 mg Q6H PRN IV NAUSEA/VOMITING; Start 10/18/18 at 21:30 Acetaminophen (Tylenol Tab) 650 mg Q6H PRN PO .PAIN 1-3 OR TEMP Last administered on 10/30/18at 08:40; Admin Dose 650 MG; Start 10/18/18 at 21:30 Enoxaparin Sodium (Lovenox) 30 mg DAILY SC Last administered on 10/31/18 08:53; Admin Dose 30 MG; Start 10/19/18 at 09:00 Cefepime HCl 50 ml @ 100 mls/hr Q12 IVPB Last administered on 10/31/18 08:49; Admin Dose 100 MLS/HR; Start 10/19/18 at 09:00 Vancomycin HCl (Vanco Iv Per Pharmacy) VANCOMYCIN PER PHARMACY PER PROTOCOL XX ; Start 10/18/18 at 21:30 Famotidine (Pepcid) 20 mg Q12 PO Last administered on 10/31/18 08:49; Admin Dose 20 MG; Start 10/21/18 at 21:00 Morphine Sulfate (morphine) 6 mg Q4H PRN PO SEVERE PAIN LEVEL 7-10 Last administered on 10/31/18 04:41; Admin Dose 6 MG; Start 10/21/18 at 23:00 Tramadol HCl (Ultram) 50 mg Q6H PRN PO MODERATE PAIN LEVEL 4-6 Last administered on 10/27/18 14:29; Admin Dose 50 MG; Start 10/22/18 at 18:00 Dextrose/Sodium Chloride 1,000 ml @ 75 mls/hr [id number] IV Last administered on 10/31/18 02:53; Admin Dose 75 MLS/HR; Start 10/22/18 at 18:30 Midodrine (Proamatine) 5 mg Q8 PRN PO SBP<90 Last administered on 10/31/18 08:49; Admin Dose 5 MG; Start 10/23/18 at 14:30 Vancomycin HCl 100 ml @ 100 mls/hr Q12H IVPB Last administered on 10/31/18 12:29; Admin Dose 100 MLS/HR; Start 10/26/18 at 00:00 Acetylcysteine (Mucomyst) 2 ml Q6H RESP THERAPY NEB Last administered on 10/31/18 07:49; Admin Dose 2 ML; Start 10/28/18 at 16:30 Albuterol/ Ipratropium (Duoneb) 3 ml Q6H RESP THERAPY HHN Last administered on 10/31/18 07:49; Admin Dose 3 ML; Start 10/29/18 at 14:00 Docusate Sodium (Colace) 100 mg BID PO Last administered on 2/21/19at 08:49; Admin Dose 100 MG; Start 10/29/18 at 11:00 Bisacodyl (Dulcolax) 10 mg DAILY PRN PO CONSTIPATION Last administered on 10/29/18at 11:58; Admin Dose 10 MG; Start 10/29/18 at 11:00 Lorazepam (Ativan) 1 mg Q4 PRN IV AGITATION/ANXIETY Last administered on 10/30/18at 02:06; Admin Dose 1 MG; Start 10/30/18 at 02:00 Assessment/Plan Hospital Course (Demo Recall) IMPRESSION Left lung volume loss likely secondary to mucous plugging and possible aspiration component. Repeat chest x-ray in a.m. if not improving will require bronchoscopy Plan 1. Chest PT. 2. Mucomyst. 3. Current vent settings with PMV trials. 4. Aspiration precautions. 5. DVT and GI prophylaxis. Repeat chest x-ray in a.m. ROLANDO COLIN MD, [facility] Oct 31, 2018 12:40
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
[2018-10-31] MEDS: VANCOMYCIN 750 MG (PMX) 250 ML IVPB SCH (23:41)
[2018-11-01] VITALS (23 sets, daily range): BP systolic 91–111; BP diastolic 53–67; PULSE 80–114; RESP 17–22
[2018-11-01] MEDS: ACETYLCYSTEINE 20% 4 ML VIAL NEB SCH ×4 (01:03→19:17)
[2018-11-01] MEDS: ALBUTEROL/IPRATROPIUM (NEB) 3 ML AMP HHN SCH ×4 (01:03→19:17)
[2018-11-01] MEDS: morphine LIQ (10 MG/5 ML) CUP PO PRN ×3 (02:14→20:33)
[2018-11-01] MEDS: CEFEPIME 1GM/50 ML (PMX) 50 ML IVPB SCH ×2 (08:06→20:32)
[2018-11-01] MEDS: FAMOTIDINE 20 MG TAB PO SCH ×2 (08:07→20:33)
[2018-11-01] MEDS: DOCUSATE SODIUM 100 MG CAP PO SCH ×2 (08:07→20:32)
[2018-11-01] MEDS: ENOXAPARIN 30 MG/0.3 ML SYG SC SCH (08:09)
[2018-11-01] MEDS: BISACODYL (EC) 5 MG TAB PO PRN (09:17)
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
--- NOTE | 2018-11-01 12:13 | CONS ---
Assessment/Plan Assessment/Plan Hospital Course (Demo Recall) IMPRESSION: 1. Cardiac pause x approximately 5 seconds in the setting of a vented patient with no signs of significant conduction system disease by EKG. Likely primary pulmonary event with possible mucus plugging congestion of the patient's tracheostomy or sleep apnea. Continue to follow.- no recurrnece by tele. NL EF by echo EF 55. Neg trop x 3. NL TSH 2. Abnormal electrocardiogram, borderline anterior R-wave progression status post acute coronary syndrome, unlikely. 3. Chronic respiratory failure, status post trach. 4. Dysphagia, status post G-tube. 5. Chronic encephalopathy. 6. Left hemithorax whiteout; question mucous plugging, collapse. 7. Anemia. 8. Thrombocytosis. Recc: -Tele -Follow for recurrent significant pause -Contineu abx's and f/u cx data -Contineu midodrine BP support as necessary Consultation Date/Type/Reason Admit Date/Time Oct 18, 2018 at 21:17 Initial Consult Date 10/23/18 Type of Consult Cardiology Reason for Consultation Pause Requesting Provider: ADAM CLEMENS MD Date/Time of Note DATE: 11/01/18 TIME: 12:11 Exam/Review of Systems Vital Signs Vitals Vital Signs Date Temp Pulse Resp B/P (MAP) Pulse Ox O2 O2 Flow FiO2 Time Delivery Rate 11/01/18 103 19 99 50 11:04 11/01/18 98.6 91/53 (66) 07:58 10/31/18 Mechanical 15:45 Ventilator Intake and Output 10/31/18 10/31/18 11/01/18 1515:00 23:00 07:00 IntakeIntake Total 50 ml 1500 ml 1187 ml BalanceBalance 50 ml 1500 ml 1187 ml Exam Exam Review of Systems: CONSTITUTIONAL: No fevers, chills. PULMONARY: No sob CARDIOVASCULAR: No chest pain/palpitations GASTROINTESTINAL: No nausea/vomiting. GENITOURINARY: No hematuria/dysuria. MUSCULOSKELETAL: No myagias/arthalgias. PSYCHIATRIC: The patient denies depression. NEUROLOGIC: No weakness Constitutional: alert Psych: no complaints Head: normocephalic ENMT: mucosa pink and moist Neck: supple, jvd (9 cm water) Respiratory: diminished breath sounds (at bases/B) Cardiovascular: regular rate and rhythm Gastrointestinal: soft, non-tender Musculoskeletal: muscle tone Extremities: edema (none) Neurological: other (No focal deficits) Labs Result Diagram: 10/28/18 0535 11/01/18 0530 Results 24hrs Laboratory Tests Test 11/01/18 05:30 Blood Urea Nitrogen 19 Creatinine 0.77 Medications Medications Current Medications IV Flush (NS 3 ml) 3 ml PER PROTOCOL IV ; Start 10/18/18 at 21:30 Ondansetron HCl (Zofran Inj) 4 mg Q6H PRN IV NAUSEA/VOMITING; Start 10/18/18 at 21:30 Acetaminophen (Tylenol Tab) 650 mg Q6H PRN PO .PAIN 1-3 OR TEMP Last administered on 10/30/18 08:40; Admin Dose 650 MG; Start 10/18/18 at 21:30 Enoxaparin Sodium (Lovenox) 30 mg DAILY SC Last administered on 11/01/18 08:09; Admin Dose 30 MG; Start 10/19/18 at 09:00 Cefepime HCl 50 ml @ 100 mls/hr Q12 IVPB Last administered on 11/01/18 08:06; Admin Dose 100 MLS/HR; Start 10/19/18 at 09:00 Vancomycin HCl (Vanco Iv Per Pharmacy) VANCOMYCIN PER PHARMACY PER PROTOCOL XX ; Start 10/18/18 at 21:30 Famotidine (Pepcid) 20 mg Q12 PO Last administered on 11/01/18 08:07; Admin Dose 20 MG; Start 10/21/18 at 21:00 Morphine Sulfate (morphine) 6 mg Q4H PRN PO SEVERE PAIN LEVEL 7-10 Last administered on 11/01/18 02:14; Admin Dose 6 MG; Start 10/21/18 at 23:00 Tramadol HCl (Ultram) 50 mg Q6H PRN PO MODERATE PAIN LEVEL 4-6 Last administered on 10/27/18 14:29; Admin Dose 50 MG; Start 10/22/18 at 18:00 Dextrose/Sodium Chloride 1,000 ml @ 75 mls/hr [id number] IV Last administered on 10/31/18 19:27; Admin Dose 75 MLS/HR; Start 10/22/18 at 18:30 Midodrine (Proamatine) 5 mg Q8 PRN PO SBP<90 Last administered on 10/31/18 08:49; Admin Dose 5 MG; Start 10/23/18 at 14:30 Acetylcysteine (Mucomyst) 2 ml Q6H RESP THERAPY NEB Last administered on 11/01/18 07:47; Admin Dose 2 ML; Start 10/28/18 at 16:30 Albuterol/ Ipratropium (Duoneb) 3 ml Q6H RESP THERAPY HHN Last administered on 11/01/18 07:47; Admin Dose 3 ML; Start 10/29/18 at 14:00 Docusate Sodium (Colace) 100 mg BID PO Last administered on 11/01/18 08:07; Admin Dose 100 MG; Start 10/29/18 at 11:00 Bisacodyl (Dulcolax) 10 mg DAILY PRN PO CONSTIPATION Last administered on 11/01/18 09:17; Admin Dose 10 MG; Start 10/29/18 at 11:00 Lorazepam (Ativan) 1 mg Q4 PRN IV AGITATION/ANXIETY Last administered on 10/30/18 02:06; Admin Dose 1 MG; Start 10/30/18 at 02:00 Vancomycin/Sodium Chloride 250 ml @ 125 mls/hr Q12H IVPB Last administered on 10/31/18 23:41; Admin Dose 125 MLS/HR; Start 11/01/18 at 00:00 NOE SAWYER Nov 01, 2018 12:13
[2018-11-01] MEDS: DEXTROSE 5%-0.9% NACL 1,000 ML IV SCH ×2 (12:46→18:12)
[2018-11-01] MEDS: VANCOMYCIN 750 MG (PMX) 250 ML IVPB SCH (12:46)
--- NOTE | 2018-11-01 15:10 | CONS ---
Consult Date/Type/Reason Admit Date/Time Oct 18, 2018 at 21:17 Initial Consult Date Type of Consult Pulmonary Requesting Provider: ADAM CLEMENS MD Date/Time of Note DATE: 11/01/18 TIME: 15:08 Subjective Looks and feels better, cxr still shows left lung opacifications. Objective Vital Signs Date Temp Pulse Resp B/P (MAP) Pulse Ox O2 O2 Flow FiO2 Time Delivery Rate 11/01/18 58 18 98 50 13:44 11/01/18 98.8 97/67 (77) Mechanical 12:00 Ventilator Intake and Output 10/31/18 10/31/18 11/01/18 1515:00 23:00 07:00 IntakeIntake Total 50 ml 1500 ml 1187 ml BalanceBalance 50 ml 1500 ml 1187 ml Exam PHYSICAL EXAMINATION: GENERAL: Chronically ill appearing gentleman, comfortable at rest, in no acute distress. VITAL SIGNS: NECK: Trach site is clean and intact. CARDIAC: S1, S2. No added sounds or murmurs. CHEST: Diminished air entry bilaterally. ABDOMEN: Soft, nontender. No guarding or rebound. EXTREMITIES: No cyanosis, clubbing, edema. NEUROLOGIC: Generalized weakness. Vent Setting Ventilator Support Mode: AC Fraction of Inspired Oxygen pe: 50 Positive End Expiratory Pressu: 5.0 Results/Medications Result Diagram: 10/28/18 0535 11/01/18 0530 Results 24 hrs Laboratory Tests Test 11/01/18 05:30 Blood Urea Nitrogen 19 Creatinine 0.77 Medications Current Medications IV Flush (NS 3 ml) 3 ml PER PROTOCOL IV ; Start 10/18/18 at 21:30 Ondansetron HCl (Zofran Inj) 4 mg Q6H PRN IV NAUSEA/VOMITING; Start 10/18/18 at 21:30 Acetaminophen (Tylenol Tab) 650 mg Q6H PRN PO .PAIN 1-3 OR TEMP Last administered on 10/30/18at 08:40; Admin Dose 650 MG; Start 10/18/18 at 21:30 Enoxaparin Sodium (Lovenox) 30 mg DAILY SC Last administered on 11/01/18at 08:09 ; Admin Dose 30 MG; Start 10/19/18 at 09:00 Cefepime HCl 50 ml @ 100 mls/hr Q12 IVPB Last administered on 11/01/18at 08:06; Admin Dose 100 MLS/HR; Start 10/19/18 at 09:00 Vancomycin HCl (Vanco Iv Per Pharmacy) VANCOMYCIN PER PHARMACY PER PROTOCOL XX ; Start 10/18/18 at 21:30 Famotidine (Pepcid) 20 mg Q12 PO Last administered on 11/01/18 08:07; Admin Dose 20 MG; Start 10/21/18 at 21:00 Morphine Sulfate (morphine) 6 mg Q4H PRN PO SEVERE PAIN LEVEL 7-10 Last administered on 11/01/18 02:14; Admin Dose 6 MG; Start 10/21/18 at 23:00 Tramadol HCl (Ultram) 50 mg Q6H PRN PO MODERATE PAIN LEVEL 4-6 Last administered on 10/27/18 14:29; Admin Dose 50 MG; Start 10/22/18 at 18:00 Dextrose/Sodium Chloride 1,000 ml @ 75 mls/hr [id number] IV Last administered on 11/01/18 12:46; Admin Dose 75 MLS/HR; Start 10/22/18 at 18:30 Midodrine (Proamatine) 5 mg Q8 PRN PO SBP<90 Last administered on 10/31/18at 0 8:49; Admin Dose 5 MG; Start 10/23/18 at 14:30 Acetylcysteine (Mucomyst) 2 ml Q6H RESP THERAPY NEB Last administered on 11/01/18 13:39; Admin Dose 2 ML; Start 10/28/18 at 16:30 Albuterol/ Ipratropium (Duoneb) 3 ml Q6H RESP THERAPY HHN Last administered on 11/01/18 13:39; Admin Dose 3 ML; Start 10/29/18 at 14:00 Docusate Sodium (Colace) 100 mg BID PO Last administered on 11/01/18 08:07; Admin Dose 100 MG; Start 10/29/18 at 11:00 Bisacodyl (Dulcolax) 10 mg DAILY PRN PO CONSTIPATION Last administered on 11/01/18 09:17; Admin Dose 10 MG; Start 10/29/18 at 11:00 Lorazepam (Ativan) 1 mg Q4 PRN IV AGITATION/ANXIETY Last administered on 10/30/18 02:06; Admin Dose 1 MG; Start 10/30/18 at 02:00 Vancomycin/Sodium Chloride 250 ml @ 125 mls/hr Q12H IVPB Last administered on 11/01/18at 12:46; Admin Dose 125 MLS/HR; Start 11/01/18 at 00:00 Assessment/Plan Hospital Course (Demo Recall) IMPRESSION Left lung volume loss likely secondary to mucous plugging and possible aspiration component. Repeat chest x-ray in a.m. if not improving will require bronchoscopy Plan 1. Chest PT. percussion vest qid. 2. Mucomyst. 3. Current vent settings with PMV trials. 4. Aspiration precautions. 5. DVT and GI prophylaxis. Repeat chest x-ray in a.m. ROLANDO COLIN MD, [facility] Nov 01, 2018 15:10
[2018-11-01] MEDS ORDERED: FLUCONAZOLE 200 MG (PMX) 100 ML IVPB ONE (17:30)
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
[2018-11-02] VITALS (20 sets, daily range): BP systolic 97–116; BP diastolic 55–85; PULSE 78–110; RESP 18–26
[2018-11-02] MEDS: ALBUTEROL/IPRATROPIUM (NEB) 3 ML AMP HHN SCH ×4 (01:23→19:36)
[2018-11-02] MEDS: ACETYLCYSTEINE 20% 4 ML VIAL NEB SCH ×4 (01:24→19:36)
[2018-11-02] MEDS: DEXTROSE 5%-0.9% NACL 1,000 ML IV SCH ×2 (07:14→20:41)
[2018-11-02] MEDS: CEFEPIME 1GM/50 ML (PMX) 50 ML IVPB SCH ×2 (09:13→20:31)
[2018-11-02] MEDS: FLUCONAZOLE 100 MG TAB GTB SCH (09:13)
[2018-11-02] MEDS: FAMOTIDINE 20 MG TAB PO SCH ×2 (09:13→20:31)
[2018-11-02] MEDS: DOCUSATE SODIUM 100 MG CAP PO SCH ×2 (09:13→20:31)
[2018-11-02] MEDS: BISACODYL (EC) 5 MG TAB PO PRN (09:13)
[2018-11-02] MEDS: ENOXAPARIN 30 MG/0.3 ML SYG SC SCH (09:22)
[2018-11-02] MEDS: ACETAMINOPHEN 325 MG TAB PO PRN (10:33)
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
--- NOTE | 2018-11-02 11:47 | CONS ---
Consult Date/Type/Reason Admit Date/Time Oct 18, 2018 at 21:17 Initial Consult Date Type of Consult Pulmonary Requesting Provider: ADAM CLEMENS MD Date/Time of Note DATE: 11/02/18 TIME: 11:46 Subjective Remains stable. No new events moderate secretions continues chest PT via percussion bed. Objective Vital Signs Date Temp Pulse Resp B/P (MAP) Pulse Ox O2 O2 Flow FiO2 Time Delivery Rate 11/02/18 96 20 100 45 11:25 11/02/18 97/59 (72) 07:39 11/02/18 97.9 03:52 11/01/18 Mechanical 12:00 Ventilator Intake and Output 11/01/18 11/01/18 11/02/18 1515:00 23:00 07:00 IntakeIntake Total 250 ml 1925 ml BalanceBalance 250 ml 1925 ml Exam PHYSICAL EXAMINATION: GENERAL: Chronically ill appearing gentleman, comfortable at rest, in no acute distress. VITAL SIGNS: NECK: Trach site is clean and intact. CARDIAC: S1, S2. No added sounds or murmurs. CHEST: Diminished air entry bilaterally. ABDOMEN: Soft, nontender. No guarding or rebound. EXTREMITIES: No cyanosis, clubbing, edema. NEUROLOGIC: Generalized weakness. Vent Setting Ventilator Support Mode: AC, SPONT Fraction of Inspired Oxygen pe: 45 Positive End Expiratory Pressu: 5.0 Results/Medications Result Diagram: 11/01/18 0530 Medications Current Medications IV Flush (NS 3 ml) 3 ml PER PROTOCOL IV ; Start 10/18/18 at 21:30 Ondansetron HCl (Zofran Inj) 4 mg Q6H PRN IV NAUSEA/VOMITING; Start 10/18/18 at 21:30 Acetaminophen (Tylenol Tab) 650 mg Q6H PRN PO .PAIN 1-3 OR TEMP Last administered on 11/02/18at 10:33; Admin Dose 650 MG; Start 10/18/18 at 21:30 Enoxaparin Sodium (Lovenox) 30 mg DAILY SC Last administered on 11/02/18at 09:22; Admin Dose 30 MG; Start 10/19/18 at 09:00 Cefepime HCl 50 ml @ 100 mls/hr Q12 IVPB Last administered on 11/02/18at 09:13; Admin Dose 100 MLS/HR; Start 10/19/18 at 09:00 Famotidine (Pepcid) 20 mg Q12 PO Last administered on 11/02/18 09:13; Admin Dose 20 MG; Start 10/21/18 at 21:00 Morphine Sulfate (morphine) 6 mg Q4H PRN PO SEVERE PAIN LEVEL 7-10 Last administered on 11/01/18 20:33; Admin Dose 6 MG; Start 10/21/18 at 23:00 Tramadol HCl (Ultram) 50 mg Q6H PRN PO MODERATE PAIN LEVEL 4-6 Last administered on 10/27/18 14:29; Admin Dose 50 MG; Start 10/22/18 at 18:00 Dextrose/Sodium Chloride 1,000 ml @ 75 mls/hr [id number] IV Last administered on 11/02/18 07:14; Admin Dose 75 MLS/HR; Start 10/22/18 at 18:30 Midodrine (Proamatine) 5 mg Q8 PRN PO SBP<90 Last administered on 10/31/18 08:49; Admin Dose 5 MG; Start 10/23/18 at 14:30 Acetylcysteine (Mucomyst) 2 ml Q6H RESP THERAPY NEB Last administered on 11/02/18 07:56; Admin Dose 2 ML; Start 10/28/18 at 16:30 Albuterol/ Ipratropium (Duoneb) 3 ml Q6H RESP THERAPY HHN Last administered on 11/02/18 07:56; Admin Dose 3 ML; Start 10/29/18 at 14:00 Docusate Sodium (Colace) 100 mg BID PO Last administered on 11/02/18 09:13; Admin Dose 100 MG; Start 10/29/18 at 11:00 Bisacodyl (Dulcolax) 10 mg DAILY PRN PO CONSTIPATION Last administered on 11/02/18 09:13; Admin Dose 10 MG; Start 10/29/18 at 11:00 Lorazepam (Ativan) 1 mg Q4 PRN IV AGITATION/ANXIETY Last administered on 10/30/18 02:06; Admin Dose 1 MG; Start 10/30/18 at 02:00 Fluconazole (Diflucan) 100 mg DAILY GTB Last administered on 11/02/18 09:13; Admin Dose 100 MG; Start 11/02/18 at 09:00 Assessment/Plan Hospital Course (Demo Recall) IMPRESSION Left lung volume loss likely secondary to mucous plugging and possible aspiration component. Repeat chest x-ray in a.m. if not improving will require bronchoscopy Plan 1. Chest PT. percussion 2. Mucomyst. 3. Current vent settings with PMV trials. 4. Aspiration precautions. 5. DVT and GI prophylaxis. Repeat chest x-ray in a.m. ROLANDO COLIN MD, [facility] Nov 02, 2018 11:47
--- NOTE | 2018-11-02 12:33 | CONS ---
Assessment/Plan Assessment/Plan Hospital Course (Demo Recall) IMPRESSION: 1. Cardiac pause x approximately 5 seconds in the setting of a vented patient with no signs of significant conduction system disease by EKG. Likely primary pulmonary event with possible mucus plugging congestion of the patient's tracheostomy or sleep apnea. Continue to follow.- no recurrenece by tele. NL EF by echo EF 55. Neg trop x 3. NL TSH 2. Abnormal electrocardiogram, borderline anterior R-wave progression status post acute coronary syndrome, unlikely. 3. Chronic respiratory failure, status post trach. 4. Dysphagia, status post G-tube. 5. Chronic encephalopathy. 6. Left hemithorax whiteout; question mucous plugging, collapse. 7. Anemia. 8. Thrombocytosis. Recc: -Tele -Follow for recurrent significant pause -Contineu abx's and f/u cx data -Contineu midodrine BP support as necessary Consultation Date/Type/Reason Admit Date/Time Oct 18, 2018 at 21:17 Initial Consult Date 10/23/18 Type of Consult Cardiology Reason for Consultation Pause Requesting Provider: ADAM CLEMENS MD Date/Time of Note DATE: 11/02/18 TIME: 12:32 Exam/Review of Systems Vital Signs Vitals Vital Signs Date Temp Pulse Resp B/P (MAP) Pulse Ox O2 O2 Flow FiO2 Time Delivery Rate 11/02/18 96 20 100 45 11:25 11/02/18 97/59 (72) 07:39 11/02/18 97.9 03:52 11/01/18 Mechanical 12:00 Ventilator Intake and Output 11/01/18 11/01/18 11/02/18 1515:00 23:00 07:00 IntakeIntake Total 250 ml 1925 ml BalanceBalance 250 ml 1925 ml Exam Exam Review of Systems: CONSTITUTIONAL: No fevers, chills. PULMONARY: No sob CARDIOVASCULAR: No chest pain/palpitations GASTROINTESTINAL: No nausea/vomiting. GENITOURINARY: No hematuria/dysuria. MUSCULOSKELETAL: No myagias/arthalgias. PSYCHIATRIC: The patient denies depression. NEUROLOGIC: No weakness Constitutional: alert Psych: no complaints Head: normocephalic ENMT: mucosa pink and moist Neck: supple, jvd (9 cm water) Respiratory: diminished breath sounds (at bases/B) Cardiovascular: regular rate and rhythm Gastrointestinal: soft, non-tender Musculoskeletal: muscle tone (normal) Extremities: edema (no focal deficits) Labs Result Diagram: 11/01/18 0530 Medications Medications Current Medications IV Flush (NS 3 ml) 3 ml PER PROTOCOL IV ; Start 10/18/18 at 21:30 Ondansetron HCl (Zofran Inj) 4 mg Q6H PRN IV NAUSEA/VOMITING; Start 10/18/18 at 21:30 Acetaminophen (Tylenol Tab) 650 mg Q6H PRN PO .PAIN 1-3 OR TEMP Last admini stered on 11/02/18 10:33; Admin Dose 650 MG; Start 10/18/18 at 21:30 Enoxaparin Sodium (Lovenox) 30 mg DAILY SC Last administered on 11/02/18 09:22; Admin Dose 30 MG; Start 10/19/18 at 09:00 Cefepime HCl 50 ml @ 100 mls/hr Q12 IVPB Last administered on 11/02/18 09:13; Admin Dose 100 MLS/HR; Start 10/19/18 at 09:00 Famotidine (Pepcid) 20 mg Q12 PO Last administered on 11/02/18 09:13; Admin Dose 20 MG; Start 10/21/18 at 21:00 Morphine Sulfate (morphine) 6 mg Q4H PRN PO SEVERE PAIN LEVEL 7-10 Last administered on 11/01/18 20:33; Admin Dose 6 MG; Start 10/21/18 at 23:00 Tramadol HCl (Ultram) 50 mg Q6H PRN PO MODERATE PAIN LEVEL 4-6 Last administered on 10/27/18 14:29; Admin Dose 50 MG; Start 10/22/18 at 18:00 Dextrose/Sodium Chloride 1,000 ml @ 75 mls/hr [id number] IV Last administered on 11/02/18 07:14; Admin Dose 75 MLS/HR; Start 10/22/18 at 18:30 Midodrine (Proamatine) 5 mg Q8 PRN PO SBP<90 Last administered on 10/31/18 08:49; Admin Dose 5 MG; Start 10/23/18 at 14:30 Acetylcysteine (Mucomyst) 2 ml Q6H RESP THERAPY NEB Last administered on 11/02/18 07:56; Admin Dose 2 ML; Start 10/28/18 at 16:30 Albuterol/ Ipratropium (Duoneb) 3 ml Q6H RESP THERAPY HHN Last administered on 11/02/18 07:56; Admin Dose 3 ML; Start 10/29/18 at 14:00 Docusate Sodium (Colace) 100 mg BID PO Last administered on 11/02/18 09:13; Admin Dose 100 MG; Start 10/29/18 at 11:00 Bisacodyl (Dulcolax) 10 mg DAILY PRN PO CONSTIPATION Last administered on 11/02/18 09:13; Admin Dose 10 MG; Start 10/29/18 at 11:00 Lorazepam (Ativan) 1 mg Q4 PRN IV AGITATION/ANXIETY Last administered on 10/30/18 02:06; Admin Dose 1 MG; Start 10/30/18 at 02:00 Fluconazole (Diflucan) 100 mg DAILY GTB Last administered on 11/02/18 09:13; Admin Dose 100 MG; Start 11/02/18 at 09:00 NOE SAWYER Nov 02, 2018 12:33
[2018-11-02] MEDS: morphine LIQ (10 MG/5 ML) CUP PO PRN (19:08)
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
[2018-11-03] VITALS (19 sets, daily range): BP systolic 105–148; BP diastolic 59–92; PULSE 64–114; RESP 16–35
[2018-11-03] MEDS: morphine LIQ (10 MG/5 ML) CUP PO PRN (00:20)
[2018-11-03] MEDS: ALBUTEROL/IPRATROPIUM (NEB) 3 ML AMP HHN SCH ×4 (01:21→19:30)
[2018-11-03] MEDS: ACETYLCYSTEINE 20% 4 ML VIAL NEB SCH ×4 (01:32→19:31)
[2018-11-03] MEDS: traMADol 50 MG TAB PO PRN ×3 (09:18→23:05)
[2018-11-03] MEDS: CEFEPIME 1GM/50 ML (PMX) 50 ML IVPB SCH (09:18)
[2018-11-03] MEDS: FLUCONAZOLE 100 MG TAB GTB SCH (09:18)
[2018-11-03] MEDS: DOCUSATE SODIUM 100 MG CAP PO SCH ×2 (09:18→21:37)
[2018-11-03] MEDS: FAMOTIDINE 20 MG TAB PO SCH ×2 (09:21→21:37)
[2018-11-03] MEDS: ENOXAPARIN 30 MG/0.3 ML SYG SC SCH (09:32)
[2018-11-03] MEDS: DEXTROSE 5%-0.9% NACL 1,000 ML IV SCH ×2 (10:30→23:50)
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
--- NOTE | 2018-11-03 11:33 | CONS ---
Assessment/Plan Assessment/Plan Hospital Course (Demo Recall) IMPRESSION: 1. Cardiac pause x approximately 5 seconds in the setting of a vented patient with no signs of significant conduction system disease by EKG. Likely primary pulmonary event with possible mucus plugging congestion of the patient's tracheostomy or sleep apnea. Continue to follow.- no recurrenece by tele. NL EF by echo EF 55. Neg trop x 3. NL TSH 2. Abnormal electrocardiogram, borderline anterior R-wave progression status post acute coronary syndrome, unlikely. 3. Chronic respiratory failure, status post trach. 4. Dysphagia, status post G-tube. 5. Chronic encephalopathy. 6. Left hemithorax whiteout; question mucous plugging, collapse. 7. Anemia. 8. Thrombocytosis. Recc: -Tele -Follow for recurrent significant pause -Contineu abx's and f/u cx data -Contineu midodrine BP support as necessary and follow HR clsoely -IVP PRN BB for significantly elevated HR's Consultation Date/Type/Reason Admit Date/Time Oct 18, 2018 at 21:17 Initial Consult Date 10/23/18 Type of Consult Cardiology Reason for Consultation arrythmia Requesting Provider: ADAM CLEMENS MD Date/Time of Note DATE: 11/03/18 TIME: 11:30 Exam/Review of Systems Vital Signs Vitals Vital Signs Date Temp Pulse Resp B/P (MAP) Pulse Ox O2 O2 Flow FiO2 Time Delivery Rate 11/03/18 108 21 99 45 11:10 11/03/18 98.7 132/84 07:52 (100) 11/01/18 Mechanical 12:00 Ventilator Intake and Output 11/02/18 11/02/18 11/03/18 1515:00 23:00 07:00 IntakeIntake Total 2500 ml BalanceBalance 2500 ml Exam Exam Review of Systems: CONSTITUTIONAL: No fevers, chills. PULMONARY: trached CARDIOVASCULAR: No chest pain/palpitations GASTROINTESTINAL: No nausea/vomiting. GENITOURINARY: No hematuria/dysuria. MUSCULOSKELETAL: No myagias/arthalgias. PSYCHIATRIC: The patient denies depression. NEUROLOGIC: No weakness Constitutional: alert Psych: no complaints Head: normocephalic ENMT: mucosa pink and moist Neck: supple, jvd (9 cm water) Respiratory: clear to auscultation Cardiovascular: regular rate and rhythm Gastrointestinal: soft, non-tender Musculoskeletal: muscle weakness (generalized) Labs Result Diagram: 11/03/18 0515 11/01/18 0530 Results 24hrs Laboratory Tests Test 11/03/18 05:15 White Blood Count 9.5 # Red Blood Count 3.57 L Hemoglobin 9.9 L Hematocrit 33.6 L Mean Corpuscular Volume 94.1 Mean Corpuscular Hemoglobin 27.7 L Mean Corpuscular Hemoglobin Concent 29.5 L Red Cell Distribution Width 14.5 Platelet Count 381 Mean Platelet Volume 9.5 Immature Granulocytes % 0.400 Neutrophils % 72.4 Lymphocytes % 17.5 Monocytes % 6.2 Eosinophils % 3.2 Basophils % 0.3 Nucleated Red Blood Cells % 0.0 Immature Granulocytes # 0.040 H Neutrophils # 6.9 Lymphocytes # 1.7 Monocytes # 0.6 Eosinophils # 0.3 Basophils # 0.0 Nucleated Red Blood Cells # 0.0 Medications Medications Current Medications IV Flush (NS 3 ml) 3 ml PER PROTOCOL IV ; Start 10/18/18 at 21:30 Ondansetron HCl (Zofran Inj) 4 mg Q6H PRN IV NAUSEA/VOMITING; Start 10/18/18 at 21:30 Acetaminophen (Tylenol Tab) 650 mg Q6H PRN PO .PAIN 1-3 OR TEMP Last administered on 11/02/18at 10:33; Admin Dose 650 MG; Start 10/18/18 at 21:30 Enoxaparin Sodium (Lovenox) 30 mg DAILY SC Last administered on 11/03/18 09:32; Admin Dose 30 MG; Start 10/19/18 at 09:00 Cefepime HCl 50 ml @ 100 mls/hr Q12 IVPB Last administered on 11/03/18 09:18; Admin Dose 100 MLS/HR; Start 10/19/18 at 09:00 Famotidine (Pepcid) 20 mg Q12 PO Last administered on 11/03/18 09:21; Admin Dose 20 MG; Start 10/21/18 at 21:00 Morphine Sulfate (morphine) 6 mg Q4H PRN PO SEVERE PAIN LEVEL 7-10 Last administered on 11/03/18 00:20; Admin Dose 6 MG; Start 10/21/18 at 23:00 Tramadol HCl (Ultram) 50 mg Q6H PRN PO MODERATE PAIN LEVEL 4-6 Last administered on 11/03/18 09:18; Admin Dose 50 MG; Start 10/22/18 at 18:00 Dextrose/Sodium Chloride 1,000 ml @ 75 mls/hr [id number] IV Last administered on 11/02/18 20:41; Admin Dose 75 MLS/HR; Start 10/22/18 at 18:30 Midodrine (Proamatine) 5 mg Q8 PRN PO SBP<90 Last administered on 10/31/18 08:49; Admin Dose 5 MG; Start 10/23/18 at 14:30 Acetylcysteine (Mucomyst) 2 ml Q6H RESP THERAPY NEB Last administered on 11/03/18 08:00; Admin Dose 2 ML; Start 10/28/18 at 16:30 Albuterol/ Ipratropium (Duoneb) 3 ml Q6H RESP THERAPY HHN Last administered on 11/03/18 07:59; Admin Dose 3 ML; Start 10/29/18 at 14:00 Docusate Sodium (Colace) 100 mg BID PO Last administered on 11/03/18 09:18; Admin Dose 100 MG; Start 10/29/18 at 11:00 Bisacodyl (Dulcolax) 10 mg DAILY PRN PO CONSTIPATION Last administered on 11/02/18 09:13; Admin Dose 10 MG; Start 10/29/18 at 11:00 Lorazepam (Ativan) 1 mg Q4 PRN IV AGITATION/ANXIETY Last administered on 10/30/18 02:06; Admin Dose 1 MG; Start 10/30/18 at 02:00 Fluconazole (Diflucan) 100 mg DAILY GTB Last administered on 11/03/18 09:18; Admin Dose 100 MG; Start 11/02/18 at 09:00 NOE SAWYER Nov 03, 2018 11:33
[2018-11-03] MEDS ORDERED: METOPROLOL 5 MG INJ IV PRN (12:00)
--- NOTE | 2018-11-03 12:22 | CONS ---
Consult Date/Type/Reason Admit Date/Time Oct 18, 2018 at 21:17 Initial Consult Date Type of Consult Pulmonary Requesting Provider: ADAM CLEMENS MD Date/Time of Note DATE: 11/03/18 TIME: 12:21 Subjective Better with improved aeration left lung. Objective Vital Signs Date Temp Pulse Resp B/P (MAP) Pulse Ox O2 O2 Flow FiO2 Time Delivery Rate 11/03/18 108 21 99 45 11:10 11/03/18 98.7 132/84 07:52 (100) 11/01/18 Mechanical 12:00 Ventilator Intake and Output 11/02/18 11/02/18 11/03/18 1414:59 22:59 06:59 IntakeIntake Total 2500 ml BalanceBalance 2500 ml Exam PHYSICAL EXAMINATION: GENERAL: Chronically ill appearing gentleman, comfortable at rest, in no acute distress. VITAL SIGNS: NECK: Trach site is clean and intact. CARDIAC: S1, S2. No added sounds or murmurs. CHEST: Diminished air entry bilaterally. ABDOMEN: Soft, nontender. No guarding or rebound. EXTREMITIES: No cyanosis, clubbing, edema. NEUROLOGIC: Generalized weakness. Vent Setting Ventilator Support Mode: AC, SPONT Fraction of Inspired Oxygen pe: 45 Positive End Expiratory Pressu: 5.0 Results/Medications Result Diagram: 11/03/18 0515 11/01/18 0530 Results 24 hrs Laboratory Tests Test 11/03/18 05:15 White Blood Count 9.5 # Red Blood Count 3.57 L Hemoglobin 9.9 L Hematocrit 33.6 L Mean Corpuscular Volume 94.1 Mean Corpuscular Hemoglobin 27.7 L Mean Corpuscular Hemoglobin Concent 29.5 L Red Cell Distribution Width 14.5 Platelet Count 381 Mean Platelet Volume 9.5 Immature Granulocytes % 0.400 Neutrophils % 72.4 Lymphocytes % 17.5 Monocytes % 6.2 Eosinophils % 3.2 Basophils % 0.3 Nucleated Red Blood Cells % 0.0 Immature Granulocytes # 0.040 H Neutrophils # 6.9 Lymphocytes # 1.7 Monocytes # 0.6 Eosinophils # 0.3 Basophils # 0.0 Nucleated Red Blood Cells # 0.0 Medications Current Medications IV Flush (NS 3 ml) 3 ml PER PROTOCOL IV ; Start 10/18/18 at 21:30 Ondansetron HCl (Zofran Inj) 4 mg Q6H PRN IV NAUSEA/VOMITING; Start 10/18/18 at 21:30 Acetaminophen (Tylenol Tab) 650 mg Q6H PRN PO .PAIN 1-3 OR TEMP Last administered on 11/02/18 10:33; Admin Dose 650 MG; Start 10/18/18 at 21:30 Enoxaparin Sodium (Lovenox) 30 mg DAILY SC Last administered on 11/03/18 09:32; Admin Dose 30 MG; Start 10/19/18 at 09:00 Cefepime HCl 50 ml @ 100 mls/hr Q12 IVPB Last administered on 11/03/18 09:18; Admin Dose 100 MLS/HR; Start 10/19/18 at 09:00 Famotidine (Pepcid) 20 mg Q12 PO Last administered on 11/03/18 09:21; Admin Dose 20 MG; Start 10/21/18 at 21:00 Morphine Sulfate (morphine) 6 mg Q4H PRN PO SEVERE PAIN LEVEL 7-10 Last administered on 11/03/18 00:20; Admin Dose 6 MG; Start 10/21/18 at 23:00 Tramadol HCl (Ultram) 50 mg Q6H PRN PO MODERATE PAIN LEVEL 4-6 Last admini stered on 11/03/18 09:18; Admin Dose 50 MG; Start 10/22/18 at 18:00 Dextrose/Sodium Chloride 1,000 ml @ 75 mls/hr [id number] IV Last administered on 11/02/18 20:41; Admin Dose 75 MLS/HR; Start 10/22/18 at 18:30 Midodrine (Proamatine) 5 mg Q8 PRN PO SBP<90 Last administered on 10/31/18 08:49; Admin Dose 5 MG; Start 10/23/18 at 14:30 Acetylcysteine (Mucomyst) 2 ml Q6H RESP THERAPY NEB Last administered on 11/03/18 08:00; Admin Dose 2 ML; Start 10/28/18 at 16:30 Albuterol/ Ipratropium (Duoneb) 3 ml Q6H RESP THERAPY HHN Last administered on 11/03/18 07:59; Admin Dose 3 ML; Start 10/29/18 at 14:00 Docusate Sodium (Colace) 100 mg BID PO Last administered on 11/03/18 09:18; Admin Dose 100 MG; Start 10/29/18 at 11:00 Bisacodyl (Dulcolax) 10 mg DAILY PRN PO CONSTIPATION Last administered on 11/02/18 09:13; Admin Dose 10 MG; Start 10/29/18 at 11:00 Lorazepam (Ativan) 1 mg Q4 PRN IV AGITATION/ANXIETY Last administered on 10/30/18 02:06; Admin Dose 1 MG; Start 10/30/18 at 02:00 Fluconazole (Diflucan) 100 mg DAILY GTB Last administered on 11/03/18 09:18; Admin Dose 100 MG; Start 11/02/18 at 09:00 Metoprolol Tartrate (Lopressor) 5 mg Q4H PRN IV HR>110 Hold SBP<100; Start 11/03/18 at 12:00 Assessment/Plan Hospital Course (Demo Recall) IMPRESSION Left lung volume loss likely secondary to mucous plugging and possible aspiration component. Repeat chest x-ray in a.m. if not improving will require bronchoscopy Plan 1. Chest PT. percussion 2. Mucomyst. 3. Current vent settings with PMV trials. 4. Aspiration precautions. 5. DVT and GI prophylaxis. dc planning ok from pulm from standpoint. ROLANDO COLIN MD, [facility] Nov 03, 2018 12:22
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
[2018-11-03] MEDS: CEFTAZIDIME 1GM/50 ML (PMX) 50 ML IVPB SCH ×2 (15:26→21:37)
[2018-11-04] VITALS (24 sets, daily range): BP systolic 87–129; BP diastolic 53–86; PULSE 63–121; RESP 18–22
[2018-11-04] MEDS: ALBUTEROL/IPRATROPIUM (NEB) 3 ML AMP HHN SCH ×4 (02:16→21:24)
[2018-11-04] MEDS: ACETYLCYSTEINE 20% 4 ML VIAL NEB SCH ×4 (02:16→21:34)
[2018-11-04] MEDS: DEXTROSE 5%-0.9% NACL 1,000 ML IV SCH ×2 (03:05→23:08)
[2018-11-04] MEDS: CEFTAZIDIME 1GM/50 ML (PMX) 50 ML IVPB SCH ×2 (05:29→14:39)
[2018-11-04] MEDS: DOCUSATE SODIUM 100 MG CAP PO SCH ×2 (08:26→21:54)
[2018-11-04] MEDS: FAMOTIDINE 20 MG TAB PO SCH ×2 (08:26→21:54)
[2018-11-04] MEDS: ENOXAPARIN 30 MG/0.3 ML SYG SC SCH (08:27)
[2018-11-04] MEDS: FLUCONAZOLE 100 MG TAB GTB SCH (08:27)
[2018-11-04] MEDS: traMADol 50 MG TAB PO PRN ×2 (10:35→21:55)
--- NOTE | 2018-11-04 11:40 | CONS ---
Assessment/Plan Assessment/Plan Hospital Course (Demo Recall) IMPRESSION: 1. Cardiac pause x approximately 5 seconds in the setting of a vented patient with no signs of significant conduction system disease by EKG. Likely primary pulmonary event with possible mucus plugging congestion of the patient's tracheostomy or sleep apnea. Continue to follow.- no recurrence by tele. NL EF by echo EF 55. Neg trop x 3. NL TSH 2. Abnormal electrocardiogram, borderline anterior R-wave progression status post acute coronary syndrome, unlikely. 3. Chronic respiratory failure, status post trach. 4. Dysphagia, status post G-tube. 5. Chronic encephalopathy. 6. Left hemithorax whiteout; question mucous plugging, collapse. 7. Anemia. 8. Thrombocytosis. Recc: -Tele -Follow for recurrent significant pause which I have not seen -Contineu abx's and f/u cx data -Contineu midodrine BP support as necessary and follow HR clsoely -IVP PRN BB for significantly elevated HR's Consultation Date/Type/Reason Admit Date/Time Oct 18, 2018 at 21:17 Initial Consult Date 10/23/18 Type of Consult Cardiology Reason for Consultation tachycardia Requesting Provider: ADAM CLEMENS MD Date/Time of Note DATE: 11/04/18 TIME: 11:39 Exam/Review of Systems Vital Signs Vitals Vital Signs Date Temp Pulse Resp B/P (MAP) Pulse Ox O2 O2 Flow FiO2 Time Delivery Rate 11/04/18 112 09:07 11/04/18 98.2 20 126/82 98 Mechanical 08:03 (97) Ventilator 11/04/18 50 08:00 Intake and Output 11/03/18 11/03/18 11/04/18 1515:00 23:00 07:00 IntakeIntake Total 50 ml 1700 ml 675 ml BalanceBalance 50 ml 1700 ml 675 ml Exam Exam Review of Systems: CONSTITUTIONAL: No fevers, chills. PULMONARY: No sob CARDIOVASCULAR: No chest pain/palpitations GASTROINTESTINAL: No nausea/vomiting. GENITOURINARY: No hematuria/dysuria. MUSCULOSKELETAL: No myagias/arthalgias. PSYCHIATRIC: The patient denies depression. NEUROLOGIC: No weakness Constitutional: alert Psych: no complaints ENMT: mucosa pink and moist Neck: supple, jvd (9 cm water) Respiratory: diminished breath sounds (at bases/B) Cardiovascular: regular rate and rhythm Gastrointestinal: soft, non-tender Musculoskeletal: muscle weakness (generalized) Extremities: edema (none) Neurological: other (No focal deficits) Labs Result Diagram: 11/03/1815 11/01/18 0530 Medications Medications Current Medications IV Flush (NS 3 ml) 3 ml PER PROTOCOL IV ; Start 10/18/18 at 21:30 Ondansetron HCl (Zofran Inj) 4 mg Q6H PRN IV NAUSEA/VOMITING; Start 10/18/18 at 21:30 Acetaminophen (Tylenol Tab) 650 mg Q6H PRN PO .PAIN 1-3 OR TEMP Last administered on 11/02/18 10:33; Admin Dose 650 MG; Start 10/18/18 at 21:30 Enoxaparin Sodium (Lovenox) 30 mg DAILY SC Last administered on 11/04/18 08:27; Admin Dose 30 MG; Start 10/19/18 at 09:00 Famotidine (Pepcid) 20 mg Q12 PO Last administered on 11/04/18 08:26; Admin Dose 20 MG; Start 10/21/18 at 21:00 Morphine Sulfate (morphine) 6 mg Q4H PRN PO SEVERE PAIN LEVEL 7-10 Last administered on 11/03/18 00:20; Admin Dose 6 MG; Start 10/21/18 at 23:00 Tramadol HCl (Ultram) 50 mg Q6H PRN PO MODERATE PAIN LEVEL 4-6 Last administered on 11/04/18 10:35; Admin Dose 50 MG; Start 10/22/18 at 18:00 Dextrose/Sodium Chloride 1,000 ml @ 75 mls/hr [id number] IV Last administered on 11/04/18 03:05; Admin Dose 75 MLS/HR; Start 10/22/18 at 18:30 Midodrine (Proamatine) 5 mg Q8 PRN PO SBP<90 Last administered on 10/31/18 08:49; Admin Dose 5 MG; Start 10/23/18 at 14:30 Acetylcysteine (Mucomyst) 2 ml Q6H RESP THERAPY NEB Last administered on 11/04/18 08:01; Admin Dose 2 ML; Start 10/28/18 at 16:30 Albuterol/ Ipratropium (Duoneb) 3 ml Q6H RESP THERAPY HHN Last administered on 11/04/18 08:01; Admin Dose 3 ML; Start 10/29/18 at 14:00 Docusate Sodium (Colace) 100 mg BID PO Last administered on 11/04/18 08:26; Admin Dose 100 MG; Start 10/29/18 at 11:00 Bisacodyl (Dulcolax) 10 mg DAILY PRN PO CONSTIPATION Last administered on 11/02/18 09:13; Admin Dose 10 MG; Start 10/29/18 at 11:00 Lorazepam (Ativan) 1 mg Q4 PRN IV AGITATION/ANXIETY Last administered on 10/30/18 02:06; Admin Dose 1 MG; Start 10/30/18 at 02:00 Fluconazole (Diflucan) 100 mg DAILY GTB Last administered on 11/04/18 08:27; Admin Dose 100 MG; Start 11/02/18 at 09:00 Metoprolol Tartrate (Lopressor) 5 mg Q4H PRN IV HR>110 Hold SBP<100; Start 11/03/18 at 12:00 Ceftazidime 50 ml @ 100 mls/hr Q8 IVPB Last administered on 11/04/18 05:29; Admin Dose 100 MLS/HR; Start 11/03/18 at 14:30 NOE SAWYER Nov 04, 2018 11:40
--- NOTE | 2018-11-04 14:15 | CONS ---
Consult Date/Type/Reason Admit Date/Time Oct 18, 2018 at 21:17 Initial Consult Date Type of Consult Pulmonary Requesting Provider: ADAM CLEMENS MD Date/Time of Note DATE: 11/04/18 TIME: 14:14 Subjective Patient still has a few secretions but less dyspnea. Objective Vital Signs Date Temp Pulse Resp B/P (MAP) Pulse Ox O2 O2 Flow FiO2 Time Delivery Rate 11/04/18 109 14:10 11/04/18 129/86 12:19 (100) 11/04/18 98.4 20 96 Mechanical 11:53 Ventilator 11/04/18 50 08:00 Intake and Output 11/03/18 11/03/18 11/04/18 1515:00 23:00 07:00 IntakeIntake Total 50 ml 1700 ml 675 ml BalanceBalance 50 ml 1700 ml 675 ml Exam PHYSICAL EXAMINATION: GENERAL: Chronically ill appearing gentleman, comfortable at rest, in no acute distress. VITAL SIGNS: NECK: Trach site is clean and intact. CARDIAC: S1, S2. No added sounds or murmurs. CHEST: Diminished air entry bilaterally. ABDOMEN: Soft, nontender. No guarding or rebound. EXTREMITIES: No cyanosis, clubbing, edema. NEUROLOGIC: Generalized weakness. Vent Setting Ventilator Support Mode: AC Fraction of Inspired Oxygen pe: 50 Positive End Expiratory Pressu: 5.0 Results/Medications Result Diagram: 11/03/18 0515 11/01/18 0530 Results 24 hrs Laboratory Tests Test 11/04/18 12:25 Blood Gas Specimen Source Blood arterial Arterial Blood Date Drawn 11/04/2018 12:49:37 PM Arterial Blood pH (Temp corrected) 7.467 H Arterial Blood pCO2 (Temp correct) 31.1 L Arterial Blood pO2 (Temp corrected) 117.1 H Arterial Blood HCO3 22.0 Arterial Blood Base Excess -1.1 Arterial Blood Oxygen Saturation 98.4 H Farhan Test ACCEPTAB Arterial Blood Gas Puncture Site Right Radial Arterial Blood Carboxyhemoglobin 0.3 Arterial Blood Methemoglobin 0.1 Blood Gas A-a O2 Differential 168.4 H Oxyhemoglobin Percent 98.0 Blood Gas Temperature 37.0 Blood Gas Respiration Rate 18.0 Blood Gas Actual Respiration Rate 18 Blood Gas Modality VENT - PC FiO2 45.0 Blood Gas Low PEEP Setting 5.0 Blood Gas Notified Whom TM Blood Gas Notified Time 11/04/2018 12:57:29 PM Medications Current Medications IV Flush (NS 3 ml) 3 ml PER PROTOCOL IV ; Start 10/18/18 at 21:30 Ondansetron HCl (Zofran Inj) 4 mg Q6H PRN IV NAUSEA/VOMITING; Start 10/18/18 at 21:30 Acetaminophen (Tylenol Tab) 650 mg Q6H PRN PO .PAIN 1-3 OR TEMP Last administered on 11/02/18 10:33; Admin Dose 650 MG; Start 10/18/18 at 21:30 Enoxaparin Sodium (Lovenox) 30 mg DAILY SC Last administered on 11/04/18 08:27; Admin Dose 30 MG; Start 10/19/18 at 09:00 Famotidine (Pepcid) 20 mg Q12 PO Last administered on 11/04/18 08:26; Admin Dose 20 MG; Start 10/21/18 at 21:00 Morphine Sulfate (morphine) 6 mg Q4H PRN PO SEVERE PAIN LEVEL 7-10 Last administered on 11/03/18 00:20; Admin Dose 6 MG; Start 10/21/18 at 23:00 Tramadol HCl (Ultram) 50 mg Q6H PRN PO MODERATE PAIN LEVEL 4-6 Last administered on 11/04/18 10:35; Admin Dose 50 MG; Start 10/22/18 at 18:00 Dextrose/Sodium Chloride 1,000 ml @ 75 mls/hr [id number] IV Last administered on 11/04/18 03:05; Admin Dose 75 MLS/HR; Start 10/22/18 at 18:30 Midodrine (Proamatine) 5 mg Q8 PRN PO SBP<90 Last administered on 10/31/18 08:49; Admin Dose 5 MG; Start 10/23/18 at 14:30 Acetylcysteine (Mucomyst) 2 ml Q6H RESP THERAPY NEB Last administered on 11/04/18 14:13; Admin Dose 2 ML; Start 10/28/18 at 16:30 Albuterol/ Ipratropium (Duoneb) 3 ml Q6H RESP THERAPY HHN Last administered on 11/04/18 14:13; Admin Dose 3 ML; Start 10/29/18 at 14:00 Docusate Sodium (Colace) 100 mg BID PO Last administered on 11/04/18 08:26; Ad min Dose 100 MG; Start 10/29/18 at 11:00 Bisacodyl (Dulcolax) 10 mg DAILY PRN PO CONSTIPATION Last administered on 11/02/18at 09:13; Admin Dose 10 MG; Start 10/29/18 at 11:00 Lorazepam (Ativan) 1 mg Q4 PRN IV AGITATION/ANXIETY Last administered on 10/30/18at 02:06; Admin Dose 1 MG; Start 10/30/18 at 02:00 Fluconazole (Diflucan) 100 mg DAILY GTB Last administered on 11/04/18 08:27; Admin Dose 100 MG; Start 11/02/18 at 09:00 Metoprolol Tartrate (Lopressor) 5 mg Q4H PRN IV HR>110 Hold SBP<100; Start 11/03/18 at 12:00 Ceftazidime 50 ml @ 100 mls/hr Q8 IVPB Last administered on 11/04/18 05:29; Admin Dose 100 MLS/HR; Start 11/03/18 at 14:30 Assessment/Plan Hospital Course (Demo Recall) IMPRESSION Left lung volume loss likely secondary to mucous plugging and possible aspiration component. Chest x-ray shows resolved left lung atelectasis. Improved aeration. Plan 1. Chest PT. percussion 2. Mucomyst. 3. Current vent settings with PMV trials. 4. Aspiration precautions. 5. DVT and GI prophylaxis. dc planning ok from pulm from standpoint. ROLANDO COLIN MD, FCCP Nov 04, 2018 14:14
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
[2018-11-04] MEDS: ACETAMINOPHEN 325 MG TAB PO PRN (23:37)
[2018-11-05] VITALS (24 sets, daily range): BP systolic 87–143; BP diastolic 55–95; PULSE 66–122; RESP 18–30
[2018-11-05] MEDS: ALBUTEROL/IPRATROPIUM (NEB) 3 ML AMP HHN SCH ×4 (01:55→20:56)
[2018-11-05] MEDS: ACETYLCYSTEINE 20% 4 ML VIAL NEB SCH ×4 (02:02→20:56)
[2018-11-05] MEDS: morphine LIQ (10 MG/5 ML) CUP PO PRN (02:36)
[2018-11-05] MEDS: DOCUSATE SODIUM 100 MG CAP PO SCH ×2 (08:42→21:00)
[2018-11-05] MEDS: FLUCONAZOLE 100 MG TAB GTB SCH (08:42)
[2018-11-05] MEDS: FAMOTIDINE 20 MG TAB PO SCH ×2 (08:42→21:00)
[2018-11-05] MEDS: ENOXAPARIN 30 MG/0.3 ML SYG SC SCH (08:48)
--- NOTE | 2018-11-05 09:05 | CONS ---
Consult Date/Type/Reason Admit Date/Time Oct 18, 2018 at 21:17 Initial Consult Date Requesting Provider: ADAM CLEMENS MD Date/Time of Note DATE: 11/05/18 TIME: 09:03 Subjective NO ACUTE change - pt comfirtable, alert - no CP - no pauses ROS: No fever, no chills, no nausea, no vomiting, no diarrhea/constipation No recent weight changes No chest pain, no PND, no orthopnea - chronic SOB No dizziness, blurred vision No thirst, no heat or cold intolerance Objective Vitals Vital Signs Date Temp Pulse Resp B/P (MAP) Pulse Ox O2 O2 Flow FiO2 Time Delivery Rate 11/05/18 122 09:01 11/05/18 30 96 35 08:17 11/05/18 98.8 113/71 04:25 (85) 11/04/18 Mechanical 15:55 Ventilator Intake and Output 11/04/18 11/04/18 11/05/18 1515:00 23:00 07:00 IntakeIntake Total 1665 ml 850 ml BalanceBalance 1665 ml 850 ml Exam ,General: WN/WD/NAD, AOx 2-3 responds appropriately HEENT: Unicetric/atraumatic/EOMI ( follow commands) NECK: trach Lymph: no lymphadenopathy HEART: regular with no S3, II/ systolic murmur at apex LUNGS: Coarse sounds ABD: soft, NT, ND, +BS : Intact Neuro: non focal SKIN: chronic changes EXT: trace edema Results/Medications Result Diagram: 11/05/1828 11/05/18527 Results 24 hrs Laboratory Tests Test 11/04/18 12:25 11/05/18 05:28 Blood Gas Specimen Source Blood arterial Arterial Blood Date Drawn 11/04/2018 12:49:37 PM Arterial Blood pH (Temp corrected) 7.467 H Arterial Blood pCO2 (Temp correct) 31.1 L Arterial Blood pO2 (Temp corrected) 117.1 H Arterial Blood HCO3 22.0 Arterial Blood Base Excess -1.1 Arterial Blood Oxygen Saturation 98.4 H Farhan Test ACCEPTAB Arterial Blood Gas Puncture Site Right Radial Arterial Blood Carboxyhemoglobin 0.3 Arterial Blood Methemoglobin 0.1 Blood Gas A-a O2 Differential 168.4 H Oxyhemoglobin Percent 98.0 Blood Gas Temperature 37.0 Blood Gas Respiration Rate 18.0 Blood Gas Actual Respiration Rate 18 Blood Gas Modality VENT - PC FiO2 45.0 Blood Gas Low PEEP Setting 5.0 Blood Gas Notified Whom TM Blood Gas Notified Time 11/04/2018 12:57:29 PM White Blood Count 8.2 Red Blood Count 3.62 L Hemoglobin 9.9 L Hematocrit 33.2 L Mean Corpuscular Volume 91.7 Mean Corpuscular Hemoglobin 27.3 L Mean Corpuscular Hemoglobin Concent 29.8 L Red Cell Distribution Width 14.4 Platelet Count 429 H Mean Platelet Volume 9.1 Immature Granulocytes % 0.400 Neutrophils % 61.0 Lymphocytes % 28.1 Monocytes % 5.6 Eosinophils % 4.4 Basophils % 0.5 Nucleated Red Blood Cells % 0.0 Immature Granulocytes # 0.030 Neutrophils # 5.0 Lymphocytes # 2.3 Monocytes # 0.5 Eosinophils # 0.4 Basophils # 0.0 Nucleated Red Blood Cells # 0.0 Sodium Level 144 Potassium Level 3.7 Chloride Level 109 Carbon Dioxide Level 24 Anion Gap 11 Blood Urea Nitrogen 22 H Creatinine 0.77 Est Glomerular Filtrat Rate mL/min > 60 Glucose Level 107 Calcium Level 9.5 Home Meds Reported Medications Ipratropium-Albuterol (Ipratropium-Albuterol) 0.5-3 Mg/3 Ml Ampul.neb, 3 ML INHALATION Q6, #30 VIAL 10/18/18 Vit C-Ascorbate Ca-Ascorb Sod (Vitamin C) 500 Mg/15 Ml Liquid, 5 ML GTB DAILY, ML 10/18/18 Tramadol HCl (Tramadol HCl) 50 Mg Tablet, 50 MG GTB BID PRN for PAIN, #60 TAB 10/18/18 Acetaminophen* (Tylenol*) 500 Mg Tab, 1000 MG GTB Q4H PRN for PAIN 7-9/10, TAB 10/18/18 Acetaminophen* (Tylenol*) 325 Mg Tablet, 650 MG GTB NEEDED PRN for TRACH TUBE CHANGE, TAB 10/18/18 Acetaminophen* (Tylenol*) 325 Mg Tablet, 650 MG GTB Q4H PRN for MILD PAIN LEVEL 1-3, TAB AND FEVER 101F 10/18/18 Budesonide* (Budesonide*) 0.5 Mg/2 Ml Ampul.neb, 0.5 MG INHALATION BID, AMP 10/18/18 Omeprazole* (Omeprazole*) 20 Mg Capsule.dr, 20 MG GTB DAILY, #30 CAP 10/18/18 Multivitamins* (Theragran*) 1 Tab Tab, 1 TAB GTB BID, TAB 10/18/18 Midodrine* (Midodrine*) 10 Mg Tablet, 10 MG GTB TID, TAB HOLD FOR SBP ABOVE 140 10/18/18 Enoxaparin Sodium* (Lovenox*) 30 Mg/0.3 Ml Disp.syrin, 30 MG SQ DAILY, SYR 10/18/18 Ferrous Sulfate* (Ferrous Sulfate*) 220 Mg/5 Ml Solution, 7.5 ML GTB DAILY, ML 10/18/18 Cranberry Extract (Cranberry) 425 Mg Capsule, 425 MG GTB TID, CAP 10/18/18 Docusate Sodium* (Colace*) 100 Mg Capsule, 200 MG GTB QHS, #30 CAP 10/18/18 Chlorhexidine Gluconate (Periogard) 473 Ml Mouthwash, 15 ML MM Q12H, BOTTLE 10/18/18 Aspirin* (Aspirin* Chew) 81 Mg Tab.chew, 81 MG GTB DAILY, TAB.CHEW 10/18/18 Acidophilus/Pectin, Platinum (ACIDOPHILUS PROBIOTIC CAPSULE) 1 Each Capsule, 1 EACH GTB BID, CAP 10/18/18 Medications Current Medications IV Flush (NS 3 ml) 3 ml PER PROTOCOL IV ; Start 10/18/18 at 21:30 Ondansetron HCl (Zofran Inj) 4 mg Q6H PRN IV NAUSEA/VOMITING; Start 10/18/18 at 21:30 Acetaminophen (Tylenol Tab) 650 mg Q6H PRN PO .PAIN 1-3 OR TEMP Last administered on 11/04/18at 23:37; Admin Dose 650 MG; Start 10/18/18 at 21:30 Enoxaparin Sodium (Lovenox) 30 mg DAILY SC Last administered on 11/05/18at 08:48; Admin Dose 30 MG; Start 10/19/18 at 09:00 Famotidine (Pepcid) 20 mg Q12 PO Last administered on 11/05/18at 08:42; Admin Dose 20 MG; Start 10/21/18 at 21:00 Morphine Sulfate (morphine) 6 mg Q4H PRN PO SEVERE PAIN LEVEL 7-10 Last administered on 11/05/18at 02:36; Admin Dose 6 MG; Start 10/21/18 at 23:00 Tramadol HCl (Ultram) 50 mg Q6H PRN PO MODERATE PAIN LEVEL 4-6 Last administered on 11/04/18 21:55; Admin Dose 50 MG; Start 10/22/18 at 18:00 Dextrose/Sodium Chloride 1,000 ml @ 75 mls/hr [id number] IV Last administered on 11/04/18 23:08; Admin Dose 75 MLS/HR; Start 10/22/18 at 18:30 Midodrine (Proamatine) 5 mg Q8 PRN PO SBP<90 Last administered on 10/31/18 08:49; Admin Dose 5 MG; Start 10/23/18 at 14:30 Acetylcysteine (Mucomyst) 2 ml Q6H RESP THERAPY NEB Last administered on 11/05/18 08:06; Admin Dose 2 ML; Start 10/28/18 at 16:30 Albuterol/ Ipratropium (Duoneb) 3 ml Q6H RESP THERAPY HHN Last administered on 11/05/18 08:06; Admin Dose 3 ML; Start 10/29/18 at 14:00 Docusate Sodium (Colace) 100 mg BID PO Last administered on 11/05/18 08:42; Admin Dose 100 MG; Start 10/29/18 at 11:00 Bisacodyl (Dulcolax) 10 mg DAILY PRN PO CONSTIPATION Last administered on 11/02/18 09:13; Admin Dose 10 MG; Start 10/29/18 at 11:00 Lorazepam (Ativan) 1 mg Q4 PRN IV AGITATION/ANXIETY Last administered on 10/30/18 02:06; Admin Dose 1 MG; Start 10/30/18 at 02:00 Fluconazole (Diflucan) 100 mg DAILY GTB Last administered on 11/05/18 08:42; Admin Dose 100 MG; Start 11/02/18 at 09:00 Metoprolol Tartrate (Lopressor) 5 mg Q4H PRN IV HR>110 Hold SBP<100; Start 11/03/18 at 12:00 Assessment/Plan Hospital Course (Demo Recall) 1. Cardiac pause x approximately 5 seconds in the setting of a vented patient with no signs of significant conduction system disease by EKG. Likely primary pulmonary event with possible mucus plugging congestion of the patient's tracheostomy or sleep apnea. Continue to follow.- no receurrnce by tele in last 24 hours. NL EF by echo EF 55. Neg trop x 3. NL TSH - no new pauses now, will monitor clinically. NO new pauses - no indictaion for pacer. 2. Abnormal electrocardiogram, borderline anterior R-wave progression status post acute coronary syndrome, unlikely. 3. Chronic respiratory failure, status post trach.Con't resp Rx. 4. Dysphagia, status post G-tube- con't feeds. 5. Chronic encephalopathy - more alert now. 6. Left hemithorax whiteout; question mucous plugging, collapse. Pulmonary team follows. BETTER now. 7. Anemia - H/H satble - con't to follow. 8. Thrombocytosis. QUINTIN OWEN MD Nov 05, 2018 09:05
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
--- NOTE | 2018-11-05 15:04 | CONS ---
Consult Date/Type/Reason Admit Date/Time Oct 18, 2018 at 21:17 Initial Consult Date Type of Consult Pulmonary Requesting Provider: ADAM CLEMENS MD Date/Time of Note DATE: 11/05/18 TIME: 15:04 Subjective Patient stable no respiratory distress Objective Vital Signs Date Temp Pulse Resp B/P (MAP) Pulse Ox O2 O2 Flow FiO2 Time Delivery Rate 11/05/18 89 13:43 11/05/18 18 98 35 13:19 11/05/18 98.6 87/55 (66) Mechanical 11:13 Ventilator Intake and Output 11/04/18 11/04/18 11/05/18 1414:59 22:59 06:59 IntakeIntake Total 1640 ml 875 ml BalanceBalance 1640 ml 875 ml Exam PHYSICAL EXAMINATION: GENERAL: Chronically ill appearing gentleman, comfortable at rest, in no acute distress. VITAL SIGNS: NECK: Trach site is clean and intact. CARDIAC: S1, S2. No added sounds or murmurs. CHEST: Diminished air entry bilaterally. ABDOMEN: Soft, nontender. No guarding or rebound. EXTREMITIES: No cyanosis, clubbing, edema. NEUROLOGIC: Generalized weakness. Vent Setting Ventilator Support Mode: PC Fraction of Inspired Oxygen pe: 35 Positive End Expiratory Pressu: 5.0 Results/Medications Result Diagram: 11/05/1852711/05/18527 Results 24 hrs Laboratory Tests Test 11/05/18 05:28 White Blood Count 8.2 Red Blood Count 3.62 L Hemoglobin 9.9 L Hematocrit 33.2 L Mean Corpuscular Volume 91.7 Mean Corpuscular Hemoglobin 27.3 L Mean Corpuscular Hemoglobin Concent 29.8 L Red Cell Distribution Width 14.4 Platelet Count 429 H Mean Platelet Volume 9.1 Immature Granulocytes % 0.400 Neutrophils % 61.0 Lymphocytes % 28.1 Monocytes % 5.6 Eosinophils % 4.4 Basophils % 0.5 Nucleated Red Blood Cells % 0.0 Immature Granulocytes # 0.030 Neutrophils # 5.0 Lymphocytes # 2.3 Monocytes # 0.5 Eosinophils # 0.4 Basophils # 0.0 Nucleated Red Blood Cells # 0.0 Sodium Level 144 Potassium Level 3.7 Chloride Level 109 Carbon Dioxide Level 24 Anion Gap 11 Blood Urea Nitrogen 22 H Creatinine 0.77 Est Glomerular Filtrat Rate mL/min > 60 Glucose Level 107 Calcium Level 9.5 Medications Current Medications IV Flush (NS 3 ml) 3 ml PER PROTOCOL IV ; Start 10/18/18 at 21:30 Ondansetron HCl (Zofran Inj) 4 mg Q6H PRN IV NAUSEA/VOMITING; Start 10/18/18 at 21:30 Acetaminophen (Tylenol Tab) 650 mg Q6H PRN PO .PAIN 1-3 OR TEMP Last administered on 11/04/18 23:37; Admin Dose 650 MG; Start 10/18/18 at 21:30 Enoxaparin Sodium (Lovenox) 30 mg DAILY SC Last administered on 11/05/18 08:48; Admin Dose 30 MG; Start 10/19/18 at 09:00 Famotidine (Pepcid) 20 mg Q12 PO Last administered on 11/05/18 08:42; Admin Dose 20 MG; Start 10/21/18 at 21:00 Morphine Sulfate (morphine) 6 mg Q4H PRN PO SEVERE PAIN LEVEL 7-10 Last administered on 11/05/18 02:36; Admin Dose 6 MG; Start 10/21/18 at 23:00 Tramadol HCl (Ultram) 50 mg Q6H PRN PO MODERATE PAIN LEVEL 4-6 Last administered on 11/04/18 21:55; Admin Dose 50 MG; Start 10/22/18 at 18:00 Dextrose/Sodium Chloride 1,000 ml @ 75 mls/hr [id number] IV Last administered on 11/04/18 23:08; Admin Dose 75 MLS/HR; Start 10/22/18 at 18:30 Midodrine (Proamatine) 5 mg Q8 PRN PO SBP<90 Last administered on 10/31/18 08:49; Admin Dose 5 MG; Start 10/23/18 at 14:30 Acetylcysteine (Mucomyst) 2 ml Q6H RESP THERAPY NEB Last administered on 11/05/18 13:25; Admin Dose 2 ML; Start 10/28/18 at 16:30 Albuterol/ Ipratropium (Duoneb) 3 ml Q6H RESP THERAPY HHN Last administered on 11/05/18 13:25; Admin Dose 3 ML; Start 10/29/18 at 14:00 Docusate Sodium (Colace) 100 mg BID PO Last administered on 11/05/18 08:42; Admin Dose 100 MG; Start 10/29/18 at 11:00 Bisacodyl (Dulcolax) 10 mg DAILY PRN PO CONSTIPATION Last administered on 11/02/18 09:13; Admin Dose 10 MG; Start 10/29/18 at 11:00 Lorazepam (Ativan) 1 mg Q4 PRN IV AGITATION/ANXIETY Last administered on 10/30/18 02:06; Admin Dose 1 MG; Start 10/30/18 at 02:00 Fluconazole (Diflucan) 100 mg DAILY GTB Last administered on 11/05/18 08:42; Admin Dose 100 MG; Start 11/02/18 at 09:00 Metoprolol Tartrate (Lopressor) 5 mg Q4H PRN IV HR>110 Hold SBP<100; Start 11/03/18 at 12:00 Assessment/Plan Hospital Course (Demo Recall) IMPRESSION Left lung volume loss likely secondary to mucous plugging and possible as piration component. Chest x-ray shows resolved left lung atelectasis. Improved aeration. Plan 1. Chest PT. percussion 2. Mucomyst. 3. Current vent settings with PMV trials. 4. Aspiration precautions. 5. DVT and GI prophylaxis. dc planning ok from pulm from standpoint. ROLANDO COLIN MD, [facility] Nov 05, 2018 15:04
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
[2018-11-05] MEDS: CEFTAZIDIME 1GM/50 ML (PMX) 50 ML IVPB SCH ×2 (17:36→22:24)
[2018-11-05] MEDS: DEXTROSE 5%-0.9% NACL 1,000 ML IV SCH (17:41)
[2018-11-05] MEDS: traMADol 50 MG TAB PO PRN (21:00)
[2018-11-05] MEDS ORDERED: NA PHOSPHATE/BIPHOS 133 ML ENEMA PR ONE (21:30)
[2018-11-06] VITALS (10 sets, daily range): BP systolic 101–136; BP diastolic 60–90; PULSE 65–108; RESP 18–28
[2018-11-06] MEDS: ALBUTEROL/IPRATROPIUM (NEB) 3 ML AMP HHN SCH ×2 (03:09→07:58)
[2018-11-06] MEDS: ACETYLCYSTEINE 20% 4 ML VIAL NEB SCH ×2 (03:09→07:58)
[2018-11-06] MEDS: DEXTROSE 5%-0.9% NACL 1,000 ML IV SCH (05:10)
[2018-11-06] MEDS: CEFTAZIDIME 1GM/50 ML (PMX) 50 ML IVPB SCH (06:09)
[2018-11-06] MEDS: FLUCONAZOLE 100 MG TAB GTB SCH (09:01)
[2018-11-06] MEDS: DOCUSATE SODIUM 100 MG CAP PO SCH (09:01)
[2018-11-06] MEDS: FAMOTIDINE 20 MG TAB PO SCH (09:01)
[2018-11-06] MEDS: ENOXAPARIN 30 MG/0.3 ML SYG SC SCH (09:07)
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
--- NOTE | 2018-11-06 14:27 | CONS ---
Consult Date/Type/Reason Admit Date/Time Oct 18, 2018 at 21:17 Initial Consult Date Type of Consult Pulmonary Requesting Provider: ADAM CLEMENS MD Date/Time of Note DATE: 11/06/18 TIME: 14:27 Subjective Remains stable, no shortness of breath. Objective Vital Signs Date Temp Pulse Resp B/P (MAP) Pulse Ox O2 O2 Flow FiO2 Time Delivery Rate 11/06/18 82 22 96 35 09:42 11/06/18 97.7 101/62 Mechanical 07:15 (75) Ventilator Intake and Output 11/05/18 11/05/18 11/06/18 1515:00 23:00 07:00 IntakeIntake Total 650 ml 1300 ml BalanceBalance 650 ml 1300 ml Exam PHYSICAL EXAMINATION: GENERAL: Chronically ill appearing gentleman, comfortable at rest, in no acute distress. VITAL SIGNS: NECK: Trach site is clean and intact. CARDIAC: S1, S2. No added sounds or murmurs. CHEST: Diminished air entry bilaterally. ABDOMEN: Soft, nontender. No guarding or rebound. EXTREMITIES: No cyanosis, clubbing, edema. NEUROLOGIC: Generalized weakness. Vent Setting Ventilator Support Mode: PC Fraction of Inspired Oxygen pe: 35 Positive End Expiratory Pressu: 0.0 Results/Medications Result Diagram: 11/06/18 0501 11/06/18 0501 Results 24 hrs Laboratory Tests Test 11/06/18 05:01 White Blood Count 8.0 Red Blood Count 4.11 L Hemoglobin 11.1 L Hematocrit 37.2 L Mean Corpuscular Volume 90.5 Mean Corpuscular Hemoglobin 27.0 L Mean Corpuscular Hemoglobin Concent 29.8 L Red Cell Distribution Width 14.5 Platelet Count 525 #H Mean Platelet Volume 9.4 Immature Granulocytes % 0.500 H Neutrophils % 56.7 Lymphocytes % 30.6 Monocytes % 6.9 Eosinophils % 4.5 Basophils % 0.8 Nucleated Red Blood Cells % 0.0 Immature Granulocytes # 0.040 H Neutrophils # 4.5 Lymphocytes # 2.4 Monocytes # 0.6 Eosinophils # 0.4 Basophils # 0.1 Nucleated Red Blood Cells # 0.0 Sodium Level 145 H Potassium Level 3.1 L Chloride Level 111 H Carbon Dioxide Level 20 L Anion Gap 14 H Blood Urea Nitrogen 24 H Creatinine 0.80 Est Glomerular Filtrat Rate mL/min > 60 Glucose Level 123 Calcium Level 10.0 Assessment/Plan Hospital Course (Demo Recall) IMPRESSION Left lung volume loss likely secondary to mucous plugging and possible aspiration component. Chest x-ray shows resolved left lung atelectasis. Improved aeration. Plan 1. Chest PT. percussion 2. Mucomyst. 3. Current vent settings with PMV trials. 4. Aspiration precautions. 5. DVT and GI prophylaxis. dc planning ok from pulm from standpoint. ROLANDO COLIN MD, [facility] Nov 06, 2018 14:27
--- NOTE | 2018-11-08 13:56 | RADRPT ---
Vent Rate: 72 bpm RR Interval: 0 msec IA Interval: 148 msec QRS Duration: 84 msec QT Interval: 372 msec QTC Interval: 407 msec P-R-T [place]: 40 - 4 - 21 degrees Normal sinus rhythm Normal ECG Electronically Signed By: Yobany Bedolla
== END 2018-11-06 11:20 | DRG 870 ==
LOC: E/R 19:49 → 6WM 21:17
PROVIDERS: ADMIT Internal Medicine; ATTEND Internal Medicine
PROC: 5A1955Z Respiratory Ventilation, Greater than 96 Consecutive Hours (ICD-10-PCS; principal; 2018-10-18)
DX: A41.9 Sepsis, unspecified organism (principal); G82.50 Quadriplegia, unspecified; J69.0 Pneumonitis due to inhalation of food and vomit; J96.10 Chronic respiratory failure, unspecified whether with hypoxia or hypercapnia; T17.890A Other foreign object in other parts of respiratory tract causing asphyxiation, initial encounter; G93.49 Other encephalopathy; N39.0 Urinary tract infection, site not specified; Z93.0 Tracheostomy status; Z93.1 Gastrostomy status; Z99.81 Dependence on supplemental oxygen; R13.10 Dysphagia, unspecified; D64.9 Anemia, unspecified; I49.9 Cardiac arrhythmia, unspecified; T14.8XXS Other injury of unspecified body region, sequela; W34.00XS Accidental discharge from unspecified firearms or gun, sequela
CPT/HCPCS: 36600; 71045; 80048; 80053; 80202; 81001; 82565; 82803; 83036; 83605; 83735; 84443; 84484; 84520; 85025; 85610; 85730; 87040; 87070; 87081; 87086; 92522; 92526; 92610; 93005; 93306; 94002; 94003; 94640; 94664; 94667; 94668; 94669; 96365; 96375; C1769; J0692; J1650; J2060; J2270; J3370; J7030; J7040; J7042